=== PATIENT | female | born 1985 | race Caucasian/White ===

== ENCOUNTER 2022-01-27 12:23 | Emergency (ER) | payer OTHER, SELFPAY ==
[2022-01-27] VITALS (9 sets, daily range): BP systolic 91–121; BP diastolic 54–83; PULSE 66–86; RESP 18–24; TEMP 36.4–37.8; O2SAT 95–99
--- NOTE | 2022-01-27 12:32 | DI.CT.S_ITS ---
PROCEDURE: CT HEAD/BRAIN WO CON INDICATIONS: slurred speech earlier,no longer slurring TECHNIQUE: Noncontrast 4.5 mm thick angled axial sections acquired from the foramen magnum to the vertex, with coronal and sagittal reformats. For radiation dose reduction, the following was used: automated exposure control, adjustment of mA and/or kV according to patient size. COMPARISON: None. FINDINGS: Image quality: Metallic streak artifact from external jewlery limits assessment of the posterior fossa CSF spaces: Basal cisterns are patent. No extra-axial fluid collections. Ventricles are normal in size and shape. Brain: No midline shift. No intracranial masses or hemorrhage. Joshi-white matter interface is normal. Skull and face: Calvarium and visualized facial bones are intact, without suspicious lesions. Sinuses: Visualized sinuses and mastoids are clear. IMPRESSION: Unremarkable CT of the brain within the limits of the exam Approved by: Edd Rodriguez M.D. on 01/27/2022 at 11:53
[2022-01-27 12:51] LABS: Add Manual Diff / Slide Review NO; Basophils Absolute Auto 100 /uL (0-100); Basophils Percent Auto 0.6 % (0-2); Eosinophils Absolute Auto 0 /uL (0-450); Eosinophils Percent Auto 0.4 % (2-4); Hematocrit 42.6 % (36-46); Hemoglobin 14.5 g/dL (12.0-16.0); Lymphocytes Absolute Auto 2400 /uL (1100-4500); Lymphocytes Percent Auto 24.3 % (25-40); Mean Corpuscular HGB Conc 33.9 % (30-36); Mean Corpuscular Hemoglobin 30.8 PG (26-34); Mean Corpuscular Volume 90.9 fL (80-100); Monocytes Absolute Auto 600 /uL (0-900); Monocytes Percent Auto 5.8 % (3-14); Neutrophils Absolute Auto 6800 /uL (1500-7000); Neutrophils Percent Auto 68.9 % (50-75); Platelet Count 403 X10^3/uL (150-400); Red Blood Cell Count 4.69 X10^6/uL (4.0-5.2); Red Cell Distribution Width 12.9 % (11.6-14.8); White Blood Cell Count 9.9 X10^3/uL (4.5-11.0)
[2022-01-27 13:02] LABS: Alanine Aminotransferase 22 IU/L (<35); Albumin 4.8 g/dL (3.5-5.0); Albumin Globulin Ratio 1.3 (1.0-2.8); Alkaline Phosphatase 47 U/L (38-126); Aspartate Aminotransferase 26 IU/L (14-36); BUN Creatinine Ratio 14.5 (6-22); Bilirubin Total 1.1 mg/dL (0.2-1.3); Blood Urea Nitrogen 10 mg/dL (7-17); Calcium 9.5 mg/dL (8.4-10.2); Carbon Dioxide 21 mmol/L (22-32); Chloride 103 mmol/L (98-107); Estimated Glomerular Filt Rate > 60 mL/min (>60); Globulin 3.8 g/dL (1.7-4.1); Glucose 90 mg/dL (70-100); HEMOLYSIS 15 (0-50); Potassium 3.9 mmol/L (3.4-5.1); Sodium 138 mmol/L (137-145); Total Protein 8.6 g/dL (6.3-8.2)
[2022-01-27 14:20] LABS: TSH w/ Reflex to FT4 5.82 uIU/mL (0.47-4.68)
--- NOTE | 2022-01-27 17:32 | ED.NEUROSD ---
HPI - Neuro Symptoms/Deficit General Chief Complaint: Neuro Symptoms/Deficit Stated Complaint: slurred speech/weakness/lips tingling Time Seen by Provider: 01/27/22 17:22 Source: patient Mode of arrival: Ambulatory History of Present Illness HPI Narrative: Shu is a 36-year-old woman recently diagnosed with Graves disease on PTU therapy. One week ago she had a dosage adjustment with a decrease in the dosage by 50%. She has otherwise been completely well recently. This afternoon she was at home and suddenly had a sensation of dizziness and sweats and numbness around her face sweats in her extremities and slurred difficult to understand speech according to her male partner who accompanies her. He said that she seemed to have some difficulty walking and was walking as if she were intoxicated but he did not need to actually assist her other than up some stairs. Her symptoms have dramatically improved in the hours she is been waiting here in the ER. No recent fever, no recent trauma, no other health conditions. She denies . Related Data Home Medications Medication Instructions Recorded Confirmed No Known Home Medications 02/24/21 02/24/21 Allergies Allergy/AdvReac Type Severity Reaction Status Date / Time No Known Drug Allergies Allergy Verified 01/27/22 12:27 Review of Systems Review of Systems Narrative: Complete review of systems is negative other than as noted above Patient History Social History Smoking Status: Never smoker Smoking Status: Never smoker alcohol intake frequency: holidays/special occasions only Substance Use Type: does not use Exam Narrative Exam Narrative: GENERAL: Alert, cooperative and in no distress. HEAD: Atraumatic. Normocephalic. EYES: Sclera are clear without icterus. Extraocular movements are full. ENT: No rhinorrhea. Oropharynx is moist. Mouth exam is benign. NECK: Supple. Full range of motion. CARDIOVASCULAR: Normal rate and rhythm without murmur gallop or rub. RESPIRATORY: Clear to auscultation. Breath sounds equal bilaterally. No wheezes, rales, or rhonchi. GASTROINTESTINAL: Abdomen soft, non-tender, nondistended. EXTREMITIES: No edema, full range of motion. No obvious trauma. BACK: Normal inspection, no CVA tenderness. NEURO: Nonfocal examination, normal speech, normal gait. SKIN: No rash or erythema of visible areas PSYCH: Normally oriented. Normal range of affect. Appropriate behavior Cranial nerves are intact, lateral gaze is preserved. There are no visual field deficits. She has normal strength in the upper and lower extremities. Normal cerebellar exam of the upper and lower extremities as well. Initial Vital Signs Initial Vital Signs: Vital Signs Temperature 98.2 F 01/27/22 12:27 Pulse Rate 86 01/27/22 12:27 Respiratory Rate 24 01/27/22 12:27 Blood Pressure 121/83 01/27/22 12:27 Pulse Oximetry 99 01/27/22 12:27 Oxygen Delivery Method 01/27/22 12:27 Course Orders Ordered: ED Orders 01/27/22 12:32 CT head/brain wo con Stat 01/27/22 12:40 Complete Blood Count AUTO DIFF Stat Comprehensive Metabolic Panel Stat Free T4, Direct Thyroxine Stat TSH w/ Reflex to FT4 Stat 01/27/22 18:08 CT angio head and neck Stat Consultations Consultation #1: I discussed the case with Dr. Peng who reviewed the endocrinologic data from his clinic and did not think that PTU was a culpable substance causing the symptoms described. Recommended close outpatient follow-up which is already arranged for tomorrow. Vital Signs Vital signs: Vital Signs - 8 hr 01/27/22 12:27 01/27/22 15:41 01/27/22 17:30 Temperature 98.2 F 100.1 F H 97.5 F L Pulse Rate 86 74 75 Respiratory Rate 24 Blood Pressure 121/83 112/73 121/66 Pulse Oximetry 99 98 99 Oxygen Delivery Method Room Air Room Air Room Air MDM - Neuro Symptoms/Deficit Medical Records Medical records narrative: I can not elicit an abnormality on neurologic examination which is a thorough exam including gait assessment. However, her partner reports a clear-cut gait abnormality earlier today. He also endorses speech disturbance earlier today. This is not currently present. Without a good alternative diagnosis I think vertebral artery dissection should be excluded with posterior circulation ischemia being the thing I am looking for. Will add on CTA head and neck to exclude this and if normal will refer for outpatient follow-up tomorrow as previously arranged. Lab Data Result diagrams: 01/27/22 12:40 01/27/22 12:40 Labs: Lab Results 01/27/22 01/27/22 01/27/22 Range/Units 12:40 12:40 12:40 WBC 9.9 (4.5-11.0) X10^3/uL RBC 4.69 (4.0-5.2) X10^6/uL Hgb 14.5 (12.0-16.0) g/dL Hct 42.6 (36-46) % MCV 90.9 (80-100) fL MCH 30.8 (26-34) PG MCHC 33.9 (30-36) % RDW 12.9 (11.6-14.8) % Plt Count 403 H (150-400) X10^3/uL Neut % (Auto) 68.9 (50-75) % Lymph % (Auto) 24.3 L (25-40) % [place] % (Auto) 5.8 (3-14) % Eos % (Auto) 0.4 L (2-4) % Baso % (Auto) 0.6 (0-2) % Neut # (Auto) 6800 (0394-6748) /uL Lymph # (Auto) 2400 (5539-2298) /uL [place] # (Auto) 600 (0-900) /uL Eos # (Auto) 0 (0-450) /uL Baso # (Auto) 100 (0-100) /uL Sodium 138 (137-145) mmol/L Potassium 3.9 (3.4-5.1) mmol/L Chloride 103 (98-107) mmol/L Carbon Dioxide 21 L (22-32) mmol/L BUN 10 (7-17) mg/dL Creatinine 0.69 (0.52-1.04) mg/dL Estimated GFR > 60 (>60) mL/min BUN/Creatinine Ratio 14.5 (6-22) Glucose 90 (70-100) mg/dL Calcium 9.5 (8.4-10.2) mg/dL Total Bilirubin 1.1 (0.2-1.3) mg/dL AST 26 (14-36) IU/L ALT 22 (<35) IU/L Alkaline Phosphatase 47 (38-126) U/L Total Protein 8.6 H (6.3-8.2) g/dL Albumin 4.8 (3.5-5.0) g/dL Globulin 3.8 (1.7-4.1) g/dL Albumin/Globulin Ratio 1.3 (1.0-2.8) TSH 5.82 H (0.47-4.68) uIU/mL Free T4 0.70 L (0.78-2.19) ng/dL Point of Care Testing Test Results Negative Urine Dip Bedside Urine Glucose Negative Bedside Urine Bilirubin - Negative Bedside Urine Ketone - Negative Urine Specific [place] 1.000 Bedside Urine Occult Blood - Negative Bedside Urine pH 7.0 Bedside Urine Protein - Negative Bedside Urine Urobilinogen - Negative Bedside Urine Nitrite - Negative Bedside Urine Leukocytes - Negative Esterase Imaging Data CT scan - head: Radiologist's Impression: IMPRESSION:? Unremarkable CT of the brain within the limits of the exam ? ? ? Approved by: Edd Rodriguez M.D. on 01/27/2022 at 11:53? 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 Consider MRI for further evaluation if needed. MDM Narrative Medical decision making narrative: Given the severity of the neurologic symptoms reported by her and her partner, I felt that definitive vertebral artery dissection evaluation should be accomplished. CTA head and neck is reassuring. I think outpatient follow-up at this point is safe and appropriate with her pad machine feeder. I did tell them that they should return immediately to the ER for new or progressive symptoms. Otherwise follow-up with Endocrinology tomorrow as planned. Discharge Plan Departure Patient Disposition: Home Clinical Impression: Vertigo, Gait disturbance Activity Restrictions/Additional Instructions: No dangerous cause for the symptoms you reported to me have been identified on detailed imaging evaluation including posterior circulation evaluation CT angiography. Your examination for me at this time is normal. Laboratory data is also reassuring. I recommend follow-up with your pad machine feeder tomorrow as planned. Please return to the ER right away for new or progressive symptoms. Prescriptions: No Action No Known Home Medications
--- NOTE | 2022-01-27 18:08 | DI.CT.S_ITS ---
PROCEDURE: CT ANGIO HEAD AND NECK INDICATIONS: gait disturbance TECHNIQUE: After the administration of intravenous contrast, 1 mm thick sections acquired from the aortic arch through the [place] of [place]. Post-contrast 4.5 mm thick sections then re-acquired from the foramen magnum to the vertex. 3-dimensional lpzrbda-wuyvdibsa-ugxokocodx (MIP) and/or volume rendering reformats were acquired of the central intracranial vasculature and neck separately. For radiation dose reduction, the following was used: automated exposure control, adjustment of mA and/or kV according to patient size. COMPARISON: Same-day head CT FINDINGS: Image quality: Limited by venous contamination. Head angiography: Anterior circulation: ICAs: Normal and symmetric ACAs: Normal and symmetric MCAs: Normal and symmetric AComm: No aneurysm Venous sinuses: patent Posterior circulation: Dominance: Equal Vertebral arteries: No stenosis or occlusion. No aneurysm. Basilar artery: Unremarkable PComms: No aneurysm reading assistant: Unremarkable Neck angiography: Aortic arch and subclavian arteries: Normal flow, no aneurysm. CCAs: No stenosis, occlusion, or aneurysm. ICA origins (by NASCET criteria): No hemodynamically significant narrowing. ICAs: No stenosis, occlusion or aneurysm. ECAs: Origins are patent. Vertebral arteries: Unremarkable Soft tissues: 2.6 cm left thyroid nodule. Soft tissues are otherwise unremarkable. Lung apices: No pneumothorax Bones: No acute or suspicious abnormality. Kyphosis of the cervical spine. IMPRESSION: No high-grade stenosis, dissection, or large vessel occlusion. Consider MRI for further evaluation if needed. Incidental left thyroid nodule can be further evaluated with ultrasound. Any quantitative measurements of stenosis were performed using NASCET criteria. Dictated by: Justino Peraza M.D. on 01/27/2022 at 19:37 Approved by: Justino Peraza M.D. on 01/27/2022 at 19:45
== END 2022-01-27 20:16 | disposition home or self-care (01) ==
PROVIDERS: Emergency Medicine; Emergency Provider Family Medicine Addiction Medicine
DX: R42 Dizziness and giddiness (principal); R26.9 Unspecified abnormalities of gait and mobility
CPT/HCPCS: 36415; 70450; 70496; 70498; 80053; 81003; 81025; 84439; 84443; 85025; 99284

== ENCOUNTER 2022-02-01 10:46 | Emergency (ER) | payer OTHER, SELFPAY ==
[2022-02-01 11:01] VITALS: BP 128/78; PULSE 64; RESP 16; TEMP 36.9; O2SAT 98; BMI 29.7
--- NOTE | 2022-02-01 11:19 | ED_ITS ---
HPI - Back Pain/Injury General Chief Complaint: Back Pain/Injury Stated Complaint: severe back pain, numbness on LT leg/buttocks Time Seen by Provider: 02/01/22 10:51 History of Present Illness HPI Narrative: Shu is a 36-year-old woman recently diagnosed with Graves disease on PTU the rapy presents with low back pain down her left leg. She denies any trauma or injury. She is had no fever or chills and denies use of blood thinners. She is had back pain off and on it various times but never quite like this. Her pain is worse when she moves and improves with rest. She denies any loss of control of bowel or bladder, she has no lower extremity weakness or footdrop. She had been seen by her primary care provider on Wednesday and was given oxycodone and a 5 day course of prednisone and return precautions included presentation to the emergency department for worsening symptoms, she has developed some numbness down this leg hence her visit. She took her oxycodone and prednisone already earlier today, she was able to obtain some gabapentin from a family member and took 100 mg at about 5:00 a.m. and states that did help some Related Data Previous Rx's Medication Instructions Recorded cyclobenzaprine 10 mg tablet 10 mg PO TID PRN muscle spasm #14 02/01/22 tabs gabapentin 300 mg capsule 300 mg PO BEDTIME #14 caps 02/01/22 ketorolac 10 mg tablet 10 mg PO Q6H PRN pain #14 tabs 02/01/22 methylprednisolone 4 mg tablets in See Rx Instructions PO .COMPLEX 02/01/22 a dose pack (Medrol (Bear)) #21 ea Allergies Allergy/AdvReac Type Severity Reaction Status Date / Time No Known Drug Allergies Allergy Verified 01/27/22 12:27 Review of Systems Review of Systems Narrative: GENERAL: Denies chills, fatigue, malaise, fever, sweats. HEENT: Denies sinus pain, ear pain, sore throat, difficulty swallowing, dizziness. RESPIRATORY: Denies dyspnea, cough, wheezing, hemoptysis, sputum. CARDIOVASCULAR: Denies chest pain, palpitations, orthopnea, edema, GASTROINTESTINAL: Denies nausea, vomiting, abdominal pain, diarrhea, constipation, melena. : Denies dysuria, frequency, incontinence, hematuria, urinary retention. MUSCULOSKELETAL: See HPI SKIN: Denies rash, skin lesions, or other NEUROLOGIC: See HPI PSYCHIATRIC: No concerning psychosocial issues. 12 point review of systems is negative except for those stated above Patient History Social History Smoking Status: Never smoker Smoking Status: Never smoker alcohol intake frequency: holidays/special occasions only Substance Use Type: does not use Exam Narrative Exam Narrative: GENERAL: [36] year old patient appears stated age. Well-developed patient, in mild distress. HEAD: Atraumatic. Normocephalic. EYES: Pupils equal round and reactive. Extraocular motions intact. No scleral icterus. No injection or drainage. ENT: Nose without bleeding, purulent drainage. Throat without erythema, tonsillar hypertrophy or exudate. Airway patent. NECK: Trachea midline. Non tender CARDIOVASCULAR: Regular rate and rhythm without murmurs, gallops, or rubs. RESPIRATORY: Clear to auscultation. Breath sounds equal bilaterally. No wheezes, rales, or rhonchi. GASTROINTESTINAL: Abdomen soft, non-tender, nondistended. EXTREMITIES: No edema or joint tenderness. BACK: abrading machine tender but free of any obvious external abnormalities. Patient exam notes decreased range of motion and muscle spasm, but no CVA tenderness, or vertebral point tenderness. There are no symptoms of cauda equina such as saddle anesthesia, and decreased reflexes, decreased sensation or strength. NEURO: AOx3. SKIN: No rash or erythema of visible areas Initial Vital Signs Initial Vital Signs: Vital Signs Temperature 98.4 F 02/01/22 11:01 Pulse Rate 64 02/01/22 11:01 Respiratory Rate 16 02/01/22 11:01 Blood Pressure 128/78 02/01/22 11:01 Pulse Oximetry 98 02/01/22 11:01 Oxygen Delivery Method 02/01/22 11:01 Course Orders Ordered: ED Orders 02/01/22 11:41 MR lumbar spine wo con Stat Discontinued Medications Diazepam (Diazepam 2 Mg Tablet) 2 mg PO NOW ONE Stop: 02/01/22 11:42 Last Admin: 02/01/22 12:32 Dose: 2 mg Documented By: SARI Gabapentin (Gabapentin 300 Mg Capsule) 300 mg PO NOW ONE Stop: 02/01/22 11:42 Last Admin: 02/01/22 12:31 Dose: 300 mg Documented By: SARI Ketorolac Tromethamine (Ketorolac 30 Mg/Ml Vial) 30 mg IM NOW ONE Stop: 02/01/22 11:42 Last Admin: 02/01/22 12:32 Dose: 30 mg Documented By: CTS Vital Signs Vital signs: Vital Signs - 8 hr 02/01/22 11:01 02/01/22 13:39 Temperature 98.4 F Pulse Rate 64 78 Respiratory Rate 16 16 Blood Pressure 128/78 103/54 L Pulse Oximetry 98 99 Oxygen Delivery Method Room Air Room Air MDM - Back Pain/Injury Imaging Data Lumbar MRI: Radiologist's Impression: [address] [address] Magnetic Resonance Report Signed Patient: Maddison Badillo MR#: [id number] : 1985 Acct:[id number] Age/Sex: 36 / F Date of Service: 02/01/22 Loc: ED Accession Number: [id number] ?? Procedure: MR lumbar spine wo con Ordering Provider: Tom Echevarria D.O. PROCEDURE:? MR LUMBAR SPINE WO CON ? INDICATIONS:? Left lower back pain, numbness in groin and left leg, pain ? TECHNIQUE:? Noncontrast sagittal T1 spin echo and T2 fast echo, sagittal STIR, and T2 fast spin echo through the lumbar spine.? In cases with scoliosis, additional coronal T2 fast spin echo may be performed.? ? COMPARISON:? [facility], CT, CT ANGIO HEAD AND NECK, 01/27/2022, 18:21. ? FINDINGS:? Image quality:? Excellent.? ? Alignment and Curvature:? There is normal bony alignment.? ? Bone Marrow:? Marrow is of normal overall signal.? No acute vertebral body compression fractures.? ? Spinal Cord:? Conus medullaris terminates at the L1 level.? Visualized cord demonstrates normal signal and size.? ? Paraspinous Soft Tissues:? No paravertebral masses.? ? T12-L1:? Normal appearance.? ? L1-L2:? Normal appearance.? ? L2-L3:? Normal appearance.? ? L3-L4:? Normal appearance.? ? L4-L5:? Disc space narrowing and circumferential disc bulge results in mild central and no foraminal stenosis ? L5-S1:? Disc space narrowing and broad-based disc bulge results in severe central stenosis.? No foraminal stenosis ? ? IMPRESSION:? ? Degenerative disc disease at L5-S1 results in severe central stenosis ? Approved by: Edd Rodriguez M.D. on 02/01/2022 at 11:52? MDM Narrative Medical decision making narrative: Multiple etiologies of back pain considered including; Epidural abscess, cauda equina, mass occupying lesion, and other considered, but thankfully no red flag findings consistent with neuro surgical emergency are readily apparent. MRI demonstrates canal stenosis, patient given extensive return precautions, chart electronically transmitted to both Dr. Martinez and Dr. Gunter. Patient's questions answered to her apparent satisfaction Discharge Plan Departure Patient Disposition: Home Clinical Impression: Acute left lumbar radiculopathy Instructions: DI for Lumbar Radiculopathy Activity Restrictions/Additional Instructions: *You have been diagnosed with [acute left-sided lumbar radiculopathy.] *What to do: *Please continue to take your regular medications as directed. [ x] New medication prescriptions sent to your pharmacy: [ ] [ ] New medication written as a paper prescription [ ] No new medications given *Please follow up with your primary care provider in 2-3 days, call for an appointment. Let them know you were seen in the Emergency Department and that we ask that you be seen in follow up. We will electronically transmit a record of today's note if your PCP is in our system *If you do not have a primary care provider please contact the [facility] Resource line at [phone]. They will ask some questions about your medical history and help get you set up with a doctor in the community. *Return to Emergency Department if you should have any new, worsening or concerning symptoms, such as [fever greater than 101 F, shaking chills, worsening pain, persistent vomiting or other bothersome symptoms] Prescriptions: New cyclobenzaprine 10 mg tablet 10 mg PO TID PRN (Reason: muscle spasm) Qty: 14 0RF ketorolac 10 mg tablet 10 mg PO Q6H PRN (Reason: pain) Qty: 14 0RF gabapentin 300 mg capsule 300 mg PO BEDTIME Qty: 14 0RF methylprednisolone [Medrol (Bear)] 4 mg tablets,dose pack See Rx Instructions .ROUTE .COMPLEX Qty: 21 0RF Rx Instructions: orally per package directions Referrals: Isaac Martinez DO [Physician] - Bahman Gunter MD [Physician] - Visit Report Forms: Patient Portal/API
--- NOTE | 2022-02-01 11:41 | DI.MRI.S_ITS ---
PROCEDURE: MR LUMBAR SPINE WO CON INDICATIONS: Left lower back pain, numbness in groin and left leg, pain TECHNIQUE: Noncontrast sagittal T1 spin echo and T2 fast echo, sagittal STIR, and T2 fast spin echo through the lumbar spine. In cases with scoliosis, additional coronal T2 fast spin echo may be performed. COMPARISON: [facility], CT, CT ANGIO HEAD AND NECK, 01/27/2022, 18:21. FINDINGS: Image quality: Excellent. Alignment and Curvature: There is normal bony alignment. Bone Marrow: Marrow is of normal overall signal. No acute vertebral body compression fractures. Spinal Cord: Conus medullaris terminates at the L1 level. Visualized cord demonstrates normal signal and size. Paraspinous Soft Tissues: No paravertebral masses. T12-L1: Normal appearance. L1-L2: Normal appearance. L2-L3: Normal appearance. L3-L4: Normal appearance. L4-L5: Disc space narrowing and circumferential disc bulge results in mild central and no foraminal stenosis L5-S1: Disc space narrowing and broad-based disc bulge results in severe central stenosis. No foraminal stenosis IMPRESSION: Degenerative disc disease at L5-S1 results in severe central stenosis Approved by: Edd Rodriguez M.D. on 02/01/2022 at 11:52
[2022-02-01] MEDS: GABAPENTIN 300 MG CAPSULE PO (12:31)
[2022-02-01] MEDS: diazePAM 2 MG TABLET PO (12:32)
[2022-02-01] MEDS: KETOROLAC 30 MG/ML VIAL IM (12:32)
[2022-02-01 13:39] VITALS: BP 103/54; PULSE 78; RESP 16; O2SAT 99
--- NOTE | 2022-02-01 13:41 | PC.NURSE ---
Pt OOB to BR multiple times. states having difficulty urinating. post void bladder scan performed with 0-10ml seen. Pt feeling mildly better post meds. pt educated by Dr Echevarria on results of MRI and sent home with multiple medication RX's and phone numbers for follow up.
== END 2022-02-01 13:55 | disposition home or self-care (01) ==
PROVIDERS: Emergency Provider Emergency Medicine
DX: M54.16 Radiculopathy, lumbar region (principal)
CPT/HCPCS: 51798; 72148; 96372; 99283; J1885

== ENCOUNTER 2022-02-02 10:00 | Observation (INO) | payer OTHER, SELFPAY ==
[2022-02-02] VITALS (17 sets, daily range): BP systolic 93–147; BP diastolic 52–72; PULSE 69–91; RESP 10–20; TEMP 36.3–36.9; O2SAT 96–100; BMI 29.7
--- NOTE | 2022-02-02 11:20 | ED.NEUROSD ---
HPI - Neuro Symptoms/Deficit General Chief Complaint: Neuro Symptoms/Deficit Stated Complaint: leora lyn t-1 Time Seen by Provider: 02/02/22 11:20 Source: patient Mode of arrival: Ambulatory Limitations: no limitations History of Present Illness HPI Narrative: This is a 36-year-old female with history of Graves on PTU, patient was seen yesterday for low back pain and sensation change. She states she presents today she has not urinated since 6:00 p.m. last night. She states she realized her whole vaginal area is numb as well as the rectal area. She states no radiation down her legs, no numbness or tingling down her legs. She has not had incontinence or fecal incontinence. Has not urinated since 6pm yesterday/. Patient denies fevers or chills. No other GI or urinary symptoms. She has never had any back surgeries or interventions. She had an MR yesterday that showed disc bulge resulting in severe canal stenosis at L5-S1. Patient was discharged home on gabapentin which she had taken, Flexeril, Toradol and methylprednisolone. On Anticoagulants: No Related Data Previous Rx's Medication Instructions Recorded cyclobenzaprine 10 mg tablet 10 mg PO TID PRN muscle spasm #14 02/01/22 tabs gabapentin 300 mg capsule 300 mg PO BEDTIME #14 caps 02/01/22 ketorolac 10 mg tablet 10 mg PO Q6H PRN pain #14 tabs 02/01/22 methylprednisolone 4 mg tablets in See Rx Instructions PO .COMPLEX 02/01/22 a dose pack (Medrol (Bear)) #21 ea Allergies Allergy/AdvReac Type Severity Reaction Status Date / Time No Known Drug Allergies Allergy Verified 02/02/22 10:26 Review of Systems Review of Systems ROS Unobtainable: All systems reviewed & are unremarkable except as noted in HPI and below Hematologic/Lymphatic On Anticoagulants: No Patient History Social History household members: spouse Smoking Status: Never smoker alcohol intake: current Smoking Status: Never smoker alcohol intake frequency: holidays/special occasions only Substance Use Type: does not use Exam Narrative Exam Narrative: GENERAL: Alert and oriented x three, female in moderate distress. HEENT: Head normocephalic, atraumatic, EOMI, pupils reactive, face symmetric, moist mucous membranes NECK: Supple, full range of motion CARDIOVASCULAR: Regular rate and rhythm without murmurs, rubs or gallops. RESPIRATORY: Breath sounds equal bilaterally, no wheezes rales or rhonchi. ABDOMEN: Soft, nontender. Normoactive bowel sounds all 4 quadrants. No guarding or rebound, rigidity, no mass : No CVA tenderness BACK: No cervical, thoracic or lumbar vertebral point tenderness. Patient has decreased range of motion. Patient's gait is [antalgic/normal]. Rectal exam patient has tone but does not have any sensation on digital rectal exam. She also has decreased sensation in the perineal area was saddle anesthesia. She has sensation in her bilateral lower legs Muscle strength is 5/5 in lower extremities, DTRs are 2/4 and lower extremities. Dorsalis pedis and tibialis pulses are 2+ and lower extremities. Sensation is intact in the lower extremities. EXTREMITIES: Normal range of motion, no clubbing or edema. Neurovascularly intact NEUROLOGICAL: Cranial nerves II through XII grossly intact. Moving all extremities SKIN: Warm, dry, no petechiae, no rashes or lesions. Initial Vital Signs Initial Vital Signs: Vital Signs Temperature 98.4 F 02/02/22 10:20 Pulse Rate 70 02/02/22 10:20 Respiratory Rate 14 02/02/22 10:20 Blood Pressure 147/62 H 02/02/22 10:20 Pulse Oximetry 99 02/02/22 10:20 Oxygen Delivery Method 02/02/22 10:20 Course Orders Ordered: ED Orders 02/02/22 12:00 Complete Blood Count AUTO DIFF Stat Comprehensive Metabolic Panel Stat Lipase Stat Prothrombin Time INR Stat 02/02/22 12:29 COVID19 -Nasal RAPID/Pre-Proc Stat Acetaminophen (Acetaminophen 325 Mg Tablet) 650 mg PO Q6HR PRN PRN Reason: Pain, Mild (1-3) Al Hydrox/Mg Hydrox/Simethicone (Mag Hydrox/Alum/Simeth 30 Ml Udc) 30 ml PO QID PRN PRN Reason: Dyspepsia Bisacodyl (Bisacodyl 10 Mg Supp) 10 mg OK PRN PRN PRN Reason: Constipation Dexamethasone (Dexamethasone 4 Mg/Ml Vial) 4 mg IV Q6HR [facility] Last Admin: 02/02/22 17:20 Dose: 4 mg Documented By: HCW Docusate Sodium (Docusate 100 Mg Capsule) 100 mg PO BID [facility] Last Admin: 02/02/22 20:19 Dose: 100 mg Documented By: LESLEE Fentanyl (Fentanyl 100 Mcg/2 Ml Inj) 0 mcg IV Q5M PRN PRN Reason: Pain, Moderate (4-6) Last Admin: 02/02/22 15:25 Dose: 50 mcg Documented By: Admin: 02/02/22 15:15 Dose: 50 mcg Documented By: ROLY Hydromorphone HCl (Hydromorphone 0.5 Mg Inj) 0.2 mg IV Q2H PRN PRN Reason: Pain, Moderate (4-6) Last Admin: 02/02/22 20:19 Dose: 0.2 mg Documented By: Admin: 02/02/22 18:35 Dose: 0.2 mg Documented By: SANDRA Hydroxyzine Pamoate (Hydroxyzine Pamoate 25 Mg Capsule) 25 mg PO NOW PRN PRN Reason: Pain, Mild (1-3) Last Admin: 02/02/22 15:17 Dose: 25 mg Documented By: ROLY Hydroxyzine Pamoate (Hydroxyzine Pamoate 25 Mg Capsule) 25 mg PO Q4HR PRN PRN Reason: Nausea And Vomiting Last Admin: 02/02/22 18:35 Dose: 25 mg Documented By: SANDRA Lactated Ringer's (Lactated Ringers) 1,000 mls @ 125 mls/hr IV NOW ONE Stop: 02/02/22 22:12 Last Admin: 02/02/22 14:15 Dose: 125 mls/hr Documented By: Infusion: 02/02/22 14:15 Dose: 125 mls/hr Documented By: Admin: 02/02/22 12:30 Dose: 125 mls/hr Documented By: IF Lactated Ringer's (Lactated Ringers) 1,000 mls @ 120 mls/hr IV CONT RITA Last Admin: 02/02/22 16:53 Dose: Not Given Documented By: HCW Sodium Chloride (Normal Saline 0.9%) 1,000 mls @ 100 mls/hr IV CONT RITA Last Admin: 02/02/22 16:33 Dose: 100 mls/hr Documented By: HCW Cefazolin Sodium/Dextrose (Ancef) 100 mls @ 200 mls/hr IV Q8H RITA Stop: 02/03/22 05:59 Magnesium Hydroxide (Magnesium Hydroxide 30 Ml Udc) 30 ml PO DAILY PRN PRN Reason: Constipation Naloxone HCl (Naloxone 0.4 Mg/Ml Vial) 0.2 mg IV Q2MIN PRN PRN Reason: Opiate Reversal Ondansetron HCl (Ondansetron 4 Mg/2 Ml Inj) 4 mg IV NOW PRN PRN Reason: Nausea And Vomiting Ondansetron HCl (Ondansetron 4 Mg/2 Ml Inj) 4 mg IV Q6HR PRN PRN Reason: Nausea And Vomiting Oxycodone HCl (Oxycodone Ir 5 Mg Tablet) 5 mg PO Q3HR PRN PRN Reason: Pain, Moderate (4-6) Last Admin: 02/02/22 20:19 Dose: 5 mg Documented By: Admin: 02/02/22 16:46 Dose: 5 mg Documented By: SUGAR Sennosides (Sennosides 8.6 Mg Tablet) 17.2 mg PO BEDTIME RITA Last Admin: 02/02/22 20:19 Dose: 17.2 mg Documented By: LESLEE Sodium Biphosphate/Sodium Phosphate (Fleets Enema) 1 each OK PRN PRN PRN Reason: Constipation Discontinued Medications Hydrocodone Bitart/Acetaminophen (Hydrocodone/Acet 5/325 Tablet) 1 tab PO PACUNOW PRN PRN Reason: Mild or moderate pain Bupivacaine HCl (Bupivacaine 0.25% (Pf) Vial) 30 ml INJ NOW ONE Stop: 02/02/22 14:10 Last Admin: 02/02/22 14:09 Dose: 30 ml Documented By: MADI Cefazolin Sodium/Dextrose (Ancef) 100 mls @ 200 mls/hr IV NOW ONE Stop: 02/02/22 14:36 Last Infusion: 02/02/22 13:42 Dose: 0 mls/hr Documented By: Admin: 02/02/22 13:35 Dose: 200 mls/hr Documented By: ENID Methylprednisolone (Methylprednisolone 40 Mg/Ml Vial) 40 mg INJ NOW ONE Stop: 02/02/22 14:09 Last Admin: 02/02/22 14:09 Dose: 40 mg Documented By: MADI Morphine Sulfate (Morphine 4 Mg/Ml Inj) 4 mg IM NOW ONE Stop: 02/02/22 12:11 Last Admin: 02/02/22 12:16 Dose: 4 mg Documented By: RB Ondansetron HCl (Ondansetron 4 Mg/2 Ml Inj) 4 mg IV Q6HR PRN PRN Reason: Nausea And Vomiting Ondansetron HCl (Ondansetron 4 Mg Odt) 4 mg SL NOW ONE Stop: 02/02/22 12:09 Last Admin: 02/02/22 12:17 Dose: 4 mg Documented By: KIARA Oxycodone/Acetaminophen (Oxycodone/Acetaminophen 5/325 Tablet) 1 tab PO PACUNOW PRN PRN Reason: Mild or Moderate Pain Last Admin: 02/02/22 15:53 Dose: 1 tab Documented By: Admin: 02/02/22 15:16 Dose: 1 tab Documented By: AL Consultations Consultation #1: Dr. Cool, orthopedic surgery. called back [phone]. Will see if Dr. Gunter is here today. If he is not needs to transfer for surgical intervention. Time: 11:38 Vital Signs Vital signs: Vital Signs - 8 hr 02/02/22 10:20 Temperature 98.4 F Pulse Rate 70 Respiratory Rate 14 Blood Pressure 147/62 H Pulse Oximetry 99 Oxygen Delivery Method Room Air MDM - Neuro Symptoms/Deficit Lab Data Result diagrams: 02/02/22 12:00 02/02/22 12:00 Labs: Lab Results 02/02/22 02/02/22 02/02/22 Range/Units 12:00 12:00 12:00 WBC 17.4 H (4.5-11.0) X10^3/uL RBC 4.06 (4.0-5.2) X10^6/uL Hgb 12.9 (12.0-16.0) g/dL Hct 36.7 (36-46) % MCV 90.3 (80-100) fL MCH 31.8 (26-34) PG MCHC 35.2 (30-36) % RDW 12.8 (11.6-14.8) % Plt Count 335 (150-400) X10^3/uL Neut % (Auto) 74.2 (50-75) % Lymph % (Auto) 18.0 L (25-40) % [place] % (Auto) 7.4 (3-14) % Eos % (Auto) 0.1 L (2-4) % Baso % (Auto) 0.3 (0-2) % Neut # (Auto) 74467 H (0266-3764) /uL Lymph # (Auto) 3100 (8507-9726) /uL [place] # (Auto) 1300 H (0-900) /uL Eos # (Auto) 0 (0-450) /uL Baso # (Auto) 0 (0-100) /uL PT 12.9 H (10.1-12.7) SECONDS INR 1.1 (0.9-1.3) Sodium 137 (137-145) mmol/L Potassium 3.4 (3.4-5.1) mmol/L Chloride 102 (98-107) mmol/L Carbon Dioxide 23 (22-32) mmol/L BUN 20 H (7-17) mg/dL Creatinine 0.62 (0.52-1.04) mg/dL Estimated GFR > 60 (>60) mL/min BUN/Creatinine Ratio 32.3 H (6-22) Glucose 90 (70-100) mg/dL Calcium 9.0 (8.4-10.2) mg/dL Total Bilirubin 0.8 (0.2-1.3) mg/dL AST 24 (14-36) IU/L ALT 18 (<35) IU/L Alkaline Phosphatase 38 (38-126) U/L Total Protein 7.4 (6.3-8.2) g/dL Albumin 4.1 (3.5-5.0) g/dL Globulin 3.3 (1.7-4.1) g/dL Albumin/Globulin Ratio 1.2 (1.0-2.8) Lipase 38 (23-300) U/L SARS-CoV-2 (PCR) (Negative) 02/02/22 Range/Units 12:29 WBC (4.5-11.0) X10^3/uL RBC (4.0-5.2) X10^6/uL Hgb (12.0-16.0) g/dL Hct (36-46) % MCV (80-100) fL MCH (26-34) PG MCHC (30-36) % RDW (11.6-14.8) % Plt Count (150-400) X10^3/uL Neut % (Auto) (50-75) % Lymph % (Auto) (25-40) % [place] % (Auto) (3-14) % Eos % (Auto) (2-4) % Baso % (Auto) (0-2) % Neut # (Auto) (3328-2026) /uL Lymph # (Auto) (3062-3273) /uL [place] # (Auto) (0-900) /uL Eos # (Auto) (0-450) /uL Baso # (Auto) (0-100) /uL PT (10.1-12.7) SECONDS INR (0.9-1.3) Sodium (137-145) mmol/L Potassium (3.4-5.1) mmol/L Chloride (98-107) mmol/L Carbon Dioxide (22-32) mmol/L BUN (7-17) mg/dL Creatinine (0.52-1.04) mg/dL Estimated GFR (>60) mL/min BUN/Creatinine Ratio (6-22) Glucose (70-100) mg/dL Calcium (8.4-10.2) mg/dL Total Bilirubin (0.2-1.3) mg/dL AST (14-36) IU/L ALT (<35) IU/L Alkaline Phosphatase (38-126) U/L Total Protein (6.3-8.2) g/dL Albumin (3.5-5.0) g/dL Globulin (1.7-4.1) g/dL Albumin/Globulin Ratio (1.0-2.8) Lipase (23-300) U/L SARS-CoV-2 (PCR) Negative (Negative) Point of Care Testing Test Results Negative Urine Dip Bedside Urine Glucose Negative Bedside Urine Bilirubin - Negative Bedside Urine Ketone - Negative Urine Specific [place] 1.015 Bedside Urine Occult Blood - Negative Bedside Urine pH 6.0 Bedside Urine Protein - Negative Bedside Urine Urobilinogen 0.2 Bedside Urine Nitrite - Negative Imaging Data Lspine MRI: Radiologist's Impression: [address] [address] Magnetic Resonance Report Signed Patient: Maddison Badillo MR#: [id number] : 1985 Acct:[id number] Age/Sex: 36 / F Date of Service: 02/01/22 Loc: ED Accession Number: [id number] ?? Procedure: MR lumbar spine wo con Ordering Provider: Tom Echevarria D.O. PROCEDURE:? MR LUMBAR SPINE WO CON ? INDICATIONS:? Left lower back pain, numbness in groin and left leg, pain ? TECHNIQUE:? Noncontrast sagittal T1 spin echo and T2 fast echo, sagittal STIR, and T2 fast spin echo through the lumbar spine.? In cases with scoliosis, additional coronal T2 fast spin echo may be performed.? ? COMPARISON:? [facility], CT, CT ANGIO HEAD AND NECK, 01/27/2022, 18:21. ? FINDINGS:? Image quality:? Excellent.? ? Alignment and Curvature:? There is normal bony alignment.? ? Bone Marrow:? Marrow is of normal overall signal.? No acute vertebral body compression fractures.? ? Spinal Cord:? Conus medullaris terminates at the L1 level.? Visualized cord demonstrates normal signal and size.? ? Paraspinous Soft Tissues:? No paravertebral masses.? ? T12-L1:? Normal appearance.? ? L1-L2:? Normal appearance.? ? L2-L3:? Normal appearance.? ? L3-L4:? Normal appearance.? ? L4-L5:? Disc space narrowing and circumferential disc bulge results in mild central and no foraminal stenosis ? L5-S1:? Disc space narrowing and broad-based disc bulge results in severe central stenosis.? No foraminal stenosis ? ? IMPRESSION:? ? Degenerative disc disease at L5-S1 results in severe central stenosis ? Approved by: Edd Rodriguez M.D. on 02/01/2022 at 11:52? [facility] Narrative Medical decision making narrative: This is a 36-year-old female who presents with low back pain, loss of sensation/saddle anesthesia, no incontinence but is having urinary retention and had 15 mL retained with an L-spine MRI yesterday without contrast which showed disc space narrowing and circumferential bulge with severe central stenosis stenosis at L5-S1 and mild central stenosis at L4-L5 with no foraminal stenosis. Patient is negative point of care and UA. Spoke with local ortho emergently to see if our spinal surgeon is currently available, Dr. Cool was consulted, Dr. Gunter our spinal surgeon is here and currently in the OR. Patient is accepted for admission planning for OR today. Critical Care Time Critical Care Time Critical Care Time: Yes Total Critical Care Time: 20 Attestation: The high probability of a clinically significant, sudden or life threatening deterioration of the [neuro] system(s) required my full and direct attention, intervention and personal management. The aggregate critical care time was [] minutes. This time is in addition to time spent performing reported procedures but includes the following: [x] Data Review and interpretation [x] Patient assessment and monitoring of vital signs [x] Documentation [x] Medication orders and management Discharge Plan Departure Patient Disposition: Admitted As Inpatient Clinical Impression: Cauda equina syndrome, Acute urinary retention Admit Date/Time: 02/02/22 12:34 Admit Provider: Bahman Gunter
[2022-02-02] MEDS: MORPHINE 4 MG/ML INJ IM (12:16)
[2022-02-02] MEDS: ONDANSETRON 4 MG ODT SL (12:17)
[2022-02-02 12:23] LABS: Add Manual Diff / Slide Review NO; Basophils Absolute Auto 0 /uL (0-100); Basophils Percent Auto 0.3 % (0-2); Eosinophils Absolute Auto 0 /uL (0-450); Eosinophils Percent Auto 0.1 % (2-4); Hematocrit 36.7 % (36-46); Hemoglobin 12.9 g/dL (12.0-16.0); Lymphocytes Absolute Auto 3100 /uL (1100-4500); Mean Corpuscular HGB Conc 35.2 % (30-36); Mean Corpuscular Hemoglobin 31.8 PG (26-34); Mean Corpuscular Volume 90.3 fL (80-100); Monocytes Absolute Auto 1300 /uL (0-900); Monocytes Percent Auto 7.4 % (3-14); Neutrophils Absolute Auto 12900 /uL (1500-7000); Neutrophils Percent Auto 74.2 % (50-75); Platelet Count 335 X10^3/uL (150-400); Red Blood Cell Count 4.06 X10^6/uL (4.0-5.2); Red Cell Distribution Width 12.8 % (11.6-14.8); White Blood Cell Count 17.4 X10^3/uL (4.5-11.0)
--- NOTE | 2022-02-02 12:29 | P.HP_ITS ---
History of Present Illness History of Present Illness Date Patient Seen: 02/02/22 Time Patient Seen: 12:30 Date of Onset of Symptoms: 02/01/22 Chief complaint: cant pee t-1 Narrative: Ms. Badillo is here for acute onset of inability to urinate and numbness in her legs. She was seen in the ER yesterday mostly for back pain. She did not have c omplaints of bladder or bowel control issue yesterday when she presented. She came back to ER today for inability to urinate. ER work up showed patient has urinary retention and loss of rectal tone on exam. Patient's MRI yesterday shows large L5-S1 disc herniation with severe spinal stenosis. Patient has active cauda equina syndrome. Patient is being taken to the OR emergently for surgical decompression. Patient History Family & Social History Safety & Behavioral: Feels Safe in Current Yes Environment Been Physically Hurt or No Threatened By a Person Tobacco & Substance use: Smoking Status Never smoker alcohol intake frequency holiday/special occasion Substance Use Type does not use Meds Home Medications and Allergies Home Medications Medication Instructions Recorded Confirmed Type cyclobenzaprine 10 mg tablet 10 mg PO TID PRN muscle spasm #14 02/01/22 Rx tabs gabapentin 300 mg capsule 300 mg PO BEDTIME #14 caps 02/01/22 Rx ketorolac 10 mg tablet 10 mg PO Q6H PRN pain #14 tabs 02/01/22 Rx methylprednisolone 4 mg tablets in See Rx Instructions PO .COMPLEX 02/01/22 Rx a dose pack (Medrol (Bear)) #21 ea Allergies Allergy/AdvReac Type Severity Reaction Status Date / Time No Known Drug Allergies Allergy Verified 02/02/22 10:26 Exam Vital Signs (past 8 hours): - 02/02/22 10:20 Temperature 98.4 F Pulse Rate 70 Respiratory Rate 14 Blood Pressure 147/62 H Pulse Oximetry 99 Oxygen Delivery Method Room Air Oxygen Delivery Method Room Air Back/Spine/Pelvis Other: Pain in lower back with movement. Neuro Other: Decreased sensibility in BLE in L5, S1 dermatome. Motor function 4/5 in BLE in ankle plantar and dorsiflexion. + straight leg raise in BLE. No rectal tone per ER exam, this was not repeated again by me since her exam was performed this morning. Objective Labs Result Diagrams: 02/02/22 12:00 02/02/22 12:00 Labs: Laboratory Results - last 24 hr 02/02/22 12:00 WBC 17.4 H RBC 4.06 Hgb 12.9 Hct 36.7 MCV 90.3 MCH 31.8 MCHC 35.2 RDW 12.8 Plt Count 335 Neut % (Auto) 74.2 Lymph % (Auto) 18.0 L [place] % (Auto) 7.4 Eos % (Auto) 0.1 L Baso % (Auto) 0.3 Neut # (Auto) 35538 H Lymph # (Auto) 3100 [place] # (Auto) 1300 H Eos # (Auto) 0 Baso # (Auto) 0 Assessment & Plan Assessment & Plan narrative: 36 yo F with active cauda equina syndrome due to large L5-S1 disc herniation. Informed consent was obtained and placed in the chart. Risks for surgery include but not limited to bleeding, persisting bladder/bowel control issue/incontinence, persisting numbness and weakness in legs, need for additional procedure, persisting pain, infection. Patient understands and would like to proceed with surgery. I scheduled her for L5-S1 laminectomy/discectomy. Time Spent With Patient Critical Care time: I spent a total of [] minutes of critical care time on this patient's care today; this time is exclusive of procedural time.
[2022-02-02 12:30] LABS: INR 1.1 (0.9-1.3); Prothrombin Time 12.9 SECONDS (10.1-12.7)
[2022-02-02] MEDS: LACTATED RINGERS 1,000 ML 125 ML IV ×2 (12:30→14:15)
--- NOTE | 2022-02-02 12:51 | PC.NURSE ---
Patient came in yesterday complaining of back pain. No trauma noted per patient. At that time she was having numbness and tingling inb her medial thigh and vaginal area. Patient was treated with medications and MRI completed. Patient discharged home. Patient returns today with increased pain, numbness and tingling without ability to void. Patient retaining 1L on bladder scan. Catheter placed and 1500ml output. Complaining of worsening numbness in vaginal and buttock area. Decreased rectal tone upon exam by Dr. Barbosa.
[2022-02-02 12:54] LABS: COVID19 -Nasal RAPID Negative (Negative)
[2022-02-02 13:03] LABS: Alanine Aminotransferase 18 IU/L (<35); Albumin 4.1 g/dL (3.5-5.0); Albumin Globulin Ratio 1.2 (1.0-2.8); Alkaline Phosphatase 38 U/L (38-126); Aspartate Aminotransferase 24 IU/L (14-36); BUN Creatinine Ratio 32.3 (6-22); Bilirubin Total 0.8 mg/dL (0.2-1.3); Blood Urea Nitrogen 20 mg/dL (7-17); Carbon Dioxide 23 mmol/L (22-32); Chloride 102 mmol/L (98-107); Estimated Glomerular Filt Rate > 60 mL/min (>60); Globulin 3.3 g/dL (1.7-4.1); Glucose 90 mg/dL (70-100); HEMOLYSIS 36 (0-50); Lipase 38 U/L (23-300); Potassium 3.4 mmol/L (3.4-5.1); Sodium 137 mmol/L (137-145); Total Protein 7.4 g/dL (6.3-8.2)
--- NOTE | 2022-02-02 13:07 | SUR.HOLD ---
took all belongings including belly button, and three hand rings. Bilat earrings left in place. unable to remove
--- NOTE | 2022-02-02 13:14 | SUR.HOLD ---
Pt to OR after consulting with Dr Gunter, Anesth and nerve special procedures tech with Michael at bedside.
[2022-02-02] MEDS: CEFAZOLIN 2 GM/100 ML PREMIX 100 ML IV ×2 (13:35→21:37)
--- NOTE | 2022-02-02 14:02 | SUR.OPER ---
Prone on spine table, head in foam head support, padded chest and pelvic supports, gel pad at knees, lower legs supported by pillows; nipples, genitalia and toes free of pressure, arms secured on foam padded arm boards at <90 degrees abduction. Tape over blanket at thigh secured to table.
[2022-02-02] MEDS: BUPIVACAINE 0.25% (PF) VIAL 30 ML INJ (14:09)
--- NOTE | 2022-02-02 14:15 | DI.RAD.S_ITS ---
PROCEDURE: XR LUMBAR SPINE 2-3V INDICATIONS: L5-S1 MICRODISCECTOMY TECHNIQUE: Low resolution fluoroscopic spot films were obtained intraoperatively lower lumbar spine COMPARISON: None. FINDINGS: Low resolution intraoperative fluoroscopic spot films show instrumentation posterior to the L 5-S1 disc space IMPRESSION: Fluoroscopic guidance Dictated by: Edd Rodriguez M.D. on 02/02/2022 at 14:11 Approved by: Edd Rodriguez M.D. on 02/02/2022 at 14:12
--- NOTE | 2022-02-02 14:42 | P.OP_ITS ---
Operative Date/Time/Diagnoses Date of procedure: 02/02/22 Time of procedure: 13:30 Pre-op diagnosis: 1. L5-S1 disc herniation 2. Spinal stenosis 3. Cauda equina syndrome Post-op diagnosis: same Procedure & Clinicians Procedure: 1. L5-S1 bilateral laminectomy and microdiscectomy 2. Utilization of microsurgical technique and operating microscope Same procedure as scheduled: Yes Indications: Ms. Badillo presented to ER today for worsening symptoms consistent with cauda equina syndrome due to a large L5-S1 disc herniation. She has urinary retention and loss of rectal tone along with saddle parathesia consistent with cauda equina syndrome. She was consented risks and benefits of surgery and taken to the OR emergently for surgical decompression. Surgeon: Bahman Gunter Director Strategy: Tiny Villanueva Click Yes if Unassisted: No Anesthesia Type: General Operative Notes Closure Type: primary Specimen(s): none sent Applied: catheter Estimated Blood Loss (mL): 10 Blood products transfused: none Procedure in detail: Patient was seen in the preoperative area. Risks and benefits of the surgery was discussed with the patient. Informed consent was obtained from the patient and placed in the chart. Surgical site was marked. Patient was taken to the operative room. General anesthesia was administered. Prophylactic antibiotic was given to the patient less than 30 min before the incision was made. Patient was placed into a prone position on the Armen table. Patient's back was then prepped and draped in the sterile fashion. Time-out was performed at this time. Using AP and lateral C-arm imaging the interval between L5-S1 was identified and marked on patient's back. A 1 inch incision 1 in from midline was made on the Left side. The fascia was incised in line with skin incision. Globus MARS retractors was placed inside the incision and docked onto the L5 lamina. Using microsurgical technique and operating microscope, bilateral L5 laminectomy was performed using a Kerrison rongeur. Liagamentum flavum was resected at the site of the laminectomy until either side of the dura was able to be visualized to confirm full decompression. The disc space at L5-S1 was identified. Microdiscectomy was performed by incising the annulus with #11 blade. Mi crocurettes and pituitary was used to removed herniated disc fragments of disc from the epidural space. There was one large extruded disc fragment into epidural space compressing on the thecal sac which was easily removed from the epidural space without any difficulty. After the microdiskectomy was completed, the area medial lateral superior and inferior to the area of the laminectomy and microdiskectomy was inspected and explored using a micro curette. No other impinging structure was identified. The wound was then irrigated with sterile normal saline. 40 mg Depo-Medrol was placed into the epidural space. The deep fascia was closed with 1-0 Vicryl. The subcutaneous tissue was closed with 2-0 Vicryl. The skin was closed with 4-0 Monocryl. Patient tolerated the procedure well. There were no complications. Patient was transferred recovery room in stable condition. EMG and SSEP was used to monitor the patient's neurologic status. Patient's signals were stable throughout the entire procedure. Complications: none Post-operative Condition: stable Disposition: observation Plan for aftercare: Admit for observation
[2022-02-02] MEDS: fentaNYL 100 MCG/2 ML INJ IV ×2 (15:15→15:25)
[2022-02-02] MEDS: OXYCODONE/ACETAMINOPHEN 5/325 TABLET 1 TAB PO ×2 (15:16→15:53)
[2022-02-02] MEDS: hydrOXYzine pamoate 25 MG CAPSULE PO ×3 (15:17→23:33)
[2022-02-02] MEDS: SODIUM CHLORIDE 0.9% 1,000 ML 100 ML IV (16:33)
[2022-02-02] MEDS: OXYCODONE IR 5 MG TABLET PO ×2 (16:46→20:19)
[2022-02-02] MEDS: DEXAMETHASONE 4 MG/ML VIAL IV ×2 (17:20→23:18)
[2022-02-02] MEDS: HYDROMORPHONE 0.5 MG INJ 0.2 MG IV ×4 (18:35→22:24)
[2022-02-02] MEDS: DOCUSATE 100 MG CAPSULE PO (20:19)
[2022-02-02] MEDS: SENNOSIDES 8.6 MG TABLET 17.2 MG PO (20:19)
[2022-02-02] MEDS: OXYCODONE IR 5 MG TABLET 10 MG PO (23:18)
[2022-02-02] MEDS: ACETAMINOPHEN 325 MG TABLET 650 MG PO (23:34)
[2022-02-03] MEDS: GABAPENTIN 300 MG CAPSULE PO ×2 (01:08→18:27)
[2022-02-03] MEDS: HYDROMORPHONE 0.5 MG INJ IV (01:09)
[2022-02-03] MEDS: SODIUM CHLORIDE 0.9% 1,000 ML 100 ML IV (03:20)
[2022-02-03 03:21] VITALS: BP 100/53; PULSE 64; RESP 18; TEMP 36.7; O2SAT 98
[2022-02-03] MEDS: OXYCODONE IR 5 MG TABLET 10 MG PO ×6 (05:59→21:52)
[2022-02-03] MEDS: DEXAMETHASONE 4 MG/ML VIAL IV ×3 (05:59→17:39)
[2022-02-03] MEDS: CEFAZOLIN 2 GM/100 ML PREMIX 100 ML IV (06:02)
[2022-02-03] MEDS: DOCUSATE 100 MG CAPSULE PO ×2 (08:55→20:34)
[2022-02-03] MEDS: ACETAMINOPHEN 325 MG TABLET 650 MG PO ×2 (08:55→14:54)
[2022-02-03] MEDS: MAGNESIUM HYDROXIDE 30 ML UDC PO (08:56)
[2022-02-03 09:33] VITALS: BP 107/68; PULSE 83; RESP 16; TEMP 37.1; O2SAT 99
--- NOTE | 2022-02-03 10:15 | PT.IIE ---
Current Diagnoses Cauda equina syndrome (02/02/22) Surgery Performed Operation Date: 02/02/22 12:45 Actual Procedures p L5-S1 laminectomy/microdiscectomy(Not Applicable) - Bahman Gunter MD Physical Therapy Inpatient Evaluation/Re-Eval M1 PT/OT-IP Prior Functional Status Start: 02/03/22 11:08 Freq: NEEDED Status: Active Protocol: Document 02/03/22 10:15 DLM (Rec: 02/03/22 11:24 DLM [id number]) Medical Review Prior Functional Status Medical History Reviewed Yes Diet/Fluid Consistency Regular Communication WNL Mobility and Gait Independent without device, she likes to walk and hike Activities of Daily Living and IADL's Independent, works from home for [employer], she is on the computer sitting and standing, she has a standing desk Prior Functional Level (Other details) back pain was making sitting difficult before surgery Social History Household Members spouse Living Arrangements House Number of Floors (Floors) Two Floors Number of Stairs To Enter/Railing? 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 Additional Social History Comment Her parents are flying into town and can help after surgery, her works M2 PT-IP Current Condition Start: 02/03/22 11:08 Freq: NEEDED Status: Active Protocol: Document 02/03/22 10:15 DLM (Rec: 02/03/22 11:24 DLM [id number]) Physical Therapy Current Condition Current Condition Evaluation Date 02/03/22 Treatment Diagnosis L5-S1 microsurgery, laminectomy/discectomy, impaired mobility/gait Onset Date 02/02/22 M3 PT-IP Subjective Start: 02/03/22 11:08 Freq: NEEDED Status: Active Protocol: Document 02/03/22 10:15 DLM (Rec: 02/03/22 11:24 DLM [id number]) Subjective Physical Therapy Visit Type Type Initial Evaluation Visit Start Time 09:30 Visit Stop Time 10:15 Total Visit Minutes 45 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 She reports mild dizziness/light-headed with positional changes. She reports less pain with walking and more with sitting in recliner. No increased pain sitting edge of bed. Patient Goals Discharge home with family support Therapy Pain Assessment Pain When Pain Assessed During Mobility Pain Present Pain Present Pain Reported Location Lower Back Intensity 3 Scale Used Numeric (0 - 10) Description Aching,Radiating,Tender,With Movement Pain Behaviors Guarding Pain Management Techniques Re-positioning,Timing of Activity with Medications M4 PT-IP Mobility and Gait Start: 02/03/22 11:08 Freq: NEEDED Status: Active Protocol: Document 02/03/22 10:15 DLM (Rec: 02/03/22 11:24 DLM [id number]) PT-Bed Mobility Assessment Rolling Type of Rolling Log Rolling Level of Assist Standby Assistance Supine to Sit Supine to Sit Standby Assistance,Bedrails Sit to Supine Sit to Supine Standby Assistance Scooting Scooting to Edge of Bed Independent PT-Transfer Assessment Sit to and From Stand Sit to and from Stand Standby Assistance,Use of Upper Extremities Equipment Transfer Assistive Device Gait Belt,Front Wheeled Walker Transfers Transfer Destination Bed,Chair Transfer Technique Stand Step Pivot Transfer Ability Level of Assist Standby Assistance,Use of Upper Extremities Comments Mobility Comments Slowly progressed positional changes due to light- headedness. Pt up to the recliner this visit and trialed positioning to manage her pain. She appears to have the least pain with sitting bolt upright with support under her feet. Pt left up in the recliner with needs close including call light. She was instructed to have staff assist for mobility. She still has a yanez catheter. Gait Assessment Gait Gait Assistance Required: Standby Assistance Distance (Feet) 50 Able to Maintain Weight Bearing Status Yes During Gait Assistive Devices Assistive Device Gait Belt,Front Wheeled Walker Factors Limiting Gait Function Factors Limiting Gait Function Decreased Activity Tolerance, Decreased Sensation,Pain Comments Gait Comments She demonstrates good use of FWW using it only for balance, minimal UE support needed on FWW at this time Stair Climbing Assessment Comments Stair Climbing Comments not completed this visit PT-Balance Assessment Sitting Balance and Reactions Static Sitting Balance Ability Normal Dynamic Sitting Balance Ability Normal Standing Balance and Reactions Static Standing Balance Ability Good Dynamic Standing Balance Ability Good Device Used FWW M5 PT-IP Objective Assessments Start: 02/03/22 11:08 Freq: NEEDED Status: Active Protocol: Document 02/03/22 10:15 DLM (Rec: 02/03/22 11:24 DLM [id number]) Orientation Orientation/Cognition Level of Alertness Alert Orientation Name,Age,Birthday,Month,Date, Year,Day of Week,Place, Situation Language Function Ability No Deficits Noted Safety Awareness Understands Safety Issues Memory Description No Deficits Noted Comments she reports she is worried about ongoing sensory changes Gross Range of Motion Upper Extremity ROM Assessment Within Functional Limits Lower Extremity ROM Assessment Within Functional Limits Strength Upper Extremity Strength Assessment Within Functional Limits Lower Extremity Strength Assessment Within Functional Limits Comments Strength Comments back pain limits functional core strength post-op Coordination Assessment Gross Coordination Gross Coordination WNL Sensation Assessment Sensation Gross Sensation Left LE Impaired Sensation Description Paresthesia,Numbness,[place] Comments Sensation Comments saddle area, buttocks and into left post thigh area Muscle Tone Muscle Tone WNL Yes M6 PT-IP Treatment Start: 02/03/22 11:08 Freq: NEEDED Status: Active Protocol: Document 02/03/22 10:15 DLM (Rec: 02/03/22 11:24 DLM [id number]) Physical Therapy Treatment Exercises Exercises Ankle Pumps Education Education Provided Precautions,Post-Op Packet, Safety Other Treatments Other Treatment Performed no family present this visit Vital signs: seated 113/73, HR 91 M7 PT-IP Assessment and Plan Start: 02/03/22 11:08 Freq: NEEDED Status: Active Protocol: Document 02/03/22 10:15 DLM (Rec: 02/03/22 11:24 DLM [id number]) PT Summary Assessment and Plan Potential Rehabilitation Potential Excellent Status of Condition at Evaluation Evolving Summary Impairments Pain,ROM,Strength,Balance, Sensation,Bed Mobility, Transfers,Gait,Activity Tolerance Assessment Summary Ranjana is alert and resting in bed at the start of this visit. She tolerated gait in her room with the FWW well. She is up in the recliner. Educated pt in her spine precautions and home safety issues. She has no DME at home and will continue to assess home needs. She is independent and active at baseline. She had mild light-headedness this visit but it did not prevent mobility. She progressing well but not ready for discharge yet. Will see her this afternoon to progress gait and do stair training. Will continue to assess the least restrictive assistive device to assist with home gait. Goals Bed Mobility Goal Independent Transfer Goal Independent,Cane,Front Wheeled Walker Gait Goal Independent,Cane,Front Wheel Walker Gait Distance 150 feet Other Goals up and down 2 steps without rail, CG assist Days to Meet Goals 2 Frequency of Treatment Frequency Of Treatment Twice a Day Treatment Plan Physical Therapy Treatment Plan Bed Mobility Training,Transfer Training,Gait Training, Therapeutic Exercise,Balance Retraining,Post Op Education, Discharge Planning,Hot or Cold Pack,Neuromuscular Re-ed Other Recommendations and Next Treatment determine if she needs FWW for Focus home use, stair training Precautions Lumbar Precautions Log Roll,No Twisting,Limit Bending,Lifting Restriction of 10 lbs,Gait Belt above Incisional Area Recommendations To Nursing Amount of Assist Needed Standby Assistance Discharge Recommendations PT Discharge Recommendations Home with Assistance Other Discharge Recommendations Assist from family Transportation Needs at Discharge Private Vehicle
[2022-02-03] MEDS: hydrOXYzine pamoate 25 MG CAPSULE PO ×2 (11:12→21:53)
[2022-02-03] MEDS: PROPYLTHIOURACIL 50 MG 1 EACH PO (12:02)
--- NOTE | 2022-02-03 12:10 | OT.IP.EVAL ---
Current Diagnoses Cauda equina syndrome (02/02/22) Surgery Performed Operation Date: 02/02/22 12:45 Actual Procedures p L5-S1 laminectomy/microdiscectomy(Not Applicable) - Bahman Gunter MD Occupational Therapy Inpatient Evaluation/Re-Eval M1 PT/OT-IP Prior Functional Status Start: 02/03/22 11:08 Freq: NEEDED Status: Active Protocol: Document 02/03/22 11:10 [facility] (Rec: 02/03/22 14:48 [facility] [id number]) Medical Review Prior Functional Status Medical History Reviewed Yes Diet/Fluid Consistency Regular Communication WNL Mobility and Gait Independent without device, she likes to walk and hike Activities of Daily Living and IADL's Independent, works from home for [employer], she is on the computer sitting and standing, she has a standing desk Prior Functional Level (Other details) back pain was making sitting difficult before surgery Social History Household Members spouse Living Arrangements House Number of Floors (Floors) Two Floors Number of Stairs To Enter/Railing? 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 M2 OT-IP Current Condition Start: 02/03/22 14:22 Freq: Status: Active Protocol: Document 02/03/22 11:10 [facility] (Rec: 02/03/22 14:48 [facility] [id number]) Occupational Therapy Current Condition Current Condition Evaluation Date 02/03/22 Treatment Diagnosis S/p L5-S1 laminectomy and microdiscectomy Diagnosis Onset Date 02/02/22 M3 OT- IP Subjective and Pain Start: 02/03/22 14:22 Freq: Status: Active Protocol: Document 02/03/22 11:10 [facility] (Rec: 02/03/22 14:48 [facility] [id number]) OT- Subjective Occupational Therapy Visit Type Type Initial Evaluation Visit Start Time 11:10 Visit Stop Time 12:00 Total Visit Minutes 50 Occupational Therapy Visit Comments Patient Comments Pt wanting agreed to get up. Pt's present in the room. PA was in the room for part of the session. Patient/Caregiver Goals To go home. OT Pain Assessment Pain When Pain Assessed At Rest Pain Present Pain Present Pain Reported M4 OT- IP ADL's Start: 02/03/22 14:22 Freq: Status: Active Protocol: Document 02/03/22 11:10 [facility] (Rec: 02/03/22 14:48 [facility] [id number]) OT [id number]-[id number] Comments OT Self-Feeding Comments Not at meal time, no issues anticipated. OT ADL-Grooming General Evaluation Grooming Ability Standby Assistance Areas Needing Assistance Retrieving/Set-up of Grooming Items OT ADL-Oral Care General Eval Oral Care Ability Standby Assistance Areas of Assistance Retrieving/Set-Up of Items Comments Oral Care Comments Pt just needing initial vc to spit into a cup to best follow her back precautions. Pt states her counters at home are very low. OT ADL-Dressing General Eval Lower Body Dressing Ability Minimal Assistance,Maximum Assistance Comments OT Dressing Comments Able to initiate education of LB dressing needs for use of sock aid, airplane pilot crop dusting, and long handled shoe horn. OT ADL-Toileting General Evaluation Toileting Ability Minimal Assistance Areas Needing Assistance Perform Perineal Hygiene Comments OT Toileting Comments Pt unable to comfortably reach and would benefit from use of toilet paper aid. Pt has a bidet but has not been set up at home yet. Use of BSC over the toilet helped pt's ability to safely get up from the toilet as her toilet at home is very low. Also suggested for pt to get wipes and get pads/briefs. Currently pt unable to tell or has feeling to be able to urinate or have a bowel movement at this time. OT ADL-Bathing Comments OT Bathing Comments Pt states her walk in shower is too small and open to getting a tub bench for the tub /shower. M5 OT- IP IADL's Start: 02/03/22 14:22 Freq: Status: Active Protocol: Document 02/03/22 11:10 [facility] (Rec: 02/03/22 14:48 [facility] [id number]) OT-Instrumental Activities of Daily Living Home Safety Awareness Awareness of Need for Assistance at Home Good Awareness Home Safety Comments Pt's parents to be coming to stay and assist with all her needs at this time. M6 OT- IP Functional Cognition Start: 02/03/22 14:22 Freq: Status: Active Protocol: Document 02/03/22 11:10 [facility] (Rec: 02/03/22 14:48 [facility] [id number]) Cognitive Factors Limiting Selfcare Function Cognitive Ability Level of Alertness Alert Patient Orientation Name,Age,Birthday,Month,Date, Year,Day of Week,Place, Situation Attention Span Ability Capable of Focused Attention, Capable of Sustained Attention Ability to Follow Commands Able to Follow One Step Commands Cognitive Comments Cognitive Assessment Comments Pt able to follow commands for ADl and mobility needs. OT- Vision and Hearing OT- Hearing Assessment OT- Hearing Assessment WFL M7 OT- IP Mobility and Balance Start: 02/03/22 14:22 Freq: Status: Active Protocol: Document 02/03/22 11:10 [facility] (Rec: 02/03/22 14:48 [facility] [id number]) OT- Bed Mobility Assessment Sit to Supine Sit to Supine Assist Standby Assistance OT-Transfer Assessment Sit to and From Stand Sit to and from Stand Standby Assistance Transfers Transfer Ability Standby Assistance Technique Transfer Destination Bed,Bedside Commode,Chair Transfer Technique Stand Step Pivot Devices Transfer Assistive Devices Gait Belt,Front Wheeled Walker Comments Mobility Comments SBA for all mobility needs and good follow through with her back precautions. OT- Balance Assessment Sitting Balance and Reactions Static Sitting Balance Ability Normal Dynamic Sitting Balance Ability Good Standing Balance and Reactions Static Standing Balance Ability Good Dynamic Standing Balance Ability Fair M8 OT- IP Objective Assessments Start: 02/03/22 14:22 Freq: Status: Active Protocol: Document 02/03/22 11:10 [facility] (Rec: 02/03/22 14:48 [facility] [id number]) OT-Muscle Tone Assessment Muscle Tone WNL Yes M9 OT- IP Assessment and Plan Start: 02/03/22 14:22 Freq: Status: Active Protocol: Document 02/03/22 11:10 [facility] (Rec: 02/03/22 14:48 [facility] [id number]) OT Summary Assessment and Plan Potential Rehabilitation Potential Good Analytic Complexity at Evaluation Moderate Summary OT Impairments Pain,Balance,Sensation, Functional Mobility Progress Towards Goals Slow Progress due to Pain,Slow Progress due to Medical Issues Assessment Summary Pt MOD complexity and having numbness in her abdominal area , buttock, vaginal and rectal areas and pain. Pt has a supportive family and will benefit from equipment needs of BSC, FWW, airplane pilot crop dusting, sock aid , long handled shoe horn, tub bench, and toilet paper aid. Goals Grooming Goal Independent Dressing Goal Independent Toileting Goal Independent Bathing Goal Independent Toilet Transfer Goal Independent Shower Transfer Goal Independent Days to Meet Goals 10 Frequency of Treatment Frequency Of Treatment Once a Day Treatment Plan OT Treatment Plan ADL Training,Functional Mobility,Patient/Family Education,Discharge Planning Discharge Recommendations OT Discharge Recommendations Home with Assistance Transportation Needs at Discharge Private Vehicle
--- NOTE | 2022-02-03 12:26 | P.PN_ITS ---
Subjective Subjective Date Patient Seen: 02/03/22 Time Patient Seen: 11:40 Interval history: The patient is complaining of persisting, unchanged numbness in her vagina and anus. She does have some pain radiating down her posterior thighs, left worse than right. She is a urinary catheter in place. She has a very slight urge when sitting on the toilet for bowel movement. She notes her last bowel movement was Wednesday. She underwent an emergent microdiskectomy yesterday for acute cauda equina syndrome. Exam Vital Signs (past 8 hours): - 02/03/22 09:33 Temperature 98.8 F Pulse Rate 83 Respiratory Rate 16 Blood Pressure 107/68 Pulse Oximetry 99 Oxygen Flow Rate 0 Oxygen Delivery Method Room Air Oxygen Flow Rate 0 Narrative Exam Narrative: Pleasant 36-year-old female, resting comfortably in her chair, no acute distress. Her is at bedside as well as occupational therapy. Her lumbar dressing is clean, dry, intact. No surrounding erythema or induration. Bilateral lower extremity: Strength is 5/5 with dorsiflexion, plantar flexion. Sensation is intact over the medial and lateral malleoli. Bilateral calves are soft and nontender to palpation. Anal tone is 2/5, patient notes she has some sensation with this, improved from yesterday. Objective Labs Result Diagrams: 02/02/22 12:00 02/02/22 12:00 Labs: Laboratory Results - last 24 hr 02/02/22 02/02/22 02/02/22 12:00 12:00 12:29 PT 12.9 H INR 1.1 Sodium 137 Potassium 3.4 Chloride 102 Carbon Dioxide 23 BUN 20 H Creatinine 0.62 Estimated GFR > 60 BUN/Creatinine Ratio 32.3 H Glucose 90 Calcium 9.0 Total Bilirubin 0.8 AST 24 ALT 18 Alkaline Phosphatase 38 Total Protein 7.4 Albumin 4.1 Globulin 3.3 Albumin/Globulin Ratio 1.2 Lipase 38 SARS-CoV-2 (PCR) Negative [facility] Social History household members: spouse Smoking Status: Never smoker alcohol intake: current Assessment & Plan Post-op Postoperative Procedures: Procedures Operation Date: 02/02/22 12:45 Actual Procedure Side Surgeon p L5-S1 laminectomy/microdiscectomy Not Applicable Bahman Gunter MD Postoperative day: 1 Postoperative status narrative: Slow progress status post L5-S1 laminectomy/micr odiskectomy for acute cauda equina syndrome Postoperative plan narrative: -mobilize with PT/OT. Weightbearing as tolerated with front wheel walker/cane. No bending, lifting, twisting x6 weeks -continue with multimodal pain management -anal tone is improving, 2/5 today with some sensation -encouraged constipation meds and attempting to have a bowel movement. -discontinue urinary catheter today. If she is having continued urinary retention, we will need to replace Gonzales catheter per protocol. -continue with steroids. Upon discharge, send with a Medrol Dosepak. -we will hold on a new lumbar MRI scan without contrast because her anal tone is improving. Continue to monitor -likely disposition home in 1-2 days Quality VTE Deep Vein Thrombosis/Pulmonary Embolism Present on Admission: No
[2022-02-03 12:39] VITALS: BP 116/69; PULSE 76; RESP 16; TEMP 37.6; O2SAT 98
--- NOTE | 2022-02-03 13:20 | CM.DANOTE ---
DCP/Assessment: Reviewed chart. Patient is a 36yr old female admitted for L5-S1 disc herniation. PCP not listed. [place] [facility]. Patient underwent laminectomy and microdiscectomy on 02-02-[address] Gunter. Met with patient and spouse/Michael at bedside at time of visit. Patient reports that at baseline she is completely I with all ADL's. Patient came to the ED because she could not urinate and felt numb in her lower extremities. Patient underwent surgery on 02-02 patient continues to complain of lower extremity numbness but believes that this is related to the anesthesia. Patient reports that her parents will be staying with her upon d/c. Patient resides with her spouse in [place]. At this time it is not anticipated that patient will have any d/c planning needs. Therapy following for ambulation. Patient did not use any DME prior to admit. Patient used walker today for therapy. P: Home when medically stable. CM team to follow closely for any d/c planning needs. KJS Discharge Planning/Care Management CM Discharge Assessment Start: 02/03/22 13:17 Freq: Status: Active Protocol: Document 02/03/22 13:17 [facility] (Rec: 02/03/22 13:20 [facility] [id number]) Discharge Planning Assessment Assigned Veneer Supervisor SANDRA Zarate Contact Information Michael Rodriguez (spouse) # [phone] Advance Directives? No History Provided By Patient,Medical Record Prior Living Arrangements House Household Members spouse Type of transporation used prior to Drives own vehicle admit Independent with ADL's Yes Is patient alert and oriented? Yes Caregiver for Another No Barriers to Discharge No Discharge Plan Home Transportation Arrangement Family to provide transport. Referrals Initiated Other Additional Comment CM team to continue to follow for d/c planning needs. Whiteboard Updated in Patient Room with Yes name and ext. # of Veneer Supervisor Review Status In Process Next Review Type Continued Stay Review Discharge Planning/Care Management CM Discharge Assessment Start: 02/03/22 13:17 Freq: Status: Active Protocol: Document 02/03/22 13:17 KJS (Rec: 02/03/22 13:20 KJS [id number]) Discharge Planning Assessment Assigned Veneer Supervisor SANDRA Zarate Contact Information Michael Rodriguez (spouse) # [phone] Advance Directives? No History Provided By Patient,Medical Record Prior Living Arrangements House Household Members spouse Type of transporation used prior to Drives own vehicle admit Independent with ADL's Yes Is patient alert and oriented? Yes Caregiver for Another No Barriers to Discharge No Discharge Plan Home Transportation Arrangement Family to provide transport. Referrals Initiated Other Additional Comment CM team to continue to follow for d/c planning needs. Whiteboard Updated in Patient Room with Yes name and ext. # of Veneer Supervisor Review Status In Process Next Review Type Continued Stay Review
--- NOTE | 2022-02-03 15:43 | PT.IPTN ---
Current Diagnoses Cauda equina syndrome (02/02/22) Surgery Performed Operation Date: 02/02/22 12:45 Actual Procedures p L5-S1 laminectomy/microdiscectomy(Not Applicable) - Bahman Gunter MD Physical Therapy Treatment Note M2 PT-IP Current Condition Start: 02/03/22 11:08 Freq: NEEDED Status: Active Protocol: Document 02/03/22 10:15 DLM (Rec: 02/03/22 11:24 DLM [id number]) Physical Therapy Current Condition Current Condition Evaluation Date 02/03/22 Treatment Diagnosis L5-S1 microsurgery, laminectomy/discectomy, impaired mobility/gait Onset Date 02/02/22 M3 PT-IP Subjective Start: 02/03/22 11:08 Freq: NEEDED Status: Active Protocol: Document 02/03/22 15:43 DLM (Rec: 02/03/22 15:56 DLM [id number]) Subjective Physical Therapy Visit Type Type Treatment Note Visit Start Time 15:16 Visit Stop Time 15:43 Total Visit Minutes 27 Number of SOFTWARE ENGINEER KERNEL Visits 0 Physical Therapy Visit Comments Patient Comments She is having pressure in lower abdomen this afternoon. Catheter has been out about 1. 5 hours. She reports improved sensation in rectum. Patient Goals Discharge home with family support Therapy Pain Assessment Pain When Pain Assessed After Treatment Pain Present Pain Present Pain Reported Location Lower Back Intensity 4 Scale Used Numeric (0 - 10) Description Aching,Radiating,Tender,With Movement Pain Behaviors Guarding Pain Management Techniques Re-positioning,Timing of Activity with Medications M4 PT-IP Mobility and Gait Start: 02/03/22 11:08 Freq: NEEDED Status: Active Protocol: Document 02/03/22 15:43 DLM (Rec: 02/03/22 15:56 DLM [id number]) PT-Bed Mobility Assessment Rolling Type of Rolling Log Rolling Level of Assist Standby Assistance Supine to Sit Supine to Sit Standby Assistance,Bedrails Scooting Scooting to Edge of Bed Independent PT-Transfer Assessment Sit to and From Stand Sit to and from Stand Standby Assistance,Use of Upper Extremities Equipment Transfer Assistive Device Gait Belt Transfers Transfer Destination Chair,Toilet Transfer Technique Stand Step Pivot Transfer Ability Level of Assist Standby Assistance,Use of Upper Extremities Comments Mobility Comments Pt up to toilet but unable to void. She sat up in recliner after gait this visit. Gait Assessment Gait Gait Assistance Required: Standby Assistance Distance (Feet) 300 Able to Maintain Weight Bearing Status Yes During Gait Assistive Devices Assistive Device Gait Belt Factors Limiting Gait Function Factors Limiting Gait Function Decreased Activity Tolerance, Decreased Sensation,Pain Comments Gait Comments Pt reports feeling steadier this afternoon and requesting to ambulate without a device. She demonstrates an improved gait pattern this treatment, no LOB, moderate guarding. Stair Climbing Assessment Evaluation Level of Assist On Stairs Standby Assistance Devices Stair Climbing Assistive Devices Left Railing,Right Railing Technique/Endurance Stair Climbing Direction Ascend and Descend Stair Climbing Technique Step Over Step,Step to Step Number of Steps Climbed 3 Stair Climbing Set # Repetitions (reps) 4 Comments Stair Climbing Comments she trialed gait options on steps to manage her pain, she was able to progress to one rail and hand on wall opposite side with safe technique, she reports feeling more unsteady going down than up and stays with a step-to pattern going down. PT-Balance Assessment Sitting Balance and Reactions Static Sitting Balance Ability Normal Dynamic Sitting Balance Ability Normal Standing Balance and Reactions Static Standing Balance Ability Good Dynamic Standing Balance Ability Good Device Used none M5 PT-IP Objective Assessments Start: 02/03/22 11:08 Freq: NEEDED Status: Active Protocol: Document 02/03/22 10:15 DLM (Rec: 02/03/22 11:24 DL [id number]) Orientation Orientation/Cognition Level of Alertness Alert Orientation Name,Age,Birthday,Month,Date, Year,Day of Week,Place, Situation Language Function Ability No Deficits Noted Safety Awareness Understands Safety Issues Memory Description No Deficits Noted Comments she reports she is worried about ongoing sensory changes Gross Range of Motion Upper Extremity ROM Assessment Within Functional Limits Lower Extremity ROM Assessment Within Functional Limits Strength Upper Extremity Strength Assessment Within Functional Limits Lower Extremity Strength Assessment Within Functional Limits Comments Strength Comments back pain limits functional core strength post-op Coordination Assessment Gross Coordination Gross Coordination WNL Sensation Assessment Sensation Gross Sensation Left LE Impaired Sensation Description Paresthesia,Numbness,Pins & [place] Comments Sensation Comments saddle area, buttocks and into left post thigh area Muscle Tone Muscle Tone WNL Yes M6 PT-IP Treatment Start: 02/03/22 11:08 Freq: NEEDED Status: Active Protocol: Document 02/03/22 15:43 DLM (Rec: 02/03/22 15:56 DL [id number]) Physical Therapy Treatment Education Education Provided Precautions,Safety Other Treatments Other Treatment Performed no family present during therapy M7 PT-IP Assessment and Plan Start: 02/03/22 11:08 Freq: NEEDED Status: Active Protocol: Document 02/03/22 15:43 DLM (Rec: 02/03/22 15:56 DLM [id number]) PT Summary Assessment and Plan Summary Impairments Pain,ROM,Strength,Balance, Sensation,Bed Mobility, Transfers,Gait,Activity Tolerance Progress Towards Goals Progressing Toward Goals Assessment Summary Maddison is resting in bed at the start of this visit. She tolerated gait in the [facility]. She was able to go up and down stairs with good tolerance. She reports having good family support for discharge home. She is complaining of lower abdominal pressure during this visit and has not voided since removal of her yanez catheter. Pt stayed up in the recliner after ambulating. She appears safe to discharge home when medically cleared. She does not appear to need an assistive device for gait at this time so updated her goals . Goals Bed Mobility Goal Independent Transfer Goal Independent Gait Goal Independent Gait Distance 150 feet Other Goals up and down 2 steps without rail, CG assist Days to Meet Goals 2 Frequency of Treatment Frequency Of Treatment Twice a Day Treatment Plan Physical Therapy Treatment Plan Bed Mobility Training,Transfer Training,Gait Training, Therapeutic Exercise,Balance Retraining,Post Op Education, Discharge Planning,Hot or Cold Pack,Neuromuscular Re-ed Precautions Lumbar Precautions Log Roll,No Twisting,Limit Bending,Lifting Restriction of 10 lbs,Gait Belt above Incisional Area Other Precautions monitor bowel and bladder function Recommendations To Nursing Amount of Assist Needed Standby Assistance Discharge Recommendations PT Discharge Recommendations Home with Assistance Other Discharge Recommendations family assist Equipment Needed for Home Before No FWW needed for home Discharge Transportation Needs at Discharge Private Vehicle
[2022-02-03] MEDS: PROPYLTHIOURACIL 50 MG 0.5 EACH PO (17:39)
[2022-02-03 20:00] VITALS: BP 97/51; PULSE 60; RESP 18; TEMP 36.5; O2SAT 95
[2022-02-03] MEDS: SENNOSIDES 8.6 MG TABLET 17.2 MG PO (20:34)
[2022-02-04] MEDS: DEXAMETHASONE 4 MG/ML VIAL IV ×3 (00:17→11:14)
[2022-02-04] MEDS: ACETAMINOPHEN 325 MG TABLET 650 MG PO ×2 (00:59→08:23)
[2022-02-04 01:37] VITALS: BP 112/65; PULSE 74; RESP 17; TEMP 37; O2SAT 99
[2022-02-04] MEDS: OXYCODONE IR 5 MG TABLET 10 MG PO ×4 (02:29→16:15)
[2022-02-04] MEDS: hydrOXYzine pamoate 25 MG CAPSULE PO ×3 (02:29→13:44)
--- NOTE | 2022-02-04 07:56 | DI.MRI.S_ITS ---
PROCEDURE: MR LUMBAR SPINE WO CON INDICATIONS: rule out spinal stenosis, s/p surgery for cauda equina syndr TECHNIQUE: Noncontrast sagittal T1 spin echo and T2 fast echo, sagittal STIR, and T2 fast spin echo through the lumbar spine. In cases with scoliosis, additional coronal T2 fast spin echo may be performed. COMPARISON: [facility], MR, MR LUMBAR SPINE WO CON, 02/01/2022, 11:44. FINDINGS: Image quality: Excellent. Alignment and Curvature: There is normal bony alignment. Bone Marrow: Marrow is of normal overall signal. No acute vertebral body compression fractures. Spinal Cord: Conus medullaris terminates at the L1-L2 level. Visualized cord demonstrates normal signal and size. Paraspinous Soft Tissues: No paravertebral masses. T10-T11: No canal stenosis or foraminal stenosis. T11-T12: No canal stenosis or foraminal stenosis. T12-L1: No canal stenosis or foraminal stenosis. L1-L2: No canal stenosis or foraminal stenosis. L2-L3: No canal stenosis or foraminal stenosis. L3-L4: Facet hypertrophy. No canal stenosis or foraminal stenosis. L4-L5: Annulus tear plus disc bulge. Facet hypertrophy. Mild canal stenosis. No foraminal stenosis. L5-S1: Expected immediate postoperative appearance, status post left hemilaminectomy and removal of a large disc extrusion. There is residual disc bulge, an expected postsurgical finding. The disc bulges broad-based and does mildly impinge on the S1 nerve roots in the lateral recesses. IMPRESSION: 1. Significant interval improvement with expected immediate postoperative appearance, status post removal of extruded disc material at L5-S1. There is residual disc bulge, which is broad-based, and somewhat impinges on the S1 nerve roots in the lateral recesses. Dictated by: Jose Caal M.D. on 02/04/2022 at 10:40 Approved by: Jose Caal M.D. on 02/04/2022 at 10:47
--- NOTE | 2022-02-04 07:58 | P.PN_ITS ---
Exam Vital Signs (past 8 hours): - 02/04/22 01:37 Temperature 98.6 F Pulse Rate 74 Respiratory Rate 17 Blood Pressure 112/65 Pulse Oximetry 99 Oxygen Flow Rate 0 Oxygen Delivery Method Room Air Oxygen Flow Rate 0 Objective Labs Result Diagrams: 02/02/22 12:00 02/02/22 12:00 [facility] Social History household members: spouse Smoking Status: Never smoker alcohol intake: current Assessment & Plan Assessment & Plan narrative: POD#2 s/p Lumbar laminectomy and discectomy for cauda equina syndrome. Patient has improved perianal sensation and ability to control her sphincter muscle since surgery. Patient still has altered sensation to her perineal/vaginal region. Motor exam is unchanged, able to ambulate. Patient had uriniary retention last PM with catheter reinserted. Will obtain urgent MRI to re-evaluate post decompression surgery now. WIll keep patient NPO until MRI is done in case additional surgical treatment is necessary. Time Spent With Patient Critical Care time: I spent a total of [] minutes of critical care time on this patient's care today; this time is exclusive of procedural time. Quality VTE Deep Vein Thrombosis/Pulmonary Embolism Present on Admission: No
[2022-02-04 08:00] VITALS: BP 105/64; PULSE 83; RESP 16; TEMP 36.3; O2SAT 97
[2022-02-04] MEDS: PROPYLTHIOURACIL 50 MG 0.5 EACH PO ×2 (08:18→16:15)
[2022-02-04] MEDS: DOCUSATE 100 MG CAPSULE PO (08:18)
--- NOTE | 2022-02-04 09:15 | OT.IP.TRT ---
Current Diagnoses Cauda equina syndrome (02/02/22) Surgery Performed Operation Date: 02/02/22 12:45 Actual Procedures p L5-S1 laminectomy/microdiscectomy(Not Applicable) - Bahman Gunter MD Occupational Therapy Treatment Note M2 OT-IP Current Condition Start: 02/03/22 14:22 Freq: Status: Active Protocol: Document 02/03/22 11:10 [facility] (Rec: 02/03/22 14:48 [facility] [id number]) Occupational Therapy Current Condition Current Condition Evaluation Date 02/03/22 Treatment Diagnosis S/p L5-S1 laminectomy and microdis Diagnosis Onset Date 02/02/22 M3 OT- IP Subjective and Pain Start: 02/03/22 14:22 Freq: Status: Active Protocol: Document 02/04/22 09:15 [facility] (Rec: 02/04/22 12:51 [facility] [id number]) OT- Subjective Occupational Therapy Visit Type Type Treatment Note Visit Start Time 09:07 Visit Stop Time 09:15 Total Visit Minutes 8 Occupational Therapy Visit Comments Patient Comments Pt not wanting to shower at this time and hoping may be able to go home. Patient/Caregiver Goals TO go home. OT Pain Assessment Pain When Pain Assessed During Mobility Pain Present Pain Present Pain Reported M4 OT- IP ADL's Start: 02/03/22 14:22 Freq: Status: Active Protocol: Document 02/04/22 09:15 [facility] (Rec: 02/04/22 12:51 [facility] [id number]) OT [id number] General Evaluation Self-Feeding Ability Independent OT ADL-Toileting Comments OT Toileting Comments Pt's able to bulk picker LB dressing equipment of gate cutter, bsc, FWW , and tub bench for the pt yesterday. OT ADL-Bathing Comments OT Bathing Comments Spoke to pt best to cover her dressing with plastic and tape and have her assist to help wash her back while use of the tub bench. Pt looking to shower at home if going home today. M5 OT- IP IADL's Start: 02/03/22 14:22 Freq: Status: Active Protocol: Document 02/03/22 11:10 [facility] (Rec: 02/03/22 14:48 [facility] [id number]) OT-Instrumental Activities of Daily Living Home Safety Awareness Awareness of Need for Assistance at Home Good Awareness Home Safety Comments Pt's parents to be coming to stay and assist with all her needs at this time. M6 OT- IP Functional Cognition Start: 02/03/22 14:22 Freq: Status: Active Protocol: Document 02/03/22 11:10 [facility] (Rec: 02/03/22 14:48 [facility] [id number]) Cognitive Factors Limiting Selfcare Function Cognitive Ability Level of Alertness Alert Patient Orientation Name,Age,Birthday,Month,Date, Year,Day of Week,Place, Situation Attention Span Ability Capable of Focused Attention, Capable of Sustained Attention Ability to Follow Commands Able to Follow One Step Commands Cognitive Comments Cognitive Assessment Comments Pt able to follow commands for ADl and mobility needs. OT- Vision and Hearing OT- Hearing Assessment OT- Hearing Assessment WFL OT- Balance Assessment Sitting Balance and Reactions Static Sitting Balance Ability Normal Dynamic Sitting Balance Ability Good Standing Balance and Reactions Static Standing Balance Ability Good Dynamic Standing Balance Ability Fair M8 OT- IP Objective Assessments Start: 02/03/22 14:22 Freq: Status: Active Protocol: Document 02/03/22 11:10 [facility] (Rec: 02/03/22 14:48 [facility] [id number]) OT-Muscle Tone Assessment Muscle Tone WNL Yes M9 OT- IP Assessment and Plan Start: 02/03/22 14:22 Freq: Status: Active Protocol: Document 02/04/22 09:15 [facility] (Rec: 02/04/22 12:51 [facility] [id number]) OT Summary Assessment and Plan Potential Rehabilitation Potential Good Analytic Complexity at Evaluation Moderate Summary OT Impairments Pain,Balance,Sensation, Functional Mobility Progress Towards Goals Progressing Toward Goals,Slow Progress due to Medical Issues Assessment Summary Pt still unable to urinate at this time. Pt and her have good understanding for all ADl and mobility needs. Pt looking to go home when medically stable. Goals Grooming Goal Independent Dressing Goal Independent Toileting Goal Independent Bathing Goal Independent Toilet Transfer Goal Independent Shower Transfer Goal Independent Days to Meet Goals 9 Frequency of Treatment Frequency Of Treatment Once a Day Treatment Plan OT Treatment Plan ADL Training,Functional Mobility,Patient/Family Education,Discharge Planning Discharge Recommendations OT Discharge Recommendations Home with Assistance Transportation Needs at Discharge Private Vehicle
--- NOTE | 2022-02-04 09:28 | PT.IPTN ---
Current Diagnoses Cauda equina syndrome (02/02/22) Surgery Performed Operation Date: 02/02/22 12:45 Actual Procedures p L5-S1 laminectomy/microdiscectomy(Not Applicable) - Bahman Gunter MD Physical Therapy Treatment Note M2 PT-IP Current Condition Start: 02/03/22 11:08 Freq: NEEDED Status: Active Protocol: Document 02/03/22 10:15 DLM (Rec: 02/03/22 11:24 DLM [id number]) Physical Therapy Current Condition Current Condition Evaluation Date 02/03/22 Treatment Diagnosis L5-S1 microsurgery, laminectomy/discectomy, impaired mobility/gait Onset Date 02/02/22 M3 PT-IP Subjective Start: 02/03/22 11:08 Freq: NEEDED Status: Active Protocol: Document 02/04/22 09:15 LJ (Rec: 02/04/22 09:28 LJ [id number]) Subjective Physical Therapy Visit Type Type Treatment Note Visit Start Time 09:14 Visit Stop Time 09:43 Total Visit Minutes 29 Number of SOCIAL SCIENCE PROFESSOR Visits 1 Physical Therapy Visit Comments Patient Comments Pt states she did not get much sleep lat night and is wanting pain med but still wants to get up and walk. Nursing reinserted yanez last night. Patient Goals Discharge home with family support Therapy Pain Assessment Pain When Pain Assessed During Mobility Pain Present Pain Present Pain Reported Location Lower Back Intensity 4 Description Aching,Radiating,Tender,With Movement Pain Management Techniques Re-positioning,Timing of Activity with Medications M4 PT-IP Mobility and Gait Start: 02/03/22 11:08 Freq: NEEDED Status: Active Protocol: Document 02/04/22 09:15 [facility] (Rec: 02/04/22 09:28 LJ [id number]) PT-Bed Mobility Assessment Rolling Type of Rolling Log Rolling Level of Assist Standby Assistance Supine to Sit Supine to Sit Standby Assistance,Bedrails Scooting Scooting to Edge of Bed Independent PT-Transfer Assessment Sit to and From Stand Sit to and from Stand Standby Assistance,Use of Upper Extremities Equipment Transfer Assistive Device Gait Belt,Front Wheeled Walker Transfers Transfer Destination Bed Transfer Ability Level of Assist Standby Assistance,Use of Upper Extremities Comments Mobility Comments Pt able to perform bed mobility and transfers SBA. Able to return to bed without using rails. Gait Assessment Gait Gait Assistance Required: Standby Assistance Distance (Feet) 400 Able to Maintain Weight Bearing Status Yes During Gait Assistive Devices Assistive Device Gait Belt,Front Wheeled Walker Factors Limiting Gait Function Factors Limiting Gait Function Decreased Activity Tolerance, Decreased Sensation,Pain Comments Gait Comments pt demonstrates good use of FWW taking small steps and keeping herself within the frame. She only anted to use the FWW due to feeling so tired and having pain. Minimal UE support. M5 PT-IP Objective Assessments Start: 02/03/22 11:08 Freq: NEEDED Status: Active Protocol: Document 02/03/22 10:15 DLM (Rec: 02/03/22 11:24 DLM [id number]) Orientation Orientation/Cognition Level of Alertness Alert Orientation Name,Age,Birthday,Month,Date, Year,Day of Week,Place, Situation Language Function Ability No Deficits Noted Safety Awareness Understands Safety Issues Memory Description No Deficits Noted Comments she reports she is worried about ongoing sensory changes Gross Range of Motion Upper Extremity ROM Assessment Within Functional Limits Lower Extremity ROM Assessment Within Functional Limits Strength Upper Extremity Strength Assessment Within Functional Limits Lower Extremity Strength Assessment Within Functional Limits Comments Strength Comments back pain limits functional core strength post-op Coordination Assessment Gross Coordination Gross Coordination WNL Sensation Assessment Sensation Gross Sensation Left LE Impaired Sensation Description Paresthesia,Numbness,Pins & [place] Comments Sensation Comments saddle area, buttocks and into left post thigh area Muscle Tone Muscle Tone WNL Yes M6 PT-IP Treatment Start: 02/03/22 11:08 Freq: NEEDED Status: Active Protocol: Document 02/04/22 09:15 [facility] (Rec: 02/04/22 09:28 [id number]) Physical Therapy Treatment Education Education Provided Precautions,Safety Other Treatments Other Treatment Performed no family present during therapy M7 PT-IP Assessment and Plan Start: 02/03/22 11:08 Freq: NEEDED Status: Active Protocol: Document 02/04/22 09:15 LJ (Rec: 02/04/22 09:28 LJ [id number]) PT Summary Assessment and Plan Potential Rehabilitation Potential Excellent Status of Condition at Evaluation Evolving Summary Impairments Pain,ROM,Strength,Balance, Sensation,Bed Mobility, Transfers,Gait,Activity Tolerance Progress Towards Goals Progressing Toward Goals Assessment Summary Pt in bed prior to therapy session. Did well with slow gait with FWW in hallway. No LOB. She feels she would be stable enough to walk without walker but wanted to use as a procaution due to fatigue and pain. She will try to ambulate without FWW this afternoon after hopefully getting some sleep. Goals Bed Mobility Goal Independent Transfer Goal Independent Gait Goal Independent Gait Distance 150 feet Other Goals up and down 2 steps without rail, CG assist Days to Meet Goals 2 Frequency of Treatment Frequency Of Treatment Twice a Day Treatment Plan Physical Therapy Treatment Plan Bed Mobility Training,Transfer Training,Gait Training, Therapeutic Exercise,Balance Retraining,Post Op Education, Discharge Planning,Hot or Cold Pack,Neuromuscular Re-ed Precautions Lumbar Precautions Log Roll,No Twisting,Limit Bending,Lifting Restriction of 10 lbs,Gait Belt above Incisional Area Other Precautions monitor bowel and bladder function Recommendations To Nursing Amount of Assist Needed Standby Assistance Discharge Recommendations PT Discharge Recommendations Home with Assistance Other Discharge Recommendations family assist Equipment Needed for Home Before No FWW needed for home Discharge Transportation Needs at Discharge Private Vehicle [id number]
[2022-02-04] MEDS: PROPYLTHIOURACIL 50 MG 1 EACH PO (11:14)
[2022-02-04 12:11] VITALS: BP 115/69; PULSE 60; RESP 15; TEMP 37.3; O2SAT 97
[2022-02-04] MEDS: GABAPENTIN 300 MG CAPSULE PO (13:44)
--- NOTE | 2022-02-04 15:01 | PM.PN.1 ---
Exam Vital Signs (past 8 hours): - 02/04/22 08:00 02/04/22 12:11 Temperature 97.3 F L 99.1 F Pulse Rate 83 60 Respiratory Rate 16 15 Blood Pressure 105/64 115/69 Pulse Oximetry 97 97 Oxygen Flow Rate 0 0 Oxygen Delivery Method Room Air Oxygen Flow Rate 0 Objective Labs Result Diagrams: 02/02/22 12:00 02/02/22 12:00 [facility] Social History household members: spouse Smoking Status: Never smoker alcohol intake: current Assessment & Plan Assessment & Plan narrative: MRI was reviewed and it showed well decompressed spine without radiographic evidence of cauda equina compression. There is no indication for additonal surgery treatment at this time. I resumed patient's regular diet. Patient can continue PT/OT and plan for possible discharge. Will discharge with oral steroids. Time Spent With Patient Critical Care time: I spent a total of [] minutes of critical care time on this patient's care today; this time is exclusive of procedural time. Quality VTE Deep Vein Thrombosis/Pulmonary Embolism Present on Admission: No
--- NOTE | 2022-02-04 15:25 | PM.PN.1 ---
Exam Vital Signs (past 8 hours): - 02/04/22 08:00 02/04/22 12:11 Temperature 97.3 F L 99.1 F Pulse Rate 83 60 Respiratory Rate 16 15 Blood Pressure 105/64 115/69 Pulse Oximetry 97 97 Oxygen Flow Rate 0 0 Oxygen Delivery Method Room Air Oxygen Flow Rate 0 Objective Labs Result Diagrams: 02/02/22 12:00 02/02/22 12:00 [facility] Social History household members: spouse Smoking Status: Never smoker alcohol intake: current Assessment & Plan Assessment & Plan narrative: I discussed with patient and her my assessment of her current status and the new MRI findings. She is well decompressed and with no indication for additional surgery at this time. Patient is still experiencing urinary retention and has yanez catheter in place. I discussed with patient options for keeping catheter in for a few days versus self cath. Patient's mother has experience with self cath which would be helpful if she does start to self cath at home. I will plan for discharging patient with catheter in place since she is still experiencing retention. Patient will be given additional instructions next week for her follow up and care. Patient's and patient understand and agrees to the plan. I will discharge patient to home today. Time Spent With Patient Critical Care time: I spent a total of [] minutes of critical care time on this patient's care today; this time is exclusive of procedural time. Quality VTE Deep Vein Thrombosis/Pulmonary Embolism Present on Admission: No
--- NOTE | 2022-02-04 15:58 | P.DS_ITS ---
History of Present Illness History of Present Illness Chief complaint: Acute cauda equina, s/p microdiskectomy Narrative: Please see prior HPI and exam from today Discharge Providers Provider Date of admission: 02/02/22 12:34 Discharge Date: 02/04/22 Consults: 02/02/22 16:08 Consult to Occupational Therapy Evaluate & Treat Comment: Physician Instructions: Evaluate and treat Consult to Physical Therapy Evaluate & Treat Comment: Physician Instructions: Evaluate and Treat Discharge provider: Tiny Villanueva PA-C Summary Hospital Course Discharge Diagnosis: 1. L5-S1 disc herniation 2. Spinal stenosis 3. Cauda equina syndrome Hospital Course: Operative Date/Time/Diagnoses Date of procedure: 02/02/22 Time of procedure: 13:30 Procedure & Clinicians Procedure: 1. L5-S1 bilateral laminectomy and microdiscectomy 2. Utilization of microsurgical technique and operating microscope Same procedure as scheduled: Yes Indications: Ms. Badillo presented to ER today for worsening symptoms consistent with cauda equina syndrome due to a large L5-S1 disc herniation. She has urinary retention and loss of rectal tone along with saddle parathesia consistent with cauda equina syndrome. She was consented risks and benefits of surgery and taken to the OR emergently for surgical decompression. Surgeon: Bahman Gunter Bioinformatics Analyst: Tiny Villanueva Click Yes if Unassisted: No Anesthesia Type: General Operative Notes Closure Type: primary Specimen(s): none sent Applied: catheter Estimated Blood Loss (mL): 10 Blood products transfused: none Status at Discharge Cognitive/behavioral status at discharge: at baseline, oriented Functional status at discharge: uses cane/walker Overall status at discharge: patient is progressing back to baseline Exam Vital Signs (past 8 hours): - 02/04/22 08:00 02/04/22 12:11 Temperature 97.3 F L 99.1 F Pulse Rate 83 60 Respiratory Rate 16 15 Blood Pressure 105/64 115/69 Pulse Oximetry 97 97 Oxygen Flow Rate 0 0 Oxygen Delivery Method Room Air Oxygen Flow Rate 0 Objective Labs Result Diagrams: 02/02/22 12:00 02/02/22 12:00 [facility] Social History household members: spouse Smoking Status: Never smoker alcohol intake: current Discharge Assessment & Plan Assessment and Plan Assessment: Stable status post L5-S1 microdiskectomy for acute cauda equina Plan of Treatment: -mobilize with PT/OT. Limit bending, lifting, twisting x6 weeks. Weightbearing as tolerated with front wheel walker or cane -continue with multimodal pain management -continue with constipation medications -Gonzales catheter in place due to urinary retention from acute cauda equina -DC home today once cleared by PT/OT Discharge Plan Discharge Plan Patient Disposition: Home Discharge orders & Medications Prescriptions: New hydroxyzine pamoate [Vistaril] 25 mg capsule 25 mg PO TID PRN (Reason: spasms) Qty: 30 0RF methylprednisolone 4 mg tablets,dose pack 4 mg PO DAILY Qty: 21 0RF Rx Instructions: Take pack per instruction. acetaminophen 500 mg capsule 500 mg PO Q4H MDD Max 3000 mg per day PRN (Reason: Pain, Mild (1-3)) Qty: 90 0RF docusate sodium 100 mg Capsule 100 mg PO BID PRN (Reason: constipation) Qty: 30 0RF oxycodone 5 mg Tablet See Rx Instructions .ROUTE .COMPLEX PRN (Reason: Pain, Moderate (4-6)) Qty: 42 0RF Rx Instructions: Take 1-2 tablets by mouth every 4-6 hours as needed for moderate to severe pain polyethylene glycol 3350 [Miralax] 17 gram/dose powder 17 g PO .1-3 times daily PRN (Reason: constipation) Qty: 119 0RF Continued cyclobenzaprine 10 mg tablet 10 mg PO TID PRN (Reason: muscle spasm) Qty: 14 0RF ketorolac 10 mg tablet 10 mg PO Q6H PRN (Reason: pain) Qty: 14 0RF gabapentin 300 mg capsule 300 mg PO BEDTIME Qty: 14 0RF methylprednisolone [Medrol (Bear)] 4 mg tablets,dose pack See Rx Instructions .ROUTE .COMPLEX Qty: 21 0RF Rx Instructions: orally per package directions propylthiouracil 50 mg tablet See Rx Instructions .ROUTE .COMPLEX Rx Instructions: TID: 25 mg PO in AM, 50 mg PO at noon, and 25 mg PO in evening Follow up/Referrals: Bahman Gunter MD [Physician] - (10-14 days for postoperative visit, please call office to schedule) Miscellaneous,DoctorMD [Non-Staff] - Diet/Activity/Treatments Diet: Diet as Tolerated Other treatments: Medications: -OTC Tylenol 500 mg 1 tablet every 4 hours as needed for pain/fever. Max 6 tablets per day. -Medrol Dosepak, take as instructed for inflammation -Oxycodone 5 mg take 1-2 tablets every 4 hours as needed for moderate-severe pain (narcotic pain medication). -As needed medications: -Ducolax and /or MiraLax as needed for constipation from narcotic pain medications. -Pepcid AC as needed for stomach upset. -Vistaril (hydroxyine) 25mg 1 tab every 4 hours as needed for spasms/pain/nausea. Dressing/Wound care: -Keep dressing in place until postoperative follow-up office visit. -Okay to shower. Keep wound out of direct water stream. Can use PressNSeal plastic wrap to protect from shower stream. No soaking or submerging until all the scabs fall off (approximately 6 weeks). -Please call the office if dressing becomes wet, soiled, or saturated. Activities: -Limit bending, lifting, twisting x6 weeks. No deep bending (more than 90 degrees) or twisting at the waist. No lifting > 20 pounds. -Walk frequently. -Weight-bearing as tolerated. Use front wheeled walker, and progress to cane when safe. -Continue with home exercises as directed by your physical therapist. -Ice your incision as needed for pain/inflammation/swelling. Protect your skin with a folded pillowcase. -Incentive Spirometer (breathing device from hospital): 5-10xs every hour while awake for the first 1-2 weeks. Follow-up: -Follow-up with your surgeon or PA in the office in 10-14 days after surgery. -Follow-up with your surgeon 6 weeks postoperatively. Call the office if you have chest pain, shortness of breath, significant swelling that will not resolve with elevating, fever over 101?, significantly worsening pain, or are concerned you might need to go to the Emergency Room. [facility]: [phone] Skin/Wound/Dressing Care Report to your healthcare provider any signs of infection, such as:: chills, f ever, night sweats, unusual drainage and unusual redness Visit Report/Discharge Packet Instructions: DI for Laminectomy, DI for Prescription Opioid Use Stand Alone Forms: Surgery Discharge Discharge Data Attending Provider: Lyric,Dawei Quality VTE Deep Vein Thrombosis/Pulmonary Embolism Present on Admission: No
--- NOTE | 2022-02-04 17:19 | PT.IPTN ---
Current Diagnoses Cauda equina syndrome (02/02/22) Surgery Performed Operation Date: 02/02/22 12:45 Actual Procedures p L5-S1 laminectomy/microdiscectomy(Not Applicable) - Bahman Gunter MD Physical Therapy Treatment Note M2 PT-IP Current Condition Start: 02/03/22 11:08 Freq: NEEDED Status: Active Protocol: Document 02/03/22 10:15 DLM (Rec: 02/03/22 11:24 DLM [id number]) Physical Therapy Current Condition Current Condition Evaluation Date 02/03/22 Treatment Diagnosis L5-S1 microsurgery, laminectomy/discectomy, impaired mobility/gait Onset Date 02/02/22 M3 PT-IP Subjective Start: 02/03/22 11:08 Freq: NEEDED Status: Active Protocol: Document 02/04/22 16:50 DCW (Rec: 02/04/22 17:38 DCW [id number]) Subjective Physical Therapy Visit Type Type Treatment Note Visit Start Time 16:50 Visit Stop Time 17:19 Total Visit Minutes 29 Number of CODING QUALITY ANALYST Visits 0 Physical Therapy Visit Comments Patient Comments Pt admits she is anxious to get home, but also feels like she will be overwhelmed if she has to manage her catheter. Patient Goals Discharge home with family support Therapy Pain Assessment Pain When Pain Assessed During Mobility Pain Present Pain Present Pain Reported Location Lower Back Intensity 3 Description Aching,Radiating,Tender,With Movement Pain Management Techniques Re-positioning,Timing of Activity with Medications M4 PT-IP Mobility and Gait Start: 02/03/22 11:08 Freq: NEEDED Status: Active Protocol: Document 02/04/22 16:50 DCW (Rec: 02/04/22 17:38 DCW [id number]) PT-Bed Mobility Assessment Rolling Type of Rolling Log Rolling Level of Assist Standby Assistance Supine to Sit Supine to Sit Standby Assistance,Bedrails Scooting Scooting to Edge of Bed Independent Gait Assessment Gait Gait Assistance Required: Standby Assistance Distance (Feet) 400 Able to Maintain Weight Bearing Status Yes During Gait Assistive Devices Assistive Device None,Gait Belt,Front Wheeled Walker Factors Limiting Gait Function Factors Limiting Gait Function Decreased Activity Tolerance, Decreased Sensation,Pain Comments Gait Comments Pt ambulating with small step length, keeping herslef inside FWW well. Reviewed sizing for home FWW. Pt able to ambulate 400' in hallway SBA/I, in addition to ascending/ descending 3 steps x2 L ascending rail [id number] pattern with independent cath management. Pt fatigued but did well overall. Stair Climbing Assessment Evaluation Level of Assist On Stairs Independent,Standby Assistance Devices Stair Climbing Assistive Devices Left Railing Technique/Endurance Stair Climbing Direction Ascend and Descend Stair Climbing Technique Step Over Step Number of Steps Climbed 3 Stair Climbing Set # Repetitions (reps) 2 M5 PT-IP Objective Assessments Start: 02/03/22 11:08 Freq: NEEDED Status: Active Protocol: Document 02/03/22 10:15 DLM (Rec: 02/03/22 11:24 DLM [id number]) Orientation Orientation/Cognition Level of Alertness Alert Orientation Name,Age,Birthday,Month,Date, Year,Day of Week,Place, Situation Language Function Ability No Deficits Noted Safety Awareness Understands Safety Issues Memory Description No Deficits Noted Comments she reports she is worried about ongoing sensory changes Gross Range of Motion Upper Extremity ROM Assessment Within Functional Limits Lower Extremity ROM Assessment Within Functional Limits Strength Upper Extremity Strength Assessment Within Functional Limits Lower Extremity Strength Assessment Within Functional Limits Comments Strength Comments back pain limits functional core strength post-op Coordination Assessment Gross Coordination Gross Coordination WNL Sensation Assessment Sensation Gross Sensation Left LE Impaired Sensation Description Paresthesia,Numbness,[place] Comments Sensation Comments saddle area, buttocks and into left post thigh area Muscle Tone Muscle Tone WNL Yes M6 PT-IP Treatment Start: 02/03/22 11:08 Freq: NEEDED Status: Active Protocol: Document 02/04/22 16:50 DCW (Rec: 02/04/22 17:38 DCW [id number]) Physical Therapy Treatment Education Education Provided Precautions,Safety M7 PT-IP Assessment and Plan Start: 02/03/22 11:08 Freq: NEEDED Status: Active Protocol: Document 02/04/22 16:50 DCW (Rec: 02/04/22 17:38 DCW [id number]) PT Summary Assessment and Plan Summary Impairments Pain,ROM,Strength,Balance, Sensation,Bed Mobility, Transfers,Gait,Activity Tolerance Progress Towards Goals Progressing Toward Goals Assessment Summary Pt in bed prior to therapy session. Noted desire to get up and walk in hallway, as well as practice with the steps more prior to discharge. Some confusion if pt leaving tonight or tomorrow. From PT perspective, pt demonstrates good safety and precaution awareness, likely appropriate for discharge at this time if medically cleared. Pt did well with gait, ambulating 400 ' using FWW with short distance of 15' without an AD, no LOB. Appropriate management of Gonzales cath. Pt additionally demonstrated good ability to ascend/descend stairs. Reviewed log roll and bed mobility, pt left in bed with call pastrana within reach. Goals Bed Mobility Goal Independent Transfer Goal Independent Gait Goal Independent Gait Distance 150 feet Other Goals up and down 2 steps without rail, CG assist Days to Meet Goals 2 Frequency of Treatment Frequency Of Treatment Once a Day Treatment Plan Physical Therapy Treatment Plan Bed Mobility Training,Transfer Training,Gait Training, Therapeutic Exercise,Balance Retraining,Post Op Education, Discharge Planning,Hot or Cold Pack,Neuromuscular Re-ed Precautions Lumbar Precautions Log Roll,No Twisting,Limit Bending,Lifting Restriction of 10 lbs,Gait Belt above Incisional Area Other Precautions monitor bowel and bladder function Recommendations To Nursing Amount of Assist Needed Standby Assistance Discharge Recommendations PT Discharge Recommendations Home with Assistance Other Discharge Recommendations family assist Equipment Needed for Home Before No FWW needed for home Discharge Transportation Needs at Discharge Private Vehicle
== END 2022-02-04 19:24 | disposition home or self-care (01) ==
LOC: ED 12:08 → AC 13:39
PROVIDERS: Admitting Provider Orthopaedic Surgery Orthopaedic Surgery of the Spine; Emergency Provider Emergency Medicine; Referring Provider Emergency Medicine; Visit Provider Orthopaedic Surgery Orthopaedic Surgery of the Spine
PROC: (CPT 63047; principal; 2022-02-02 12:45)
DX: G83.4 Cauda equina syndrome (principal); M48.07 Spinal stenosis, lumbosacral region; M51.27 Other intervertebral disc displacement, lumbosacral region; K59.9 Functional intestinal disorder, unspecified; Z20.822 Contact with and (suspected) exposure to COVID-19
CPT/HCPCS: 63047; 72100; 72148; 76000; 80053; 81003; 81025; 83690; 85025; 85610; 87635; 96361; 96365; 96372; 96375; 96376; 97116; 97162; 97166; 97530; 97535; 99284; 99285; C9803; G0378; J0690; J1100; J1170; J2250; J2270; J2920; J3010

== ENCOUNTER 2022-02-10 07:27 | Emergency (ER) | payer OTHER, SELFPAY ==
[2022-02-02 16:13] VITALS: BMI 29.7
[2022-02-10 07:31] VITALS: PULSE 96; O2SAT 95
[2022-02-10 07:32] VITALS: BP 128/82; PULSE 94; O2SAT 94
[2022-02-10 07:33] VITALS: BP 136/76; PULSE 110; RESP 16; TEMP 36.9; O2SAT 99; BMI 29.7
[2022-02-10 07:37] VITALS: BP 129/82; PULSE 89; RESP 16; O2SAT 100
--- NOTE | 2022-02-10 07:48 | ED_ITS ---
HPI - General Adult General Chief complaint: Abdominal Pain Stated complaint: severe constipation, no bowel movement post surg Time Seen by Provider: 02/10/22 07:31 Source: patient Mode of arrival: Ambulatory Limitations: no limitations History of Present Illness HPI narrative: Patient is a 36-year-old female who approximately 10 days ago underwent a lumbar surgery for cauda equina. She has a urinary catheter in place. She is scheduled to see her orthopedic surgeon later today. She is still having some back pain but is much better than prior to the surgery. She has feeling back in her perineum and also around her rectum. She is passing flatus. No fevers. Is on her menstrual cycle. No vomiting. Is here because she has not had a bowel movement since prior to the surgery. She has tried suppositories and also MiraLax also stool softener without any resolution of her symptoms. Had some abdominal discomfort and distention last evening but that seems to be somewhat better this morning. Related Data Home Medications Medication Instructions Recorded Confirmed propylthiouracil 50 mg tablet See Rx Instructions .Route .COMPLEX 02/03/22 02/03/22 Previous Rx's Medication Instructions Recorded cyclobenzaprine 10 mg tablet 10 mg PO TID PRN muscle spasm #14 02/01/22 tabs gabapentin 300 mg capsule 300 mg PO BEDTIME #14 caps 02/01/22 ketorolac 10 mg tablet 10 mg PO Q6H PRN pain #14 tabs 02/01/22 methylprednisolone 4 mg tablets in See Rx Instructions PO .COMPLEX 02/01/22 a dose pack (Medrol (Bear)) #21 ea acetaminophen 500 mg capsule 500 mg PO Q4H PRN Pain, Mild (1-3) 02/04/22 #90 caps docusate sodium 100 mg capsule 100 mg PO BID PRN constipation #30 02/04/22 caps hydroxyzine pamoate 25 mg capsule 25 mg PO TID PRN spasms #30 caps 02/04/22 (Vistaril) methylprednisolone 4 mg tablets in 4 mg PO DAILY #21 ea 02/04/22 a dose pack oxycodone 5 mg tablet See Rx Instructions .Route 02/04/22 .COMPLEX PRN Pain, Moderate (4-6) #42 tabs polyethylene glycol 3350 17 17 g PO .1-3 times daily PRN 02/04/22 gram/dose oral powder (Miralax) constipation #119 grams Allergies Allergy/AdvReac Type Severity Reaction Status Date / Time No Known Drug Allergies Allergy Verified 02/02/22 10:26 Review of Systems Constitutional Constitutional: Reports system reviewed and no additional complaints, except as documented Cardiovascular Cardiovascular: Reports system reviewed and no additional complaints, except as documented Respiratory Respiratory: Reports system reviewed and no additional complaints, except as documented Gastrointestinal Gastrointestinal: Reports system reviewed and no additional complaints, except as documented Genitourinary Genitourinary: Reports system reviewed and no additional complaints, except as documented Integumentary/Breasts Skin/Breast: Reports system reviewed and no additional complaints, except as documented Neurologic Neurologic: Reports system reviewed and no additional complaints, except as documented Hematologic/Lymphatic On Anticoagulants: No Patient History Medical History Acute left lumbar radiculopathy Acute urinary retention Cauda equina syndrome Gait disturbance Social History household members: spouse Smoking Status: Never smoker alcohol intake: current Smoking Status: Never smoker alcohol intake frequency: holidays/special occasions only Substance Use Type: does not use Exam Initial Vital Signs Initial Vital Signs: Vital Signs Temperature 98.4 F 02/10/22 07:33 Pulse Rate 110 H 02/10/22 07:33 Respiratory Rate 16 02/10/22 07:33 Blood Pressure 136/76 02/10/22 07:33 Pulse Oximetry 99 02/10/22 07:33 Oxygen Delivery Method 02/10/22 07:33 HENME Head: normal to inspection and normocephalic Resp Effort & Inspection: normal respiratory effort Auscultation: clear to auscultation bilaterally Cardio Rate: regular rate Rhythm: regular rhythm GI Inspection: normal to inspection and non-distended Palpation: soft and tender Skin General: no rashes or lesions noted Neuro General: patient alert, patient awake and moves all extremities Extrem General: normal to inspection and capillary refill normal Course Orders Ordered: Discontinued Medications Mineral Oil (Mineral Oil 1 Each Enema) 1 each VA NOW ONE Stop: 02/10/22 07:51 Last Admin: 02/10/22 08:43 Dose: 1 each Documented By: CTS Vital Signs Vital signs: Vital Signs - 8 hr 02/10/22 07:33 02/10/22 07:37 Temperature 98.4 F Pulse Rate 110 H 89 Respiratory Rate 16 16 Blood Pressure 136/76 129/82 Pulse Oximetry 99 100 Oxygen Delivery Method Room Air Room Air Medical Decision Making MDM Narrative Medical decision making narrative: Patient has a soft abdomen. Is still passing flatus. No fevers. No vomiting. She does have sensation around her anus/rectum which is an improvement from prior to the surgery. She is a Gonzales catheter in place. Given her presentation I feel less that this is an obstruction and more likely ileus versus constipation she has not had a bowel movement the past 10 days. Was given an e nema here in the emergency department. Past a very small amount of stool. Patient states she would like to go home and continue the process. We did discuss things that she can try at home to include oral laxatives and also enemas. She is a follow-up this afternoon with the orthopedic surgeon who did her back surgery. She was given return precautions and follow-up instructions. She expressed understanding and agreement. Discharge Plan Departure Patient Disposition: Home Clinical Impression: Constipation Instructions: DI for Constipation Activity Restrictions/Additional Instructions: Continue to take all of your medications as directed and keep all of your scheduled medical appointments. I do recommend that you take laxatives at home like we discussed. Return to the emergency department for any new or worsening symptoms. Prescriptions: No Action cyclobenzaprine 10 mg tablet 10 mg PO TID PRN (Reason: muscle spasm) Qty: 14 0RF ketorolac 10 mg tablet 10 mg PO Q6H PRN (Reason: pain) Qty: 14 0RF gabapentin 300 mg capsule 300 mg PO BEDTIME Qty: 14 0RF methylprednisolone [Medrol (Bear)] 4 mg tablets,dose pack See Rx Instructions .ROUTE .COMPLEX Qty: 21 0RF Rx Instructions: orally per package directions propylthiouracil 50 mg tablet See Rx Instructions .ROUTE .COMPLEX Rx Instructions: TID: 25 mg PO in AM, 50 mg PO at noon, and 25 mg PO in evening hydroxyzine pamoate [Vistaril] 25 mg capsule 25 mg PO TID PRN (Reason: spasms) Qty: 30 0RF methylprednisolone 4 mg tablets,dose pack 4 mg PO DAILY Qty: 21 0RF Rx Instructions: Take pack per instruction. acetaminophen 500 mg capsule 500 mg PO Q4H MDD Max 3000 mg per day PRN (Reason: Pain, Mild (1-3)) Qty: 90 0RF docusate sodium 100 mg Capsule 100 mg PO BID PRN (Reason: constipation) Qty: 30 0RF oxycodone 5 mg Tablet See Rx Instructions .ROUTE .COMPLEX PRN (Reason: Pain, Moderate (4-6)) Qty: 42 0RF Rx Instructions: Take 1-2 tablets by mouth every 4-6 hours as needed for moderate to severe pain polyethylene glycol 3350 [Miralax] 17 gram/dose powder 17 g PO .1-3 times daily PRN (Reason: constipation) Qty: 119 0RF
[2022-02-10 08:00] VITALS: PULSE 91; O2SAT 96
[2022-02-10] MEDS: MINERAL OIL 1 EACH ENEMA PR (08:43)
--- NOTE | 2022-02-10 09:27 | PC.NURSE ---
Pt given mineral oil enema with mild relief. state she was able to pass some stool. Asking to go home to finish the process in private. Dr Fish made aware. Pt asking to have yanez removed. Advised pt to attend her post op visit today and see what Ortho's recommendation is regarding removal. With pt unable to have BM, concern for pt not being able to fully urinate and possibly having urinary retention again. If ordered to remove pt made aware that it should be able to be done at Ortho office, however she is more than welcome to come back to ER for removal. Pt agreeable and ambulated out of ED with parents.
== END 2022-02-10 09:31 | disposition home or self-care (01) ==
PROVIDERS: Emergency Provider Emergency Medicine
DX: R10.9 Unspecified abdominal pain (principal); K59.00 Constipation, unspecified
CPT/HCPCS: 99283; 99284

== ENCOUNTER → 2022-02-17 16:16 | Outpatient (CLI) | payer OTHER, SELFPAY ==
[2022-02-02 16:13] VITALS: BMI 29.7
== END ==
PROVIDERS: PCP Physician Assistant; Visit Provider Specialist
DX: K59.00 Constipation, unspecified (principal)
CPT/HCPCS: 87086

== ENCOUNTER → 2022-09-23 11:58 | Outpatient (CLI) | payer OTHER, SELFPAY ==
[2022-02-02 16:13] VITALS: BMI 29.7
== END ==
PROVIDERS: Family Provider Physician Assistant; PCP Physician Assistant; Referring Provider Obstetrics & Gynecology; Visit Provider Obstetrics & Gynecology
DX: Z34.01 Encounter for supervision of normal first pregnancy, first trimester (principal); E05.90 Thyrotoxicosis, unspecified without thyrotoxic crisis or storm
CPT/HCPCS: 87086

== ENCOUNTER 2022-10-01 08:45 | Outpatient (RCR) | payer OTHER, BC, SELFPAY ==
[2022-02-02 16:13] VITALS: BMI 29.7
--- NOTE | 2022-06-23 17:11 | PT.OIE ---
Current Diagnoses Cauda equina syndrome (06/23/22) Flaccid neuropathic bladder, not elsewhere classified (06/23/22) Retention of urine, unspecified (06/23/22) Past Medical History (Last Reviewed 03/23/22 @ 12:22 by Luis Deng MD) Acute left lumbar radiculopathy Acute urinary retention Cauda equina syndrome Cauda equina syndrome with neurogenic bladder Flaccid bladder Gait disturbance Hx of thyroid disease Urinary retention Past Surgical History (Last Reviewed 03/23/22 @ 12:22 by Luis Deng MD) Hx of laminectomy Visit Care Team Role Provider Type Jeanette Wilhelm PA-C Family Provider Advanced Design Assistant Primary Care Provider Specialty: Medical Address: [address] [place] [address], [id number] Email: Luis Deng MD Attending Provider Physician Referring Provider Specialty: Urology Address: [address] [place] [address], [id number] Email: Physical Therapy Initial Evaluation PT-OP-A Visit Information Start: 06/23/22 09:21 Freq: Status: Active Protocol: Document 06/23/22 10:30 [facility] (Rec: 06/23/22 12:24 [facility] [id number]) Out-Patient Physical Therapy Visit Information Visit Information Visit Type Initial Evaluation Visit Start Time 10:30 Visit Stop Time 11:15 Total Visit Minutes 45 Visit Number 1 Evaluation Information Evaluation Date 06/23/22 PT-OP-B Current Condition Start: 06/23/22 09:21 Freq: Status: Active Protocol: Document 06/23/22 10:30 [facility] (Rec: 06/23/22 12:24 [facility] [id number]) Current Condition History of Current Condition Onset Date January 2022 Current Complaints cauda equina syndrome with urinary retention, neurogenic bladder History of Current Condition 36 year old women who underwent a emergency L5-S1 laminectomy and micro discectomy 02/02/22 due to saddle parathesia and inability to void. She is 3 months s/p surgery and currently she describes paresthesia over the left buttock and left vaginal wall, genitalia, and rectum. She does feel that paresthesia for the left buttock is improving since surgery. She is self- catheterizing to empty her bladder and uses the catheter 6-7 xms per day. She notes 2 weeks ago she was able to start voiding and she finds that if she has more than 500 cc's in her bladder she is able to independently void. She is not able to fully empty her bladder and reports she has a residual 200 cc's left after self voiding. She manages bowel function with softeners and magnesium. She denies c/o urinary leakage or bowel leakage. She reports low back pain as 3 /10 worse on the left side Treatment Goals Patient/Caregiver Goals pt would like pelvic floor assessment and core strengthening to help support both her back and her bladder Prior Functional Status Baseline Function- ADL's Independent Baseline Function- Mobility Independent Current Functional Impairments (Reported) Functional Limitations- Other neurogenic bladder, pt requires self catheterization to fully empty her bladder PT-OP-C Subjective Start: 06/23/22 09:21 Freq: Status: Active Protocol: Document 06/23/22 10:30 [facility] (Rec: 06/23/22 13:33 [facility] [id number]) Patient Questionnaires Pelvic Pain and Urgency/Frequency Patient Symptom Scale Pelvic Pain Score 13 OP-PT Pain Assessment Location Lower Back Pain Location Details left lower back Intensity 3 Scale Used Numeric (0 - 10) PT-OP-F Manual Assessment Start: 06/23/22 09:21 Freq: Status: Active Protocol: Document 06/23/22 10:30 [facility] (Rec: 06/23/22 13:33 [facility] [id number]) Manual Assessments Soft Tissue Assessment Soft Tissue Mobility Assessment with internal pelvic floor assessment there is atrophy of the left wall of the levator ani as compared to the right. No muscle guarding noted PT-OP-I Pelvic Floor Start: 06/23/22 09:21 Freq: Status: Active Protocol: Document 06/23/22 10:30 [facility] (Rec: 06/23/22 13:33 [facility] [id number]) Pelvic Floor Assessment Urine Pelvic Floor Surgery No Urinary Symptoms Incomplete Emptying Other Urinary Symptoms pt has urinary retention due to neurogenic bladder, she uses a catheter to void 6-7 times per day but has been able to void some on her own especially if she uses her abdominals to help give pressure over the bladder Voiding Frequency 7 times per day Bowel Bowel Symptoms Constipation Pelvic Clock Pelvic Clock 12-3 Atrophy Pelvic Clock Other pt has no sensation over the left side of the levator ani or over the external genitalia Inter-Rectal Assessment There is rectal tone present. Pt denies feeling sensation over the left side of the rectum. Pt is able to contract the rectum and palpable contraction is felt both left and right sides of the rectum SEMG (uV) Baseline 3.4 10 Second Contraction 7.3 Recruitment Pattern Fair Relaxation Fair Holding Fair Stability of Hold Fair Contraction Ability Voluntary Contraction Weak Voluntary Relaxation Weak Manual Muscle Testing Left 0 Manual Muscle Testing Right 1 Manual Muscle Testing Anterior 1 Manual Muscle Testing Posterior 2 Muscle Endurance (Seconds) 4 Comments Pelvic Floor Comments there is no palpable contraction on the left lateral wall of the levator ani or on the left side of the anterior levator ani. Pt needed verbal cueing to facilitate right lateral wall pelvic floor PT-OP-M Strength Start: 06/23/22 09:21 Freq: Status: Active Protocol: Document 06/23/22 17:09 [facility] (Rec: 06/23/22 17:10 [facility] [id number]) Trunk Strength Trunk Manual Muscle Testing Testing Position Supine Core Stabilization decreased activation of the transverse abdominal musculature PT-OP-T Assessment and Plan Start: 06/23/22 09:21 Freq: Status: Active Protocol: Document 06/23/22 10:30 [facility] (Rec: 06/23/22 13:43 [facility] [id number]) Physical Therapy Assessment Rehab Potential Rehabilitation Potential Good Evaluation Complexity Number of Personal Factors/Comorbidities 1-2 Number of Body Systems Impaired 1-2 Clinical Presentation at Evaluation Evolving Impairments Impairments Pain,Sensation,Strength,Tone Other Impairments neurogenic bladder Goals 3 Impairment urinary retention with self catheterization 6-7 times per day Senior Living Goal (LTG) pt's retirement goal is to improve her ability to independently empty her bladder and decrease use of the catheter. LTG Duration 8 weeks + 2 Impairment Decreased endurance of the pelvic floor Short Term Goal (STG) pt is able to sustain a pelvic floor contraction in supine x 10 seconds STG Duration 5 weeks Ultrasound Spec Goal (LTG) pt is able to sustain a pelvic floor contraction in standing x 10 seconds LTG Duration 12 weeks 1 Impairment cauda equina syndrome with pelvic floor weakness Ultrasound Spec Goal (LTG) pt is able to strengthen her pelvic floor to improve support to her bladder. LTG Duration 8 weeks Assessment Summary Assessment Maddison is a 36 year old female with cauda equina syndrome and neurogenic bladder. She underwent a urgent bilateral L5-S1 laminectomy and micro discectomy 02/02/22 due to saddle parasthesis, bladder retention along with low back pain. Maddison reports it was approx 18 hours of bladder symptoms prior to her surgery. Her chief complaint at this time is bladder retention and she self-catheterizes 6-7 times per day. Pt reports 2 weeks ago she was able to void without using the catheter but isn't able to fully void. She typically requires above 500cc's of urine in her bladder to be able to independently void. She is using her lower abdominals to assist with voiding. Pt describes paresthesia of her left vagina, rectum, and genitalia. She is noting left buttock paresthesia is improving from what it was prior to surgery. With examination today there is no sensation to touch over the left labia or perineum or left side of the rectum. With internal pelvic floor examination Maddison denies sensation over the left lateral and anterior wall of the pelvic floor. She is able to feel sensation over the rectum and right side of the vaginal wall as well as the anterior right side pelvic floor attachments at the pubic bone. With vaginal pelvic floor MMT she tests a 2 /5 for the posterior wall, 1/5 for the right lateral wall, 1 /5 for right anterior wall, 0/ 5 for left anterior and lateral wall. With rectal assessment Maddison is able to give a strong contraction all the way around the rectum. I started her today with EMG biofeedback for pelvic floor strengthening. She lacks endurance holds of the pelvic floor. She is able to rest to 2.0 uv on EMG biofeedback. Treatment for Maddison will include both lower abdominal as well as pelvic floor strengthening, NMES and EMG biofeedback. Physical Therapy Plan Frequency and Duration Frequency of Treatment 2x/Week Duration of treatment (weeks) 8 Plan of Care Start Date 06/23/22 Plan of Care End Date 08/18/22 Therapeutic Interventions Therapeutic Interventions Home Exercise Program, Neuromuscular Re-education, Patient/Caregiver Education, Self-Care/Home Management, Therapeutic Exercises Modalities Biofeedback,Electric Stimulation Next Visit Focus/Plan Next Note Type Treatment Note Next Visit Plan Continue with pelvic floor strengthening with EMG biofeedback, begin NMES for the pelvic floor next visit and transverse abdominal strengthening.
--- NOTE | 2022-06-23 17:14 | PT.OPPOC ---
Physical, Occupational & Speech Therapy At [facility] Current Diagnoses Cauda equina syndrome (06/23/22) Flaccid neuropathic bladder, not elsewhere classified (06/23/22) Retention of urine, unspecified (06/23/22) Visit Care Team Role Provider Type Jeanette Wilhelm PA-C Family Provider Advanced Dean Of Student Services Primary Care Provider Specialty: Medical Address: [address] [place] [address], [id number] Email: Luis Deng MD Attending Provider Physician Referring Provider Specialty: Urology Address: [address] [place] [address], [address] Email: Plan Of Care PT-OP-T Assessment and Plan Start: 06/23/22 09:21 Freq: Status: Active Protocol: Document 06/23/22 10:30 [facility] (Rec: 06/23/22 13:43 [facility] [id number]) Physical Therapy Assessment Rehab Potential Rehabilitation Potential Good Evaluation Complexity Number of Personal Factors/Comorbidities 1-2 Number of Body Systems Impaired 1-2 Clinical Presentation at Evaluation Evolving Impairments Impairments Pain,Sensation,Strength,Tone Other Impairments neurogenic bladder Goals 3 Impairment urinary retention with self catheterization 6-7 times per day Penitentiary Goal (LTG) pt's [facility]ci goal is to improve her ability to independently empty her bladder and decrease use of the catheter. LTG Duration 8 weeks + 2 Impairment Decreased endurance of the pelvic floor Short Term Goal (STG) pt is able to sustain a pelvic floor contraction in supine x 10 seconds STG Duration 5 weeks Penitentiary Goal (LTG) pt is able to sustain a pelvic floor contraction in standing x 10 seconds LTG Duration 12 weeks 1 Impairment cauda equina syndrome with pelvic floor weakness Medical Coding Technician Goal (LTG) pt is able to strengthen her pelvic floor to improve support to her bladder. LTG Duration 8 weeks Assessment Summary Assessment Maddison is a 36 year old female with cauda equina syndrome and neurogenic bladder. She underwent a urgent bilateral L5-S1 laminectomy and micro discectomy 02/02/22 due to saddle parasthesis, bladder retention along with low back pain. Maddison reports it was approx 18 hours of bladder symptoms prior to her surgery. Her chief complaint at this time is bladder retention and she self-catheterizes 6-7 times per day. Pt reports 2 weeks ago she was able to void without using the catheter but isn't able to fully void. She typically requires above 500cc's of urine in her bladder to be able to independently void. She is using her lower abdominals to assist with voiding. Pt describes paresthesia of her left vagina, rectum, and genitalia. She is noting left buttock paresthesia is improving from what it was prior to surgery. With examination today there is no sensation to touch over the left labia or perineum or left side of the rectum. With internal pelvic floor examination Maddison denies sensation over the left lateral and anterior wall of the pelvic floor. She is able to feel sensation over the rectum and right side of the vaginal wall as well as the anterior right side pelvic floor attachments at the pubic bone. With vaginal pelvic floor MMT she tests a 2 /5 for the posterior wall, 1/5 for the right lateral wall, 1 /5 for right anterior wall, 0/ 5 for left anterior and lateral wall. With rectal assessment Maddison is able to give a strong contraction all the way around the rectum. I started her today with EMG biofeedback for pelvic floor strengthening. She lacks endurance holds of the pelvic floor. She is able to rest to 2.0 uv on EMG biofeedback. Treatment for Maddison will include both lower abdominal as well as pelvic floor strengthening, NMES and EMGbiofeedback. Physical Therapy Plan Frequency and Duration Frequency of Treatment 2x/Week Duration of treatment (weeks) 8 Plan of Care Start Date 06/23/22 Plan of Care End Date 08/18/22 Therapeutic Interventions Therapeutic Interventions Home Exercise Program, Neuromuscular Re-education, Patient/Caregiver Education, Self-Care/Home Management, Therapeutic Exercises Modalities Biofeedback,Electric Stimulation Next Visit Focus/Plan Next Note Type Treatment Note Next Visit Plan Continue with pelvic floor strengthening with EMG biofeedback, begin NMES for the pelvic floor next visit and transverse abdominal strengthening. Plan of Care Dates Plan of Care Start Date 06/23/22 Plan of Care End Date 08/18/22 Electronically Signed by: Adriane Dickerson, PT 06/23/22 2401 If you are in agreement with this Plan of Care, please return a signed and dated copy. I have reviewed this Plan of Care and certify that the skilled therapy services above are required to meet the patient?s needs. Physician Signature Date Printed Name and Credentials Clinical Instructor Signature Printed Name and Credentials
--- NOTE | 2022-06-25 17:27 | PT.OTN ---
Current Diagnoses Cauda equina syndrome (06/25/22) Flaccid neuropathic bladder, not elsewhere classified (06/25/22) Retention of urine, unspecified (06/25/22) Physical Therapy Treatment Note PT-OP-A Visit Information Start: 06/23/22 09:21 Freq: Status: Active Protocol: Document 06/25/22 13:00 [facility] (Rec: 06/25/22 13:40 [facility] [id number]) Out-Patient Physical Therapy Visit Information Visit Information Visit Type Treatment Note Visit Start Time 13:00 Visit Stop Time 13:45 Total Visit Minutes 45 Visit Number 2 PT-OP-B Current Condition Start: 06/23/22 09:21 Freq: Status: Active Protocol: Document 06/23/22 10:30 [facility] (Rec: 06/23/22 12:24 [facility] [id number]) Current Condition History of Current Condition Onset Date January 2022 Current Complaints cauda equina syndrome with urinary retention, neurogenic bladder History of Current Condition 36 year old women who underwent a emergency L5-S1 laminectomy and microdiskectomy 02/02/22 due to saddle parathesia and inability to void. She is 3 months s/p surgery and currently she describes paresthesia over the left buttock and left vaginal wall, genitalia, and rectum. She does feel that paresthesia for the left buttock is improving since surgery. She is self- catheterizing to empty her bladder and uses the catheter 6-7 xms per day. She notes 2 weeks ago she was able to start voiding and she finds that if she has more than 500 cc's in her bladder she is able to independently void. She is not able to fully empty her bladder and reports she has a residual 200 cc's left after self voiding. She manages bowel function with softeners and magnesium. She denies c/o urinary leakage or bowel leakage. She reports low back pain as 3 /10 worse on the left side Treatment Goals Patient/Caregiver Goals pt would like pelvic floor assessment and core strengthening to help support both her back and her bladder Prior Functional Status Baseline Function- ADL's Independent Baseline Function- Mobility Independent Current Functional Impairments (Reported) Functional Limitations- Other neurogenic bladder, pt requires self catheterization to fully empty her bladder PT-OP-C Subjective Start: 06/23/22 09:21 Freq: Status: Active Protocol: Document 06/25/22 13:00 [facility] (Rec: 06/25/22 13:40 [facility] [id number]) OP-PT Subjective Patient Comments Patient Comments pt reports she was able to fully empty her bladder , there was approx 50 cc left. IF her bladder bladder is 500 cc or higher she can get more out. Maddison does report she did have a year of urinary ugency prior to her lumbar surgery. Now 1-2 time sper week she gets sensations that she needs to void and have a bowel movement even though she knows she does not need to PT-OP-F Manual Assessment Start: 06/23/22 09:21 Freq: Status: Active Protocol: Document 06/23/22 10:30 [facility] (Rec: 06/23/22 13:33 [facility] [id number]) Manual Assessments Soft Tissue Assessment Soft Tissue Mobility Assessment with internal pelvic floor assessment there is atrophy of the left wall of the levator ani as compared to the right. No muscle guarding noted PT-OP-I Pelvic Floor Start: 06/23/22 09:21 Freq: Status: Active Protocol: Document 06/25/22 13:00 [facility] (Rec: 06/25/22 13:40 [facility] [id number]) Pelvic Floor Assessment SEMG (uV) 10 Second Contraction 7.1 PT-OP-M Strength Start: 06/23/22 09:21 Freq: Status: Active Protocol: Document 06/23/22 17:09 [facility] (Rec: 06/23/22 17:10 [facility] [id number]) Trunk Strength Trunk Manual Muscle Testing Testing Position Supine Core Stabilization decreased activation of the transverse abdominal musculature PT-OP-Q Treatments Start: 06/23/22 17:16 Freq: Status: Active Protocol: Document 06/25/22 13:00 [facility] (Rec: 06/25/22 13:40 [facility] [id number]) Therapeutic Exercises Supine Exercises roll outs with theraband Reps/Minutes 2 x 10 reps supine ball squeeze with pelvic floor contraction Reps/Minutes x 10 pelvic floor long holds Reps/Minutes 7.1 average and 10.2 uv max Comments used ball as assist Neuro Re-Education Treatment Other Activities NMES for the pelvic floor Details 25 Reps/Duration 10 min Comments pt call feel 6-9 of the pelvic of the pelvic clock after 10 min pt could feel tingling in the left buttock region, she was more fatigued doing her exercises following NMES Self-Care/Home Management Treatment Education Patient Education Home Exercise Program Other Education time was spent discussing voiding as well as pelvic floor full relaxation to assist with bladder emptying. PT-OP-T Assessment and Plan Start: 06/23/22 09:21 Freq: Status: Active Protocol: Document 06/25/22 13:00 [facility] (Rec: 06/25/22 17:26 [facility] [id number]) Physical Therapy Assessment Assessment Summary Assessment trial of NMES today, Maddison could feel sensation on the right side only. 10 min of NMES did fatigue her and she was more fatigued with emg biofeedback today. We used adductor assist for her with her pelvic floor long holds. I added in hip roll outs with theraband today and she tolerated well Physical Therapy Plan Frequency and Duration Frequency of Treatment 2x/Week Duration of treatment (weeks) 8 Plan of Care Start Date 06/23/22 Plan of Care End Date 08/18/22 Therapeutic Interventions Therapeutic Interventions Home Exercise Program, Neuromuscular Re-education, Patient/Caregiver Education, Self-Care/Home Management, Therapeutic Exercises Modalities Biofeedback,Electric Stimulation Next Visit Focus/Plan Next Note Type Treatment Note Next Visit Plan continue with NMES and emg biofeedback for pelvic floor facilitation, check sacral alignment next visit
--- NOTE | 2022-07-07 17:36 | PT.OTN ---
Current Diagnoses Cauda equina syndrome (07/07/22) Flaccid neuropathic bladder, not elsewhere classified (07/07/22) Retention of urine, unspecified (07/07/22) Physical Therapy Treatment Note PT-OP-A Visit Information Start: 06/23/22 09:21 Freq: Status: Active Protocol: Document 07/07/22 13:45 [facility] (Rec: 07/07/22 17:23 [facility] [id number]) Out-Patient Physical Therapy Visit Information Visit Information Visit Start Time 13:45 Visit Stop Time 14:30 Total Visit Minutes 45 Visit Number 2 Evaluation Information Evaluation Date 06/23/22 PT-OP-B Current Condition Start: 06/23/22 09:21 Freq: Status: Active Protocol: Document 06/23/22 10:30 [facility] (Rec: 06/23/22 12:24 [facility] [id number]) Current Condition History of Current Condition Onset Date January 2022 Current Complaints cauda equina syndrome with urinary retention, neurogenic bladder History of Current Condition 36 year old women who underwent a emergency L5-S1 laminectomy and microdiskectomy 02/02/22 due to saddle parathesia and inability to void. She is 3 months s/p surgery and currently she describes paresthesia over the left buttock and left vaginal wall, genitalia, and rectum. She does feel that paresthesia for the left buttock is improving since surgery. She is self- catheterizing to empty her bladder and uses the catheter 6-7 xms per day. She notes 2 weeks ago she was able to start voiding and she finds that if she has more than 500 cc's in her bladder she is able to independently void. She is not able to fully empty her bladder and reports she has a residual 200 cc's left after self voiding. She manages bowel function with softeners and magnesium. She denies c/o urinary leakage or bowel leakage. She reports low back pain as 3 /10 worse on the left side Treatment Goals Patient/Caregiver Goals pt would like pelvic floor assessment and core strengthening to help support both her back and her bladder Prior Functional Status Baseline Function- ADL's Independent Baseline Function- Mobility Independent Current Functional Impairments (Reported) Functional Limitations- Other neurogenic bladder, pt requires self catheterization to fully empty her bladder PT-OP-C Subjective Start: 06/23/22 09:21 Freq: Status: Active Protocol: Document 07/07/22 13:51 [facility] (Rec: 04/25/23 15:19 [facility] [id number]) OP-PT Subjective Patient Comments Patient Comments pt notes she has been starting to void more, if she leans forward she can for the most part empty her bladder, when she is tired she has a more difficult time, she has been able to empty her bladder except for approx 25 cc's. She is encouraged by this. She has traveled for work and is more fatigued today if she lays on her back with knees up it can fire up the sacral area Patient Reported Progress Improving PT-OP-F Manual Assessment Start: 06/23/22 09:21 Freq: Status: Active Protocol: Document 06/23/22 10:30 [facility] (Rec: 06/23/22 13:33 [facility] [id number]) Manual Assessments Soft Tissue Assessment Soft Tissue Mobility Assessment with internal pelvic floor assessment there is atrophy of the left wall of the levator ani as compared to the right. No muscle guarding noted PT-OP-I Pelvic Floor Start: 06/23/22 09:21 Freq: Status: Active Protocol: Document 06/25/22 13:00 [facility] (Rec: 06/25/22 13:40 [facility] [id number]) Pelvic Floor Assessment SEMG (uV) 10 Second Contraction 7.1 PT-OP-M Strength Start: 06/23/22 09:21 Freq: Status: Active Protocol: Document 06/23/22 17:09 [facility] (Rec: 06/23/22 17:10 [facility] [id number]) Trunk Strength Trunk Manual Muscle Testing Testing Position Supine Core Stabilization decreased activation of the transverse abdominal musculature PT-OP-Q Treatments Start: 06/23/22 17:16 Freq: Status: Active Protocol: Document 07/07/22 13:51 [facility] (Rec: 07/07/22 15:19 [facility] [id number]) Therapeutic Exercises Supine Exercises pelvic floor long holds Reps/Minutes 3.5 and max of 6.4 Comments sidelying Manual Therapy Treatment Soft Tissue Mobilization MFR on either side of the sacrum Mobilization Type Myofascial Release Intensity/Depth Moderate Body Position Prone Comments MFR to release attachments of the piriformis and gluteals to the sacrum and sacral decompression was performed. Pt tolerated well Taping kinesiotape Body Location over the lumbar scar Treatment Focus to provide a lift to the tissue allowing circulation Type of Tape Kinesio Tape Neuro Re-Education Treatment Other Activities NMES for the pelvic floor Details level 9 Reps/Duration 10 min Comments pt is laying on her left side today with pillow between knees. She is aware of the left gluteal tingling with the NMES even on her left side. Self-Care/Home Management Treatment Education Patient Education Home Exercise Program,Pain Management Other Education pt educated on positional changes to decrease gluteal tension with pelvic floor contractions PT-OP-T Assessment and Plan Start: 06/23/22 09:21 Freq: Status: Active Protocol: Document 07/07/22 13:51 [facility] (Rec: 07/07/22 15:19 [facility] [id number]) Physical Therapy Assessment Assessment Summary Assessment NMES was performed again and pt could feel right side only however it did cause tingling sensation in to her gluteal region that is numb. She was tired today and her pelvic floor recruitment was not as much on EMGbiofeedback. We tried sidelying and this was more difficult for her so Maddison will also attempt exercises in khalif pose and prone. I did work with some manual therapy over the sacrum to release piriformis attachments and sacral decompression. Kinesiotape was also applied over her scar in a star pattern to help with tightness and improve circulation. Physical Therapy Plan Frequency and Duration Frequency of Treatment 2x/Week Duration of treatment (weeks) 8 Plan of Care Start Date 06/23/22 Plan of Care End Date 08/18/22 Therapeutic Interventions Therapeutic Interventions Home Exercise Program, Neuromuscular Re-education, Patient/Caregiver Education, Self-Care/Home Management, Therapeutic Exercises Modalities Biofeedback,Electric Stimulation Next Visit Focus/Plan Next Note Type Treatment Note Next Visit Plan trial of khalif pose or prone for emg biofeedback, right sidelying for NMES next visit, asses how pt did with tape and work over her sacrum
--- NOTE | 2022-07-14 16:00 | PT.OTN ---
Current Diagnoses Cauda equina syndrome (07/14/22) Flaccid neuropathic bladder, not elsewhere classified (07/14/22) Retention of urine, unspecified (07/14/22) Physical Therapy Treatment Note PT-OP-A Visit Information Start: 06/23/22 09:21 Freq: Status: Active Protocol: Document 07/14/22 13:31 [facility] (Rec: 07/14/22 14:18 [facility] [id number]) Out-Patient Physical Therapy Visit Information Visit Information Visit Type Treatment Note Visit Start Time 13:35 Visit Stop Time 14:15 Total Visit Minutes 40 Visit Number 3 PT-OP-B Current Condition Start: 06/23/22 09:21 Freq: Status: Active Protocol: Document 06/23/22 10:30 [facility] (Rec: 06/23/22 12:24 [facility] [id number]) Current Condition History of Current Condition Onset Date January 2022 Current Complaints cauda equina syndrome with urinary retention, neurogenic bladder History of Current Condition 36 year old women who underwent a emergency L5-S1 laminectomy and microdiskectomy 02/02/22 due to saddle parathesia and inability to void. She is 3 months s/p surgery and currently she describes paresthesia over the left buttock and left vaginal wall, genitalia, and rectum. She does feel that paresthesia for the left buttock is improving since surgery. She is self- catheterizing to empty her bladder and uses the catheter 6-7 xms per day. She notes 2 weeks ago she was able to start voiding and she finds that if she has more than 500 cc's in her bladder she is able to independently void. She is not able to fully empty her bladder and reports she has a residual 200 cc's left after self voiding. She manages bowel function with softeners and magnesium. She denies c/o urinary leakage or bowel leakage. She reports low back pain as 3 /10 worse on the left side Treatment Goals Patient/Caregiver Goals pt would like pelvic floor assessment and core strengthening to help support both her back and her bladder Prior Functional Status Baseline Function- ADL's Independent Baseline Function- Mobility Independent Current Functional Impairments (Reported) Functional Limitations- Other neurogenic bladder, pt requires self catheterization to fully empty her bladder PT-OP-C Subjective Start: 06/23/22 09:21 Freq: Status: Active Protocol: Document 07/14/22 13:31 [facility] (Rec: 07/14/22 14:18 [facility] [id number]) OP-PT Subjective Patient Comments Patient Comments pt notes she had the tape on for a good amount of time. She had a appointment with dr Deng and is only have to cath 2 times a day now. She doesn't feel as fatigued as last week. She isn't sleeping well still Patient Reported Progress Improving PT-OP-F Manual Assessment Start: 06/23/22 09:21 Freq: Status: Active Protocol: Document 06/23/22 10:30 [facility] (Rec: 06/23/22 13:33 [facility] [id number]) Manual Assessments Soft Tissue Assessment Soft Tissue Mobility Assessment with internal pelvic floor assessment there is atrophy of the left wall of the levator ani as compared to the right. No muscle guarding noted PT-OP-I Pelvic Floor Start: 06/23/22 09:21 Freq: Status: Active Protocol: Document 06/25/22 13:00 [facility] (Rec: 06/25/22 13:40 [facility] [id number]) Pelvic Floor Assessment SEMG (uV) 10 Second Contraction 7.1 PT-OP-M Strength Start: 06/23/22 09:21 Freq: Status: Active Protocol: Document 06/23/22 17:09 [facility] (Rec: 06/23/22 17:10 [facility] [id number]) Trunk Strength Trunk Manual Muscle Testing Testing Position Supine Core Stabilization decreased activation of the transverse abdominal musculature PT-OP-Q Treatments Start: 06/23/22 17:16 Freq: Status: Active Protocol: Document 07/14/22 13:31 [facility] (Rec: 07/14/22 14:18 [facility] [id number]) Therapeutic Exercises Supine Exercises roll outs with theraband Reps/Minutes x 20 supine ball squeeze with pelvic floor contraction Reps/Minutes x 10 reps Comments 5.6 and 10.9 pelvic floor long holds Reps/Minutes 5.0 and max of 8 Comments supine Manual Therapy Treatment Soft Tissue Mobilization MFR on either side of the sacrum Mobilization Type Myofascial Release Intensity/Depth Moderate Body Position Prone Comments MFR to release attachments of the piriformis and gluteals to the sacrum and sacral decompression was performed. Pt tolerated well Taping kinesiotape Body Location over the lumbar scar Treatment Focus to provide a lift to the tissue allowing circulation Type of Tape Kinesio Tape Neuro Re-Education Treatment Other Activities NMES for the pelvic floor Details level 30 Reps/Duration 10 min Comments pt is laying on her back for treatment today. 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 As of 07/14/22 pt is now cathing 2 times per day with improvements in bladder emptying with using her abdominal muscles as well as leaning forward. LTG Duration 8 weeks + 2 Impairment Decreased endurance of the pelvic floor Short Term Goal (STG) pt is able to sustain a pelvic floor contraction in supine x 10 seconds STG Duration 5 weeks Project Engineering Director Goal (LTG) pt is able to sustain a pelvic floor contraction in standing x 10 seconds LTG Duration 12 weeks 1 Impairment caudia equida syndrome with pelvic floor weakness Project Engineering Director Goal (LTG) pt is able to strengthen her pelvic floor to improve support to her bladder. LTG Duration 8 weeks Assessment Summary Assessment Maddison presented with improved pelvic floor recruitment today, she is able to better isolate her pelvic floor now without the ball for adductor squeeze. She still fatigues very quickly. She really liked the tape so this was applied again today over her incision and I worked on the fascial tissue along the sacral borders B. She is still more guarded over the left side of the sacrum. Physical Therapy Plan Frequency and Duration Frequency of Treatment 2x/Week Duration of treatment (weeks) 8 Plan of Care Start Date 06/23/22 Plan of Care End Date 08/18/22 Therapeutic Interventions Therapeutic Interventions Home Exercise Program, Neuromuscular Re-education, Patient/Caregiver Education, Self-Care/Home Management, Therapeutic Exercises Modalities Biofeedback,Electric Stimulation Next Visit Focus/Plan Next Note Type Treatment Note Next Visit Plan continue progressing pelvic floor strength as well as sacral mobility, assess scar tissue in the low back
--- NOTE | 2022-07-21 13:36 | PT.OTN ---
Current Diagnoses Cauda equina syndrome (07/21/22) Flaccid neuropathic bladder, not elsewhere classified (07/21/22) Retention of urine, unspecified (07/21/22) Physical Therapy Treatment Note PT-OP-A Visit Information Start: 06/23/22 09:21 Freq: Status: Active Protocol: Document 07/21/22 13:35 [facility] (Rec: 07/21/22 14:19 [facility] [id number]) Out-Patient Physical Therapy Visit Information Visit Information Visit Type Treatment Note Visit Start Time 13:30 Visit Stop Time 14:16 Total Visit Minutes 46 Visit Number 4 PT-OP-B Current Condition Start: 06/23/22 09:21 Freq: Status: Active Protocol: Document 06/23/22 10:30 [facility] (Rec: 06/23/22 12:24 [facility] [id number]) Current Condition History of Current Condition Onset Date January 2022 Current Complaints cauda equina syndrome with urinary retention, neurogenic bladder History of Current Condition 36 year old women who underwent a emergency L5-S1 laminectomy and microdiskectomy 02/02/22 due to saddle parathesia and inability to void. She is 3 months s/p surgery and currently she describes paresthesia over the left buttock and left vaginal wall, genitalia, and rectum. She does feel that paresthesia for the left buttock is improving since surgery. She is self- catheterizing to empty her bladder and uses the catheter 6-7 xms per day. She notes 2 weeks ago she was able to start voiding and she finds that if she has more than 500 cc's in her bladder she is able to independently void. She is not able to fully empty her bladder and reports she has a residual 200 cc's left after self voiding. She manages bowel function with softeners and magnesium. She denies c/o urinary leakage or bowel leakage. She reports low back pain as 3 /10 worse on the left side Treatment Goals Patient/Caregiver Goals pt would like pelvic floor assessment and core strengthening to help support both her back and her bladder Prior Functional Status Baseline Function- ADL's Independent Baseline Function- Mobility Independent Current Functional Impairments (Reported) Functional Limitations- Other neurogenic bladder, pt requires self catheterization to fully empty her bladder PT-OP-C Subjective Start: 06/23/22 09:21 Freq: Status: Active Protocol: Document 07/21/22 13:35 [facility] (Rec: 07/21/22 14:19 [facility] [id number]) OP-PT Subjective Patient Comments Patient Comments pt notes she feels the tape help her back feels stronger, exercises are going well, she feels sore with intercourse she felt tender, she is doing khalif pose cathing [address] Deng's orders now She slept 9 hours last night and that felt really good Patient Reported Progress Improving PT-OP-F Manual Assessment Start: 06/23/22 09:21 Freq: Status: Active Protocol: Document 06/23/22 10:30 [facility] (Rec: 06/23/22 13:33 [facility] [id number]) Manual Assessments Soft Tissue Assessment Soft Tissue Mobility Assessment with internal pelvic floor assessment there is atrophy of the left wall of the levator ani as compared to the right. No muscle guarding noted PT-OP-I Pelvic Floor Start: 06/23/22 09:21 Freq: Status: Active Protocol: Document 06/25/22 13:00 [facility] (Rec: 06/25/22 13:40 [facility] [id number]) Pelvic Floor Assessment SEMG (uV) 10 Second Contraction 7.1 PT-OP-M Strength Start: 06/23/22 09:21 Freq: Status: Active Protocol: Document 06/23/22 17:09 [facility] (Rec: 06/23/22 17:10 [facility] [id number]) Trunk Strength Trunk Manual Muscle Testing Testing Position Supine Core Stabilization decreased activation of the transverse abdominal musculature PT-OP-Q Treatments Start: 06/23/22 17:16 Freq: Status: Active Protocol: Document 07/21/22 13:35 [facility] (Rec: 07/21/22 14:19 [facility] [id number]) Therapeutic Exercises Supine Exercises supine ball squeeze with pelvic floor contraction Comments 7.1 33.7 uv max pelvic floor long holds Reps/Minutes average 6.3 max 12.2 Comments supine Neuro Re-Education Treatment Other Activities NMES for the pelvic floor Details level 11 Comments laying on right side side. PT-OP-T Assessment and Plan Start: 06/23/22 09:21 Freq: Status: Active Protocol: Document 07/21/22 13:35 [facility] (Rec: 07/22/22 13:36 [facility] [id number]) Physical Therapy Assessment Assessment Summary Assessment Maddison is showing improvements with pelvic floor endurance and strength. We kept the NMES at a lower intensity today at level 11. I also added in pelvic floor stretches to do post pelvic floor exercises Physical Therapy Plan Frequency and Duration Frequency of Treatment 2x/Week Duration of treatment (weeks) 8 Plan of Care Start Date 06/23/22 Plan of Care End Date 08/18/22 Therapeutic Interventions Therapeutic Interventions Home Exercise Program, Neuromuscular Re-education, Patient/Caregiver Education, Self-Care/Home Management, Therapeutic Exercises Modalities Biofeedback,Electric Stimulation Next Visit Focus/Plan Next Note Type Treatment Note Next Visit Plan continue progressing pelvic floor strength as well as sacral mobility, assess scar tissue in the low back
--- NOTE | 2022-07-28 17:23 | PT.OTN ---
Current Diagnoses Cauda equina syndrome (07/28/22) Flaccid neuropathic bladder, not elsewhere classified (07/28/22) Retention of urine, unspecified (07/28/22) Physical Therapy Treatment Note PT-OP-A Visit Information Start: 06/23/22 09:21 Freq: Status: Active Protocol: Document 07/28/22 13:34 [facility] (Rec: 07/28/22 14:32 [facility] [id number]) Out-Patient Physical Therapy Visit Information Visit Information Visit Type Treatment Note Visit Start Time 13:30 Visit Stop Time 14:15 Total Visit Minutes 45 Visit Number 5 PT-OP-B Current Condition Start: 06/23/22 09:21 Freq: Status: Active Protocol: Document 06/23/22 10:30 [facility] (Rec: 06/23/22 12:24 [facility] [id number]) Current Condition History of Current Condition Onset Date January 2022 Current Complaints cauda equina syndrome with urinary retention, neurogenic bladder History of Current Condition 36 year old women who underwent a emergency L5-S1 laminectomy and microdiskectomy 02/02/22 due to saddle parathesia and inability to void. She is 3 months s/p surgery and currently she describes paresthesia over the left buttock and left vaginal wall, genitalia, and rectum. She does feel that paresthesia for the left buttock is improving since surgery. She is self- catheterizing to empty her bladder and uses the catheter 6-7 xms per day. She notes 2 weeks ago she was able to start voiding and she finds that if she has more than 500 cc's in her bladder she is able to independently void. She is not able to fully empty her bladder and reports she has a residual 200 cc's left after self voiding. She manages bowel function with softeners and magnesium. She denies c/o urinary leakage or bowel leakage. She reports low back pain as 3 /10 worse on the left side Treatment Goals Patient/Caregiver Goals pt would like pelvic floor assessment and core strengthening to help support both her back and her bladder Prior Functional Status Baseline Function- ADL's Independent Baseline Function- Mobility Independent Current Functional Impairments (Reported) Functional Limitations- Other neurogenic bladder, pt requires self catheterization to fully empty her bladder PT-OP-C Subjective Start: 06/23/22 09:21 Freq: Status: Active Protocol: Document 07/28/22 13:34 [facility] (Rec: 07/28/22 14:32 [facility] [id number]) OP-PT Subjective Patient Comments Patient Comments pt notes she is voiding on her own now not using the cath at all She has gone 4 times this am, she still has the nerve senstation of needing to have a bowel movement but nothing comes out. She didn't have any irritation after last visit She feels the kinesiotape is working as well as working on the sacrum with manual therapy techniques Patient Reported Progress Improving PT-OP-F Manual Assessment Start: 06/23/22 09:21 Freq: Status: Active Protocol: Document 06/23/22 10:30 [facility] (Rec: 06/23/22 13:33 [facility] [id number]) Manual Assessments Soft Tissue Assessment Soft Tissue Mobility Assessment with internal pelvic floor assessment there is atrophy of the left wall of the levator ani as compared to the right. No muscle guarding noted PT-OP-I Pelvic Floor Start: 06/23/22 09:21 Freq: Status: Active Protocol: Document 06/25/22 13:00 [facility] (Rec: 06/25/22 13:40 [facility] [id number]) Pelvic Floor Assessment SEMG (uV) 10 Second Contraction 7.1 PT-OP-M Strength Start: 06/23/22 09:21 Freq: Status: Active Protocol: Document 06/23/22 17:09 [facility] (Rec: 06/23/22 17:10 [facility] [id number]) Trunk Strength Trunk Manual Muscle Testing Testing Position Supine Core Stabilization decreased activation of the transverse abdominal musculature PT-OP-Q Treatments Start: 06/23/22 17:16 Freq: Status: Active Protocol: Document 07/28/22 13:34 [facility] (Rec: 07/28/22 14:32 [facility] [id number]) Therapeutic Exercises Other Exercises quadruped TA Reps/Minutes x 10 reps Neuro Re-Education Treatment Other Activities NMES for the pelvic floor Details level 11 Comments back laying Self-Care/Home Management Treatment Education Patient Education Home Exercise Program Other Education voiding discussion and TA isolation HEP PT-OP-T Assessment and Plan Start: 06/23/22 09:21 Freq: Status: Active Protocol: Document 07/28/22 13:34 [facility] (Rec: 07/28/22 14:32 [facility] [id number]) Physical Therapy Assessment Goals 3 Impairment urinary retention with self catheterization 6-7 times per day Retirement Goal (LTG) 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 As of 07/14/22 pt is now cathing 2 times per day with improvements in bladder emptying with using her abdominal muscles as well as leaning forward. LTG Duration 8 weeks + 2 Impairment Decreased endurance of the pelvic floor Short Term Goal (STG) pt is able to sustain a pelvic floor contraction in supine x 10 seconds STG Duration 5 weeks Retirement Goal (LTG) pt is able to sustain a pelvic floor contraction in standing x 10 seconds LTG Duration 12 weeks 1 Impairment caudia equida syndrome with pelvic floor weakness Fire Safety Manager Goal (LTG) pt is able to strengthen her pelvic floor to improve support to her bladder. LTG Duration 8 weeks Assessment Summary Assessment Maddison is making steady improvements with her function . Keeping the NMES at a lower level has been helpful so that she isn't experiencing the irritation from her pelvic floor. She has been working on her stretches and feeling like they are helping. Physical Therapy Plan Frequency and Duration Frequency of Treatment 2x/Week Duration of treatment (weeks) 8 Plan of Care Start Date 06/23/22 Plan of Care End Date 08/18/22 Next Visit Focus/Plan Next Note Type Treatment Note Next Visit Plan continue progressing pelvic floor strength as well as sacral mobility, assess scar tissue in the low back
--- NOTE | 2022-08-04 15:02 | PT.OTN ---
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) Retention of urine, unspecified (08/04/22) Physical Therapy Treatment Note PT-OP-A Visit Information Start: 06/23/22 09:21 Freq: Status: Active Protocol: Document 08/04/22 14:18 [facility] (Rec: 08/04/22 14:51 [facility] [id number]) Out-Patient Physical Therapy Visit Information Visit Information Visit Type Treatment Note Visit Start Time 14:15 Visit Stop Time 15:00 Total Visit Minutes 45 Visit Number 6 PT-OP-B Current Condition Start: 06/23/22 09:21 Freq: Status: Active Protocol: Document 06/23/22 10:30 [facility] (Rec: 06/23/22 12:24 [facility] [id number]) Current Condition History of Current Condition Onset Date January 2022 Current Complaints cauda equina syndrome with urinary retention, neurogenic bladder History of Current Condition 36 year old women who underwent a emergency L5-S1 laminectomy and microdiskectomy 02/02/22 due to saddle parathesia and inability to void. She is 3 months s/p surgery and currently she describes paresthesia over the left buttock and left vaginal wall, genitalia, and rectum. She does feel that paresthesia for the left buttock is improving since surgery. She is self- catheterizing to empty her bladder and uses the catheter 6-7 xms per day. She notes 2 weeks ago she was able to start voiding and she finds that if she has more than 500 cc's in her bladder she is able to independently void. She is not able to fully empty her bladder and reports she has a residual 200 cc's left after self voiding. She manages bowel function with softeners and magnesium. She denies c/o urinary leakage or bowel leakage. She reports low back pain as 3 /10 worse on the left side Treatment Goals Patient/Caregiver Goals pt would like pelvic floor assessment and core strengthening to help support both her back and her bladder Prior Functional Status Baseline Function- ADL's Independent Baseline Function- Mobility Independent Current Functional Impairments (Reported) Functional Limitations- Other neurogenic bladder, pt requires self catheterization to fully empty her bladder PT-OP-C Subjective Start: 06/23/22 09:21 Freq: Status: Active Protocol: Document 08/04/22 14:18 [facility] (Rec: 08/04/22 14:51 [facility] [id number]) OP-PT Subjective Patient Comments Patient Comments pt notes intercourse was not as sore last time, pt notes she took off the kinesiotape. Pt notes she is finding it getting easier and easier to void. Even first thing in the am it is easier. TA is also feeling stronger Patient Reported Progress Improving PT-OP-F Manual Assessment Start: 06/23/22 09:21 Freq: Status: Active Protocol: Document 06/23/22 10:30 [facility] (Rec: 06/23/22 13:33 [facility] [id number]) Manual Assessments Soft Tissue Assessment Soft Tissue Mobility Assessment with internal pelvic floor assessment there is atrophy of the left wall of the levator ani as compared to the right. No muscle guarding noted PT-OP-I Pelvic Floor Start: 06/23/22 09:21 Freq: Status: Active Protocol: Document 06/25/22 13:00 [facility] (Rec: 06/25/22 13:40 [facility] [id number]) Pelvic Floor Assessment SEMG (uV) 10 Second Contraction 7.1 PT-OP-M Strength Start: 06/23/22 09:21 Freq: Status: Active Protocol: Document 06/23/22 17:09 [facility] (Rec: 06/23/22 17:10 [facility] [id number]) Trunk Strength Trunk Manual Muscle Testing Testing Position Supine Core Stabilization decreased activation of the transverse abdominal musculature PT-OP-Q Treatments Start: 06/23/22 17:16 Freq: Status: Active Protocol: Document 08/04/22 15:02 [facility] (Rec: 08/04/22 15:02 [facility] [id number]) Neuro Re-Education Treatment Other Activities NMES for the pelvic floor Details level 13 Reps/Duration x 10 min Comments back laying PT-OP-T Assessment and Plan Start: 06/23/22 09:21 Freq: Status: Active Protocol: Document 08/04/22 14:18 [facility] (Rec: 08/04/22 14:51 [facility] [id number]) Physical Therapy Assessment Goals 3 Impairment urinary retention with self catheterization 6-7 times per day [place] Goal (LTG) 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 As of 07/14/22 pt is now cathing 2 times per day with improvements in bladder emptying with using her abdominal muscles as well as leaning forward. Goal met LTG Duration 8 weeks + 2 Impairment Decreased endurance of the pelvic floor Short Term Goal (STG) pt is able to sustain a pelvic floor contraction in supine x 10 seconds able to hold but fatigues still after 1o reps STG Duration 5 weeks Group Home Goal (LTG) pt is able to sustain a pelvic floor contraction in standing x 10 seconds pt to start practicing finding her pelvic floor standin LTG Duration 12 weeks Assessment Summary Assessment Maddison continues to show improvements with ability to void and she is tolerating more for her pelvic floor with exercises. Clam shells aggravate the region of the pundendal nerve but she is able to do sidelyinghip abduction as well as sidelying hip circles. Will do a manual recheck of the pelvic floor next visit Physical Therapy Plan Frequency and Duration Frequency of Treatment 2x/Week Duration of treatment (weeks) 8 Plan of Care Start Date 06/23/22 Plan of Care End Date 08/18/22 Therapeutic Interventions Therapeutic Interventions Home Exercise Program, Neuromuscular Re-education, Patient/Caregiver Education, Self-Care/Home Management, Therapeutic Exercises Modalities Biofeedback,Electric Stimulation Next Visit Focus/Plan Next Note Type Treatment Note Next Visit Plan recheck tone of the pelvic floor next visit
--- NOTE | 2022-08-12 09:40 | PT.OTN ---
Current Diagnoses Cauda equina syndrome (08/11/22) Flaccid neuropathic bladder, not elsewhere classified (08/11/22) Retention of urine, unspecified (08/11/22) Physical Therapy Treatment Note PT-OP-A Visit Information Start: 06/23/22 09:21 Freq: Status: Active Protocol: Document 08/11/22 14:17 [facility] (Rec: 08/11/22 14:50 [facility] [id number]) Out-Patient Physical Therapy Visit Information Visit Information Visit Type Progress Note Visit Start Time 14:15 Visit Stop Time 15:00 Total Visit Minutes 45 Visit Number 7 PT-OP-B Current Condition Start: 06/23/22 09:21 Freq: Status: Active Protocol: Document 06/23/22 10:30 [facility] (Rec: 06/23/22 12:24 [facility] [id number]) Current Condition History of Current Condition Onset Date January 2022 Current Complaints cauda equina syndrome with urinary retention, neurogenic bladder History of Current Condition 36 year old women who underwent a emergency L5-S1 laminectomy and microdiskectomy 02/02/22 due to saddle parathesia and inability to void. She is 3 months s/p surgery and currently she describes paresthesia over the left buttock and left vaginal wall, genitalia, and rectum. She does feel that paresthesia for the left buttock is improving since surgery. She is self- catheterizing to empty her bladder and uses the catheter 6-7 xms per day. She notes 2 weeks ago she was able to start voiding and she finds that if she has more than 500 cc's in her bladder she is able to independently void. She is not able to fully empty her bladder and reports she has a residual 200 cc's left after self voiding. She manages bowel function with softeners and magnesium. She denies c/o urinary leakage or bowel leakage. She reports low back pain as 3 /10 worse on the left side Treatment Goals Patient/Caregiver Goals pt would like pelvic floor assessment and core strengthening to help support both her back and her bladder Prior Functional Status Baseline Function- ADL's Independent Baseline Function- Mobility Independent Current Functional Impairments (Reported) Functional Limitations- Other neurogenic bladder, pt requires self catheterization to fully empty her bladder PT-OP-C Subjective Start: 06/23/22 09:21 Freq: Status: Active Protocol: Document 08/11/22 14:17 [facility] (Rec: 08/11/22 14:50 [facility] [id number]) OP-PT Subjective Patient Comments Patient Comments pt traveled to [place] and is doing good using other bathrooms and feels she is voiding all the way. She notes this is getting easier to do. Patient Reported Progress Improving PT-OP-F Manual Assessment Start: 06/23/22 09:21 Freq: Status: Active Protocol: Document 06/23/22 10:30 [facility] (Rec: 06/23/22 13:33 [facility] [id number]) Manual Assessments Soft Tissue Assessment Soft Tissue Mobility Assessment with internal pelvic floor assessment there is atrophy of the left wall of the levator ani as compared to the right. No muscle guarding noted PT-OP-I Pelvic Floor Start: 06/23/22 09:21 Freq: Status: Active Protocol: Document 08/11/22 14:17 [facility] (Rec: 08/11/22 14:54 [facility] [id number]) Pelvic Floor Assessment Pelvic Clock Pelvic Clock Other palpable contraction now for all aspects of the levator ani , pt is unaware that her left side is liz but much improved contraction ability Contraction Ability Manual Muscle Testing Left 2 Manual Muscle Testing Right 3 Manual Muscle Testing Anterior 2 Manual Muscle Testing Posterior 3 Muscle Endurance (Seconds) 8 PT-OP-M Strength Start: 06/23/22 09:21 Freq: Status: Active Protocol: Document 06/23/22 17:09 [facility] (Rec: 06/23/22 17:10 [facility] [id number]) Trunk Strength Trunk Manual Muscle Testing Testing Position Supine Core Stabilization decreased activation of the transverse abdominal musculature PT-OP-Q Treatments Start: 06/23/22 17:16 Freq: Status: Active Protocol: Document 08/11/22 14:17 [facility] (Rec: 08/11/22 14:50 [facility] [id number]) Therapeutic Exercises Supine Exercises templates for eccentric control Equipment Used elevator exercise quick pelvic floor contraction Reps/Minutes x 10 reps pelvic floor long holds Reps/Minutes 5.2 and max of 9.5 Manual Therapy Treatment Manual Techniques manual recheck of the pelvic floor muscles Comments improved muscle tone bilaterally and Maddison is now able to contract the left lateral wall of her levator ani Neuro Re-Education Treatment Other Activities NMES for the pelvic floor Details level 13 Reps/Duration x 10 min Comments back laying PT-OP-T Assessment and Plan Start: 06/23/22 09:21 Freq: Status: Active Protocol: Document 08/11/22 14:17 [facility] (Rec: 08/11/22 14:50 [facility] [id number]) Physical Therapy Assessment Goals 3 Impairment urinary retention with self catheterization 6-7 times per day Corporate Attorney Goal (LTG) 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 As of 08/11/22 pt is now voiding independently Goal met LTG Duration 8 weeks + 2 Impairment Decreased endurance of the pelvic floor Short Term Goal (STG) pt is able to sustain a pelvic floor contraction in supine x 10 seconds able to hold but fatigues still after 10 reps STG Duration 5 weeks Correction Goal (LTG) pt is able to sustain a pelvic floor contraction in standing x 10 seconds pt to start practicing finding her pelvic floor standing LTG Duration 12 weeks 1 Impairment caudia equida syndrome with pelvic floor weakness Corporate Attorney Goal (LTG) pt is able to strengthen her pelvic floor to improve support to her bladder. excellent progress and there is now a contraction on the left lateral wall of the levator ani with MMT 2/5 for the pateral wall and 3/5 posterior wall LTG Duration 8 weeks Assessment Summary Assessment Maddison is making really good progress with pelvic floor strengthening. With pelvic exam today she is now able to contract the left lateral wall of the levator ani. She has improved strength in the posterior wall as well. The anterior wall remains the weakest B however I am able to feel a contraction now on the left side. Maddison still has no sensation on the left and she is unaware she is liz the left wall of the levator ani. We continue to use EMG biofeedback as well as NMES for the pelvic floor to help with recruitment . In today's treatment we discussed practicing squatting to void as she prepares for a back pack trip later this summer. Maddison would benefit from continued PT. Physical Therapy Plan Frequency and Duration Frequency of Treatment 2x/Week Duration of treatment (weeks) 8 Plan of Care Start Date 08/11/22 Plan of Care End Date 10/06/22 Therapeutic Interventions Therapeutic Interventions Home Exercise Program, Neuromuscular Re-education, Patient/Caregiver Education, Self-Care/Home Management, Therapeutic Exercises Modalities Biofeedback,Electric Stimulation Next Visit Focus/Plan Next Note Type Treatment Note Next Visit Plan trial of EMG biofeedback in a standing position next visit.
--- NOTE | 2022-08-12 09:41 | PT.OPPOC ---
Physical, Occupational & Speech Therapy At [facility] Current Diagnoses Cauda equina syndrome (08/11/22) Flaccid neuropathic bladder, not elsewhere classified (08/11/22) Retention of urine, unspecified (08/11/22) Visit Care Team Role Provider Type Jeanette Wilhelm PA-C Family Provider Advanced Resource Technician Primary Care Provider Specialty: Medical Address: [address] [place] [address], [id number] Email: Luis Deng MD Attending Provider Physician Referring Provider Specialty: Urology Address: [address] [place] [address], [id number] Email: Plan Of Care PT-OP-T Assessment and Plan Start: 06/23/22 09:21 Freq: Status: Active Protocol: Document 08/11/22 14:17 [facility] (Rec: 08/11/22 14:50 [facility] [id number]) Physical Therapy Assessment Goals 3 Impairment urinary retention with self catheterization 6-7 times per day [facility] Goal (LTG) 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 As of 08/11/22 pt is now voiding independently Goal met LTG Duration 8 weeks + 2 Impairment Decreased endurance of the pelvic floor Short Term Goal (STG) pt is able to sustain a pelvic floor contraction in supine x 10 seconds able to hold but fatigues still after 10 reps STG Duration 5 weeks Lesson Instructor Goal (LTG) pt is able to sustain a pelvic floor contraction in standing x 10 seconds pt to start practicing finding her pelvic floor standing LTG Duration 12 weeks 1 Impairment caudia equida syndrome with pelvic floor weakness [facility] Goal (LTG) pt is able to strengthen her pelvic floor to improve support to her bladder. excellent progress and there is now a contraction on the left lateral wall of the levator ani with MMT 2/5 for the pateral wall and 3/5 posterior wall LTG Duration 8 weeks Assessment Summary Assessment Maddison is making really good progress with pelvic floor strengthening. With pelvic exam today she is now able to contract the left lateral wall of the levator ani. She has improved strength in the posterior wall as well. The anterior wall remains the weakest B however I am able to feel a contraction now on the left side. Maddison still has no sensation on the left and she is unaware she is liz the left wall of the levator ani. We continue to use EMG biofeedback as well as NMES for the pelvic floor to help with recruitment . In today's treatment we discussed practicing squatting to void as she prepares for a back pack trip later this summer. Maddison would benefit from continued PT. Physical Therapy Plan Frequency and Duration Frequency of Treatment 2x/Week Duration of treatment (weeks) 8 Plan of Care Start Date 08/11/22 Plan of Care End Date 10/06/22 Therapeutic Interventions Therapeutic Interventions Home Exercise Program, Neuromuscular Re-education, Patient/Caregiver Education, Self-Care/Home Management, Therapeutic Exercises Modalities Biofeedback,Electric Stimulation Next Visit Focus/Plan Next Note Type Treatment Note Next Visit Plan trial of EMG biofeedback in a standing position next visit. Plan of Care Dates Plan of Care Start Date 08/11/22 Plan of Care End Date 10/06/22 Electronically Signed by: Adriane Dickerson, PT 08/12/22 0941 If you are in agreement with this Plan of Care, please return a signed and dated copy. I have reviewed this Plan of Care and certify that the skilled therapy services above are required to meet the patient?s needs. Physician Signature Date Printed Name and Credentials Clinical Instructor Signature Printed Name and Credentials
--- NOTE | 2022-08-18 17:42 | PT.OTN ---
Current Diagnoses Cauda equina syndrome (08/18/22) Flaccid neuropathic bladder, not elsewhere classified (08/18/22) Retention of urine, unspecified (08/18/22) Physical Therapy Treatment Note PT-OP-A Visit Information Start: 06/23/22 09:21 Freq: Status: Active Protocol: Document 08/18/22 14:15 [facility] (Rec: 08/18/22 15:02 [facility] [id number]) Out-Patient Physical Therapy Visit Information Visit Information Visit Type Treatment Note PT-OP-B Current Condition Start: 06/23/22 09:21 Freq: Status: Active Protocol: Document 06/23/22 10:30 [facility] (Rec: 06/23/22 12:24 [facility] [id number]) Current Condition History of Current Condition Onset Date January 2022 Current Complaints cauda equina syndrome with urinary retention, neurogenic bladder History of Current Condition 36 year old women who underwent a emergency L5-S1 laminectomy and microdiskectomy 02/02/22 due to saddle parathesia and inability to void. She is 3 months s/p surgery and currently she describes paresthesia over the left buttock and left vaginal wall, genitalia, and rectum. She does feel that paresthesia for the left buttock is improving since surgery. She is self- catheterizing to empty her bladder and uses the catheter 6-7 xms per day. She notes 2 weeks ago she was able to start voiding and she finds that if she has more than 500 cc's in her bladder she is able to independently void. She is not able to fully empty her bladder and reports she has a residual 200 cc's left after self voiding. She manages bowel function with softeners and magnesium. She denies c/o urinary leakage or bowel leakage. She reports low back pain as 3 /10 worse on the left side Treatment Goals Patient/Caregiver Goals pt would like pelvic floor assessment and core strengthening to help support both her back and her bladder Prior Functional Status Baseline Function- ADL's Independent Baseline Function- Mobility Independent Current Functional Impairments (Reported) Functional Limitations- Other neurogenic bladder, pt requires self catheterization to fully empty her bladder PT-OP-C Subjective Start: 06/23/22 09:21 Freq: Status: Active Protocol: Document 08/18/22 14:15 [facility] (Rec: 08/18/22 15:02 [facility] [id number]) OP-PT Subjective Patient Comments Patient Comments pt notes voiding is going great and she doesn't have to use her core as much to void. Numbness is still the same but no pain. HEr next appt is October 01 PT-OP-F Manual Assessment Start: 06/23/22 09:21 Freq: Status: Active Protocol: Document 06/23/22 10:30 [facility] (Rec: 06/23/22 13:33 [facility] [id number]) Manual Assessments Soft Tissue Assessment Soft Tissue Mobility Assessment with internal pelvic floor assessment there is atrophy of the left wall of the levator ani as compared to the right. No muscle guarding noted PT-OP-I Pelvic Floor Start: 06/23/22 09:21 Freq: Status: Active Protocol: Document 08/11/22 14:17 [facility] (Rec: 08/11/22 14:54 [facility] [id number]) Pelvic Floor Assessment Pelvic Clock Pelvic Clock Other palpable contraction now for all aspects of the levator ani , pt is unaware that her left side is liz but much improved contraction ability Contraction Ability Manual Muscle Testing Left 2 Manual Muscle Testing Right 3 Manual Muscle Testing Anterior 2 Manual Muscle Testing Posterior 3 Muscle Endurance (Seconds) 8 PT-OP-M Strength Start: 06/23/22 09:21 Freq: Status: Active Protocol: Document 06/23/22 17:09 [facility] (Rec: 06/23/22 17:10 [facility] [id number]) Trunk Strength Trunk Manual Muscle Testing Testing Position Supine Core Stabilization decreased activation of the transverse abdominal musculature PT-OP-Q Treatments Start: 06/23/22 17:16 Freq: Status: Active Protocol: Document 08/18/22 14:15 [facility] (Rec: 08/18/22 15:02 [facility] [id number]) Therapeutic Exercises Supine Exercises templates for eccentric control Equipment Used elevator exercise quick pelvic floor contraction Reps/Minutes x10 Comments 14.5 max pelvic floor long holds Reps/Minutes 10.5 and 16.6 uv max Neuro Re-Education Treatment Other Activities NMES for the pelvic floor Details level 13 Reps/Duration x 8 min Comments back laying, pt not able to feel NMES at all today Self-Care/Home Management Treatment Education Patient Education Home Exercise Program Other Education pt educated on working on squatting to void since she will be backpacking in October PT-OP-T Assessment and Plan Start: 06/23/22 09:21 Freq: Status: Active Protocol: Document 08/18/22 14:15 [facility] (Rec: 08/18/22 17:36 [facility] [id number]) Physical Therapy Assessment Assessment Summary Assessment Maddison does not have another appt for a month, at that time we will recheck pelvic floor muscle engagment again as well as sensation. She did better today with pelvic floor recruitment. She was fatigued following and did not feel sensation with NMES Physical Therapy Plan Frequency and Duration Frequency of Treatment 2x/Week Duration of treatment (weeks) 8 Plan of Care Start Date 08/11/22 Plan of Care End Date 10/06/22 Therapeutic Interventions Therapeutic Interventions Home Exercise Program, Neuromuscular Re-education, Patient/Caregiver Education, Self-Care/Home Management, Therapeutic Exercises Modalities Biofeedback,Electric Stimulation Next Visit Focus/Plan Next Note Type Treatment Note Next Visit Plan recheck pelvic floor tone again next visit and trial of standing pelvic floor contractions
--- NOTE | 2022-10-01 17:00 | PT.OPPOC ---
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) Retention of urine, unspecified (10/01/22) Visit Care Team Role Provider Type Jeanette Wilhelm PA-C Family Provider Advanced Shield Runner Primary Care Provider Specialty: Medical Address: [address] [place] [address], [id number] Email: Luis Deng MD Attending Provider Physician Referring Provider Specialty: Urology Address: [address] [place] [address], [id number] Email: Plan Of Care PT-OP-T Assessment and Plan Start: 06/23/22 09:21 Freq: Status: Active Protocol: Document 10/01/22 08:51 [facility] (Rec: 10/06/22 08:13 [facility] [id number]) Physical Therapy Assessment Goals 4 Impairment lisa is 9 weeks and will benefit from core stabilization exercises throughout her due to her history with cauda equina and urinary retention. She lacks a home program for Short Term Goal (STG) Maddison is educated on a HEP for her for core stabilization for her pelvis. STG Duration 5 weeks [facility] Goal (LTG) Maddison is able to continue with core exercises throughtout her for stabilization of her bladder and SI joint. LTG Duration 12 weeks 3 Impairment urinary retention with self catheterization 6-7 times per day [facility]dc Goal (LTG) pt's termite helper goal is to improve her ability to independently empty her bladder and decrease use of the catheter. As of 08/11/22 pt is now voiding independently GOAL MET Goal met LTG Duration 8 weeks + 2 Impairment Decreased endurance of the pelvic floor Short Term Goal (STG) pt is able to sustain a pelvic floor contraction in supine x 10 seconds goal met STG Duration 5 weeks Adult Ministries Director Goal (LTG) pt is able to sustain a pelvic floor contraction in standing x 10 seconds pt to start practicing finding her pelvic floor standing LTG Duration 12 weeks 1 Impairment cauda equina syndrome with pelvic floor weakness Adult Ministries Director Goal (LTG) pt is able to strengthen her pelvic floor to improve support to her bladder. excellent progress and there is now a contraction on the left lateral wall of the levator ani with MMT 2/5 for the posterior wall and 3/5 posterior wall LTG Duration 8 weeks Assessment Summary Assessment Maddison continues to do really well. She is no longer using the catheter. She reports today she is 9 weeks . So far she is doing well despite nausea. She has a OBGYN and has had her first visit with her doctor. We discontinued biofeedback due to . Today time was spent on core exercises and positioning for . She has her next PT appointment 10/15/22 Physical Therapy Plan Frequency and Duration Frequency of Treatment 2x/Week Duration of treatment (weeks) 12 Plan of Care Start Date 10/01/22 Plan of Care End Date 12/24/22 Therapeutic Interventions Therapeutic Interventions Home Exercise Program, Neuromuscular Re-education, Patient/Caregiver Education, Self-Care/Home Management,Soft Tissue Mobilization, Therapeutic Exercises Next Visit Focus/Plan Next Note Type Treatment Note Next Visit Plan review all core exercises next visit and assess hip flexor length Plan of Care Dates Plan of Care Start Date 10/01/22 Plan of Care End Date 12/24/22 Electronically Signed by: Adriane Dickerson, PT 10/06/22 0824 If you are in agreement with this Plan of Care, please return a signed and dated copy. I have reviewed this Plan of Care and certify that the skilled therapy services above are required to meet the patient?s needs. Physician Signature Date Printed Name and Credentials Clinical Instructor Signature Printed Name and Credentials
--- NOTE | 2022-10-01 17:00 | PT.OTN ---
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) Retention of urine, unspecified (10/01/22) Physical Therapy Treatment Note PT-OP-A Visit Information Start: 06/23/22 09:21 Freq: Status: Active Protocol: Document 10/01/22 08:51 [facility] (Rec: 10/06/22 08:13 [facility] [id number]) Out-Patient Physical Therapy Visit Information Visit Information Visit Type Treatment Note Visit Start Time 09:45 Visit Stop Time 10:30 Total Visit Minutes 45 Visit Number 8 PT-OP-B Current Condition Start: 06/23/22 09:21 Freq: Status: Active Protocol: Document 06/23/22 10:30 [facility] (Rec: 06/23/22 12:24 [facility] [id number]) Current Condition History of Current Condition Onset Date January 2022 Current Complaints cauda equina syndrome with urinary retention, neurogenic bladder History of Current Condition 36 year old women who underwent a emergency L5-S1 laminectomy and microdiskectomy 02/02/22 due to saddle parathesia and inability to void. She is 3 months s/p surgery and currently she describes paresthesia over the left buttock and left vaginal wall, genitalia, and rectum. She does feel that paresthesia for the left buttock is improving since surgery. She is self- catheterizing to empty her bladder and uses the catheter 6-7 xms per day. She notes 2 weeks ago she was able to start voiding and she finds that if she has more than 500 cc's in her bladder she is able to independently void. She is not able to fully empty her bladder and reports she has a residual 200 cc's left after self voiding. She manages bowel function with softeners and magnesium. She denies c/o urinary leakage or bowel leakage. She reports low back pain as 3 /10 worse on the left side Treatment Goals Patient/Caregiver Goals pt would like pelvic floor assessment and core strengthening to help support both her back and her bladder Prior Functional Status Baseline Function- ADL's Independent Baseline Function- Mobility Independent Current Functional Impairments (Reported) Functional Limitations- Other neurogenic bladder, pt requires self catheterization to fully empty her bladder PT-OP-C Subjective Start: 06/23/22 09:21 Freq: Status: Active Protocol: Document 10/01/22 08:51 [facility] (Rec: 10/01/22 09:35 [facility] [id number]) OP-PT Subjective Patient Comments Patient Comments pt is 9 weeks , she is trying to work out 2 times per week, she has been doing band work and stretches, she is fully voiding on her own. She saw urology and is emptying fully for the most part. PT-OP-F Manual Assessment Start: 06/23/22 09:21 Freq: Status: Active Protocol: Document 06/23/22 10:30 [facility] (Rec: 06/23/22 13:33 [facility] [id number]) Manual Assessments Soft Tissue Assessment Soft Tissue Mobility Assessment with internal pelvic floor assessment there is atrophy of the left wall of the levator ani as compared to the right. No muscle guarding noted PT-OP-I Pelvic Floor Start: 06/23/22 09:21 Freq: Status: Active Protocol: Document 08/11/22 14:17 [facility] (Rec: 08/11/22 14:54 [facility] [id number]) Pelvic Floor Assessment Pelvic Clock Pelvic Clock Other palpable contraction now for all aspects of the levator ani , pt is unaware that her left side is liz but much improved contraction ability Contraction Ability Manual Muscle Testing Left 2 Manual Muscle Testing Right 3 Manual Muscle Testing Anterior 2 Manual Muscle Testing Posterior 3 Muscle Endurance (Seconds) 8 PT-OP-M Strength Start: 06/23/22 09:21 Freq: Status: Active Protocol: Document 06/23/22 17:09 [facility] (Rec: 06/23/22 17:10 [facility] [id number]) Trunk Strength Trunk Manual Muscle Testing Testing Position Supine Core Stabilization decreased activation of the transverse abdominal musculature PT-OP-Q Treatments Start: 06/23/22 17:16 Freq: Status: Active Protocol: Document 10/01/22 08:51 [facility] (Rec: 10/01/22 09:35 [facility] [id number]) Therapeutic Exercises Other Exercises Hip flexor Other Exercise Name 1.mod liyah w/ manual 2.on yoga ball (green) Side bilateral Bird dog Side bilateral khalif pose Other Exercise Name 1.neutral 2.w/side bend Side bilateral Comments rec back support and positions for baby as belly grows thread the needle Side bilateral Comments R tighter than L wag the tail Side bilateral quadruped TA Reps/Minutes x 10 reps Self-Care/Home Management Treatment Education Patient Education Home Exercise Program PT-OP-T Assessment and Plan Start: 06/23/22 09:21 Freq: Status: Active Protocol: Document 10/01/22 08:51 [facility] (Rec: 10/06/22 08:13 [facility] [id number]) Physical Therapy Assessment Goals 4 Impairment pt is 9 weeks and will benefit from core stabilization exercises throughout her due to her history with cauda equina and urinary retention. She lacks a home program for Short Term Goal (STG) Maddison is educated on a HEP for her for core stabilization for her pelvis. STG Duration 5 weeks Nursing Home Goal (LTG) Maddison is able to continue with core exercises throughtout her for stabilization of her bladder and SI joint. LTG Duration 12 weeks 3 Impairment urinary retention with self catheterization 6-7 times per day Nursing Home Goal (LTG) pt's predatory animal exterminator goal is to improve her ability to independently empty her bladder and decrease use of the catheter. As of 08/11/22 pt is now voiding independently GOAL MET Goal met LTG Duration 8 weeks + 2 Impairment Decreased endurance of the pelvic floor Short Term Goal (STG) pt is able to sustain a pelvic floor contraction in supine x 10 seconds goal met STG Duration 5 weeks Nursing Home Goal (LTG) pt is able to sustain a pelvic floor contraction in standing x 10 seconds pt to start practicing finding her pelvic floor standing LTG Duration 12 weeks 1 Impairment caudia equida syndrome with pelvic floor weakness Nursing Home Goal (LTG) pt is able to strengthen her pelvic floor to improve support to her bladder. excellent progress and there is now a contraction on the left lateral wall of the levator ani with MMT 2/5 for the pateral wall and 3/5 posterior wall LTG Duration 8 weeks Assessment Summary Assessment Maddison continues to do really well. She is no longer using the catheter. She reports today she is 9 weeks . So far she is doing well despite nausea. She has a OBGYN and has had her first visit with her doctor. We discontinued biofeedback due to . Today time was spent on core exercises and positioning for . She has her next PT appointment 10/15/22 Physical Therapy Plan Frequency and Duration Frequency of Treatment 2x/Week Duration of treatment (weeks) 12 Plan of Care Start Date 10/01/22 Plan of Care End Date 12/24/22 Therapeutic Interventions Therapeutic Interventions Home Exercise Program, Neuromuscular Re-education, Patient/Caregiver Education, Self-Care/Home Management,Soft Tissue Mobilization, Therapeutic Exercises Next Visit Focus/Plan Next Note Type Treatment Note Next Visit Plan review all core exercises next visit and assess hip flexor length
--- NOTE | 2022-11-24 10:56 | PT.OPDS ---
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) Retention of urine, unspecified (10/01/22) Visit Care Team Role Provider Type Jeanette Wilhelm PA-C Family Provider Advanced Bending Roll Hand Primary Care Provider Specialty: Medical Address: [address] [place] [address], [id number] Email: Luis Deng MD Attending Provider Physician Referring Provider Specialty: Urology Address: [address] [place] [address], [id number] Email: Visit Number Visit Number 8 Discharge Summary PT-OP-B Current Condition Start: 06/23/22 09:21 Freq: Status: Active Protocol: Document 06/23/22 10:30 [facility] (Rec: 06/23/22 12:24 [facility] [id number]) Current Condition History of Current Condition Onset Date January 2022 Current Complaints cauda equina syndrome with urinary retention, neurogenic bladder History of Current Condition 36 year old women who underwent a emergency L5-S1 laminectomy and microdiskectomy 02/02/22 due to saddle parathesia and inability to void. She is 3 months s/p surgery and currently she describes paresthesia over the left buttock and left vaginal wall, genitalia, and rectum. She does feel that paresthesia for the left buttock is improving since surgery. She is self- catheterizing to empty her bladder and uses the catheter 6-7 xms per day. She notes 2 weeks ago she was able to start voiding and she finds that if she has more than 500 cc's in her bladder she is able to independently void. She is not able to fully empty her bladder and reports she has a residual 200 cc's left after self voiding. She manages bowel function with softeners and magnesium. She denies c/o urinary leakage or bowel leakage. She reports low back pain as 3 /10 worse on the left side Treatment Goals Patient/Caregiver Goals pt would like pelvic floor assessment and core strengthening to help support both her back and her bladder Prior Functional Status Baseline Function- ADL's Independent Baseline Function- Mobility Independent Current Functional Impairments (Reported) Functional Limitations- Other neurogenic bladder, pt requires self catheterization to fully empty her bladder PT-OP-C Subjective Start: 06/23/22 09:21 Freq: Status: Active Protocol: Document 10/01/22 08:51 [facility] (Rec: 10/01/22 09:35 [facility] [id number]) OP-PT Subjective Patient Comments Patient Comments pt is 9 weeks , she is trying to work out 2 times per week, she has been doing band work and stretches, she is fully voiding on her own. She saw urology and is emptying fully for the most part. PT-OP-F Manual Assessment Start: 06/23/22 09:21 Freq: Status: Active Protocol: Document 06/23/22 10:30 [facility] (Rec: 06/23/22 13:33 [facility] [id number]) Manual Assessments Soft Tissue Assessment Soft Tissue Mobility Assessment with internal pelvic floor assessment there is atrophy of the left wall of the levator ani as compared to the right. No muscle guarding noted PT-OP-I Pelvic Floor Start: 06/23/22 09:21 Freq: Status: Active Protocol: Document 08/11/22 14:17 [facility] (Rec: 08/11/22 14:54 [facility] [id number]) Pelvic Floor Assessment Pelvic Clock Pelvic Clock Other palpable contraction now for all aspects of the levator ani , pt is unaware that her left side is liz but much improved contraction ability Contraction Ability Manual Muscle Testing Left 2 Manual Muscle Testing Right 3 Manual Muscle Testing Anterior 2 Manual Muscle Testing Posterior 3 Muscle Endurance (Seconds) 8 PT-OP-M Strength Start: 06/23/22 09:21 Freq: Status: Active Protocol: Document 06/23/22 17:09 [facility] (Rec: 06/23/22 17:10 [facility] [id number]) Trunk Strength Trunk Manual Muscle Testing Testing Position Supine Core Stabilization decreased activation of the transverse abdominal musculature PT-OP-T Assessment and Plan Start: 06/23/22 09:21 Freq: Status: Active Protocol: Document 11/24/22 10:54 [facility] (Rec: 11/24/22 10:55 [facility] [id number]) Physical Therapy Assessment Assessment Summary Assessment I spoke with Maddison on the phone today and she has had a miscarriage with a D and C in October 2022. At this time she is feeling like she needs a break from all appointments. She would like to try again for and will follow up with her OBGYN should she need any further physical therapy. She will be discharged at this time Physical Therapy Plan Discharge Physical Therapy Discharge Reasons Patient Request
== END 2022-12-04 08:56 ==
LOC: PHYS 08:45
PROVIDERS: Family Provider Physician Assistant; PCP Physician Assistant; Referring Provider Specialist; Visit Provider Specialist
DX: G83.4 Cauda equina syndrome (principal); N31.2 Flaccid neuropathic bladder, not elsewhere classified; R33.9 Retention of urine, unspecified
CPT/HCPCS: 97110; 97112; 97140; 97161; 97535

== ENCOUNTER → 2022-10-02 16:01 | Outpatient (CLI) | payer OTHER, SELFPAY ==
[2022-02-02 16:13] VITALS: BMI 29.7
[2022-10-02 16:56] LABS: Add Manual Diff / Slide Review NO; Basophils Absolute Auto 100 /uL (0-100); Basophils Percent Auto 0.4 % (0-2); Eosinophils Absolute Auto 100 /uL (0-450); Eosinophils Percent Auto 0.5 % (2-4); Hematocrit 37.2 % (36-46); Hemoglobin 13.2 g/dL (12.0-16.0); Lymphocytes Absolute Auto 2600 /uL (1100-4500); Lymphocytes Percent Auto 18.3 % (25-40); Mean Corpuscular HGB Conc 35.3 % (30-36); Mean Corpuscular Hemoglobin 31.3 PG (26-34); Mean Corpuscular Volume 88.6 fL (80-100); Monocytes Absolute Auto 800 /uL (0-900); Monocytes Percent Auto 5.5 % (3-14); Neutrophils Absolute Auto 10800 /uL (1500-7000); Neutrophils Percent Auto 75.3 % (50-75); Platelet Count 368 X10^3/uL (150-400); Red Cell Distribution Width 11.7 % (11.6-14.8); White Blood Cell Count 14.4 X10^3/uL (4.5-11.0)
[2022-10-02 18:40] LABS: Free T3, Triiodothyronine Free 7.11 pg/mL (2.77-5.27); Free T4, Direct Thyroxine 1.47 ng/dL (0.78-2.19)
[2022-10-02 18:58] LABS: Thyroid Stimulating Hormone < 0.015 uIU/mL (0.47-4.68)
[2022-10-02 19:15] LABS: HIV 1 & 2 Ab/Ag 4th Gen Combo NEGATIVE (NEGATIVE); Hep C Virus Ab w/Reflex Quant NEGATIVE s/c (NEGATIVE); Hepatitis B Surface Antigen NEGATIVE s/c (NEGATIVE); Rubella Antibody IgG 8.8 IU/mL (>15)
[2022-10-03 04:27] LABS: RPR Screen Non Reactive (Non Reactive)
[2022-10-03 09:09] LABS: Varicella IgG Antibody 1670 index (Immune >165)
== END ==
PROVIDERS: Family Provider Physician Assistant; PCP Physician Assistant; Referring Provider Obstetrics & Gynecology; Visit Provider Obstetrics & Gynecology
DX: Z34.01 Encounter for supervision of normal first pregnancy, first trimester (principal); E05.90 Thyrotoxicosis, unspecified without thyrotoxic crisis or storm
CPT/HCPCS: 36415; 80055; 84439; 84443; 84481; 86787; 86803; 86850; 86900; 86901; 87389

== ENCOUNTER 2022-10-17 19:10 | Emergency (ER) | payer OTHER, SELFPAY ==
[2022-02-02 16:13] VITALS: BMI 29.7
[2022-10-17] VITALS (14 sets, daily range): BP systolic 95–137; BP diastolic 56–71; PULSE 80–96; RESP 18; TEMP 36.9; O2SAT 96–99; BMI 29.7
--- NOTE | 2022-10-17 19:32 | ED.ABDPAIN ---
HPI - Abdominal Pain General Chief Complaint: Abdominal Pain Stated Complaint: 12 wk has not had bm in 7 days Time Seen by Provider: 10/17/22 19:25 Source: patient Mode of arrival: Ambulatory History of Present Illness HPI narrative: 37-year-old female nonsmoker with history of cauda equina and lumbar surgery last fall is a had about 12 weeks and presents with lower abdominal cramping and no bowel movements in the past 7 days. She states that she has been nauseated with her and unable to keep his much food and drink down as normal Related Data Home Medications Medication Instructions Recorded Confirmed polyethylene glycol 3350 17 17 g PO DAILY PRN constipation 09/18/22 09/23/22 gram/dose oral powder (Miralax) prenat.vits,mayur,skf-cknw-pyllt 1 tab PO DAILY 09/18/22 09/23/22 Previous Rx's Medication Instructions Recorded ondansetron 4 mg disintegrating 4 mg PO Q6H PRN nausea and 10/09/22 tablet vomiting #20 tabs Allergies Allergy/AdvReac Type Severity Reaction Status Date / Time No Known Drug Allergies Allergy Verified 09/23/22 11:05 Review of Systems Review of Systems Narrative: GENERAL: Denies chills, fatigue, malaise, fever, sweats. HEENT: Denies sinus pain, ear pain, sore throat, difficulty swallowing, dizziness. RESPIRATORY: Denies dyspnea, cough, wheezing, hemoptysis, sputum. CARDIOVASCULAR: Denies chest pain, palpitations, orthopnea, edema, GASTROINTESTINAL: See HPI : Denies dysuria, frequency, incontinence, hematuria, urinary retention. MUSCULOSKELETAL: denies weakness, joint pain, or bony pain SKIN: Denies rash, skin lesions, or other NEUROLOGIC: Denies weakness, headache, numbness, change in speech, confusion, seizures, incoordination. PSYCHIATRIC: No concerning psychosocial issues. 12 point review of systems is negative except for those stated above Patient History Medical History (Updated 10/18/22 @ 02:55 by Tom Echevarria DO) Acute left lumbar radiculopathy Acute urinary retention Cauda equina syndrome Cauda equina syndrome with neurogenic bladder Flaccid bladder Gait disturbance History of urinary retention Hx of thyroid disease Ovarian cyst Urinary retention Surgical History (Updated 09/18/22 @ 09:13 by Radha Jin RN) Hx of laminectomy (~2021) [place] teeth extracted (~2006) Family History (Updated 09/18/22 @ 09:19 by Radha Jin RN) Mother UTI (urinary tract infection) Rheumatoid arthritis Father Spinal disease Grandmother Colon cancer Grandfather Unable to control bladder Grandfather Heart attack Grandmother No problems noted. Family/Other Heart failure Family/Other Cancer Brother ADHD Social History marital status: number of children: 0 household members: spouse lives independently: Yes caregiver/support person: Yes housing: house pets and animals: Yes (2 cats) education level: college (bachelor's degree) occupational status: employed (works from home) current occupational exposures/hazards: No special rick needs: No travel history: recent ([employer], [place]) seatbelt use: always helmet use: Yes water heater temp set < 120 deg: Yes working smoke detector in home: Yes fire extinguisher in home: Yes carbon monox detector in home: Yes firearms in home: Yes firearms unloaded and locked: Yes do you feel safe at home: Yes Smoking Status: Never smoker second hand exposure: No alcohol intake: former (1-2/week when not ) substance use type: does not use during the past year weight has: remained stable well-balanced diet: daily or most days daily servings fruits/ve or more times/day caffeine: Yes (1 cup coffee in AM) Type(s) of exercise: walking, weight lifting and other (physical therapy, hiking) frequency: daily Smoking Status: Never smoker alcohol intake frequency: holidays/special occasions only Substance Use Type: does not use Exam Narrative Exam Narrative: GENERAL: [37] year old patient appears stated age. Well-developed patient, in mild distress. HEAD: Atraumatic. Normocephalic. EYES: Pupils equal round and reactive. Extraocular motions intact. No scleral icterus. No injection or drainage. ENT: Nose without bleeding, purulent drainage. Throat without erythema, tonsillar hypertrophy or exudate. Airway patent. NECK: Trachea midline. Non tender CARDIOVASCULAR: Regular rate and rhythm without murmurs, gallops, or rubs. RESPIRATORY: Clear to auscultation. Breath sounds equal bilaterally. No wheezes, rales, or rhonchi. GASTROINTESTINAL: Abdomen soft, non-tender, nondistended. RECTAL: firm stool in rectal vault, large amount manually removed by myself with patient permission and female nursing performance improvement manager at the bedside EXTREMITIES: No edema or joint tenderness. BACK: Nontender without deformity or crepitance. No flank tenderness. NEURO: AOx3. SKIN: No rash or erythema of visible areas Initial Vital Signs Initial Vital Signs: Vital Signs Temperature 98.4 F 10/17/22 19:18 Pulse Rate 91 H 10/17/22 19:18 Respiratory Rate 18 10/17/22 19:18 Blood Pressure 137/67 10/17/22 19:18 Pulse Oximetry 99 10/17/22 19:18 Oxygen Delivery Method Room Air 10/17/22 19:18 Course Orders Ordered: ED Orders 10/17/22 21:33 Urinalysis and Microscopic Stat 10/17/22 23:07 US OB <= 14 weeks fetus Stat 10/17/22 23:20 Basic Metabolic Panel Stat Complete Blood Count AUTO DIFF Stat Discontinued Medications Bisacodyl (Bisacodyl 10 Mg Supp) 10 mg NV NOW ONE Stop: 10/17/22 19:34 Last Admin: 10/17/22 20:47 Dose: Not Given Documented By: MADINA Sodium Chloride (Normal Saline 0.9%) 1,000 mls @ 1,000 mls/hr IV BOLUS ONE Stop: 10/18/22 00:06 Last Infusion: 10/18/22 00:45 Dose: 0 mls/hr Documented By: Admin: 10/17/22 23:37 Dose: 1,000 mls/hr Documented By: MADINA Consultations Consultation #1: discussed with Dr. Epperson (optical effects layout person OB). DC, close follow up, likely D&C on Wednesday or . Return precautions including bleeding through more than a pad per hour would prompt a return Vital Signs Vital signs: Vital Signs - 8 hr 10/17/22 22:30 10/17/22 22:31 10/17/22 22:31 Pulse Rate 94 H 94 H Respiratory Rate Blood Pressure 96/58 L Pulse Oximetry 98 98 Oxygen Delivery Method 10/17/22 22:39 10/17/22 22:39 10/17/22 23:00 Pulse Rate 96 H Respiratory Rate 18 Blood Pressure 103/65 102/57 L Pulse Oximetry 97 Oxygen Delivery Method 10/17/22 23:00 10/17/22 23:30 10/17/22 23:41 Pulse Rate 87 84 Respiratory Rate Blood Pressure 100/64 Pulse Oximetry 98 97 Oxygen Delivery Method 10/17/22 23:41 10/18/22 00:00 10/18/22 00:00 Pulse Rate 80 81 Respiratory Rate Blood Pressure 92/55 L Pulse Oximetry 97 98 Oxygen Delivery Method 10/18/22 00:30 10/18/22 00:30 10/18/22 00:39 Pulse Rate 86 Respiratory Rate Blood Pressure 96/55 L 101/60 Pulse Oximetry 96 Oxygen Delivery Method 10/18/22 00:39 10/18/22 01:54 10/18/22 01:55 Pulse Rate 86 Respiratory Rate Blood Pressure 98/55 L Pulse Oximetry 97 95 Oxygen Delivery Method Room Air 10/18/22 01:55 10/18/22 02:00 10/18/22 02:00 Pulse Rate 95 H 91 H Respiratory Rate Blood Pressure 99/53 L Pulse Oximetry 95 95 Oxygen Delivery Method 10/18/22 02:33 Pulse Rate 91 H Respiratory Rate 18 Blood Pressure Pulse Oximetry 98 Oxygen Delivery Method MDM - Abdominal Pain Lab Data 10/17/22 23:20 10/17/22 23:20 Labs: Lab Results 10/17/22 10/17/22 10/17/22 Range/Units 21:33 23:20 23:20 WBC 19.4 H (4.5-11.0) X10^3/uL RBC 4.01 (4.0-5.2) X10^6/uL Hgb 12.5 (12.0-16.0) g/dL Hct 35.0 L (36-46) % MCV 87.4 (80-100) fL MCH 31.2 (26-34) PG MCHC 35.7 (30-36) % RDW 11.8 (11.6-14.8) % Plt Count (150-400) X10^3/uL Neut % (Auto) Not Reportable Lymph % (Auto) Not Reportable Dent % (Auto) Not Reportable Eos % (Auto) Not Reportable Baso % (Auto) Not Reportable Lymph # (Auto) Not Reportable [place] # (Auto) Not Reportable Baso # (Auto) Not Reportable Total Counted 100 Seg Neutrophils % 87.0 H (38-70) % Band Neutrophils % 1.0 L (3-7) % Lymphocytes % (Manual) 9.0 L (25-45) % Monocytes % (Manual) 3.0 (2-11) % Neutrophils # (Manual) 26394 H (2476-1094) /uL Platelet Estimate Adequate on smear RBC Morphology Normal morphology Sodium 129 L (137-145) mmol/L Potassium 3.9 (3.4-5.1) mmol/L Chloride 103 (98-107) mmol/L Carbon Dioxide 19 L (22-32) mmol/L BUN 10 (7-17) mg/dL Creatinine 0.35 L (0.52-1.04) mg/dL Estimated GFR > 60 (>60) mL/min BUN/Creatinine Ratio 28.6 H (6-22) Glucose 99 (70-100) mg/dL Calcium 8.4 (8.4-10.2) mg/dL Urine Color Yellow Urine Appearance Clear Urine pH 6.0 (4.5-8.0) Ur Specific [place] >=1.030 H (1.000-1.035) Urine Protein Negative (Negative) Urine Glucose (UA) Negative (Negative) g/dL Urine Ketones 1+ H (NEGATIVE) Urine Occult Blood Negative (Negative) Urine Nitrate Negative (Negative) Urine Bilirubin Negative (NEGATIVE) Urine Urobilinogen 1.0 (0.2) E.U./dL Ur Leukocyte Esterase Negative (NEGATIVE) Urine RBC 0-1/hpf (0-5/HPF) Urine WBC 0-1/hpf (0-5/HPF) Ur Squamous Epith Cells 1-5 /hpf (0-5/HPF) Calcium Oxalate Crystal Occasional H Urine Bacteria Occasional (0-1) (None) Ur Culture Indicated? Cult not indicated Point of care testing: Urine Dip Bedside Urine Glucose Negative Bedside Urine Bilirubin - Negative Bedside Urine Ketone + 15 Urine Specific [place] 1.03 Bedside Urine Occult Blood - Negative Bedside Urine pH 6 Bedside Urine Protein - Negative Bedside Urine Urobilinogen - Negative Bedside Urine Nitrite - Negative Bedside Urine Leukocytes - Negative Esterase MDM Narrative Medical decision making narrative: CC: 37-year-old female crampy abdominal pain and decreased bowel movements Complicating co-morbidities: Prior cauda equina, Data collected from: Patient Medical records reviewed: Prior notes reviewed in our EMR Differential considered, but not limited to: Constipation versus bowel obstruction versus cauda equina versus complication of versus other Exam documented above, pertinent findings include: Heart rate regular lungs clear, abdomen soft with generalized lower tenderness, bowel sounds present, rectal exam with large amount of firm stool in rectal vault Lab Test results independently reviewed as above. Pertinent findings: No significant abnormal findings requiring intervention Independently reviewed EKG as above Imaging studies independently reviewed: Ob ultrasound demonstrates intrauterine demise Consultations: Discussed with Dr. Epperson, see details above Treatments: Patient given fluids, enema with minimal improvements Discussion: at 12 weeks presents with decreased bowel movements and crampy abdominal pain is found to be significantly constipated but also presents with intrauterine demise. She has no vaginal bleeding or discharge it shows no signs of sepsis. Patient manually disimpacted, feels significant improvement, we will be in close contact with OB for help moving forward with intrauterine demise. Disposition: see below, along with detailed discharge instructions that have been reviewed with patient as well as indications for ED re-evaluation and additional outpatient follow up Discharge Plan Departure Patient Disposition: Home Clinical Impression: IUFD (intrauterine ), Constipation Instructions: DI for Constipation Activity Restrictions/Additional Instructions: *You have been diagnosed with [intrauterine demise. As we discussed the ultrasound obtained tonight does not show any cardiac activity. I have spoken with Dr. Epperson and she will help you move forward with this. *What to do: *Please continue to take your regular medications as directed. *Please follow up with Dr. Epperson as soon as possible, call Wednesday morning for an appointment. Let them know you were seen in the Emergency Department and that we ask that you be seen in follow up. We will electronically transmit a record of today's note *Return to Emergency Department if you should have any new, worsening or concerning symptoms, such as [fever greater than 101 F, shaking chills, worsening pain, persistent vomiting or other bothersome symptoms] *You have been diagnosed with [ abdominal pain due to constipation ] *What to do: *Take over the counter medications as directed: 1. Metamucil - is a bulk forming laxative and adds fiber 2. Colace - softens your stool 3. Dulcolax suppository - stimulates your bowels *Follow up with your primary care provider in 2-3 days, call for appointment *Return to ER if you should have any new, worsening or concerning symptoms *Drink plenty of water and eat foods high in fiber *Stay as active as you can as this helps move your bowels as well Prescriptions: No Action ondansetron 4 mg tablet,disintegrating 4 mg PO Q6H PRN (Reason: nausea and vomiting) Qty: 20 0RF prenat.vits,mayur,tzw-pulz-ouhes Tablet 1 tab PO DAILY polyethylene glycol 3350 [Miralax] 17 gram/dose powder 17 g PO DAILY PRN (Reason: constipation) Referrals: Lakisha Epperson MD [Physician] - Jeanette Wilhelm PA-C [Primary Care Provider] - Stand Alone Forms: Patient Portal/API
--- NOTE | 2022-10-17 21:39 | PC.NURSE ---
Addendum entered by Sarah Tyler R.N. 10/18/22 00:46: Pt reports being lightheaded again. Provider to be made aware. Original Note: Pt had very small loose BM after enema administration. Pt reports being lightheaded. Vitals rechecked. Provider made aware.
[2022-10-17 21:53] LABS: Appearance Urine UA CLEAR; Bilirubin Urine UA NEGATIVE (NEGATIVE); Color Urine UA YELLOW; Glucose Urine UA NEGATIVE (Negative); Ketones Urine UA 1+ (NEGATIVE); Leukocyte Esterase Urine UA NEGATIVE (NEGATIVE); Nitrite Urine UA NEGATIVE (Negative); Occult Blood Urine UA NEGATIVE (Negative); Protein Urine UA NEGATIVE (Negative); Specific Gravity Urine UA >=1.030 (1.000-1.035)
[2022-10-17 21:59] LABS: Bacteria Urine Occasional (0-1); RBC Urine 0-1/HPF (0-5/HPF); Squamous Epithelial Cell Urine 1-5 /HPF (0-5/HPF); WBC Urine 0-1/HPF (0-5/HPF)
[2022-10-17 22:00] LABS: Calcium Oxalate Crystals Urine Occasional; Culture Indicated Urine Cult Not Indicated
--- NOTE | 2022-10-17 23:07 | DI.US.S_ITS ---
PROCEDURE: US OB <= 14 WEEKS FETUS INDICATIONS: CRAMPING OUTSIDE/PRIOR DATING DATA: Last menstrual period (LMP): 07/25/22 LMP-based estimated date of delivery (DAQUAN): 05/01/23. First dating scan (date and location): 09/23/22. Estimated date of delivery (DAQUAN) from first dating scan: 05/01/23. TECHNIQUE: Real-time scanning was performed of the fetus and maternal pelvic organs, with image documentation. Endovaginal scanning was also performed to better visualize the fetus and maternal ovaries. COMPARISON: [facility], , OB <= 14 WEEKS FETUS, 09/23/2022, 11:44. FINDINGS: Embryo: 5.8 cm crown-rump length. Heart rate: No heart rate observed. Maternal organs: Ovaries not well seen. IMPRESSION: demise, 12 week 2 day gestational age by crown rump length of 5.8 cm. We strive to produce accurate, complete, and clear reports of imaging services. To assist us in improving patient care, this report was composed using standard report templates and voice recognition software. Therefore, it may contain abnormal punctuation, insertions and/or omissions. Occasional wrong-word or sound-alike substitutions may occur. Though we review the report and make efforts to correct it, we do recommend that the report be read carefully in proper context to recognize any text inaccuracies. Dictated by: Eddie Mcduffie M.D. on 10/18/2022 at 0:23 Approved by: Eddie Mcduffie M.D. on 10/18/2022 at 0:27
[2022-10-17] MEDS: SODIUM CHLORIDE 0.9% 1,000 ML 1000 ML IV (23:37)
[2022-10-17 23:43] LABS: BUN Creatinine Ratio 28.6 (6-22); Blood Urea Nitrogen 10 mg/dL (7-17); Calcium 8.4 mg/dL (8.4-10.2); Carbon Dioxide 19 mmol/L (22-32); Chloride 103 mmol/L (98-107); Estimated Glomerular Filt Rate > 60 mL/min (>60); Glucose 99 mg/dL (70-100); HEMOLYSIS 36 (0-50); Potassium 3.9 mmol/L (3.4-5.1); Sodium 129 mmol/L (137-145)
[2022-10-17 23:50] LABS: Hemoglobin 12.5 g/dL (12.0-16.0); Mean Corpuscular HGB Conc 35.7 % (30-36); Mean Corpuscular Hemoglobin 31.2 PG (26-34); Mean Corpuscular Volume 87.4 fL (80-100); Red Blood Cell Count 4.01 X10^6/uL (4.0-5.2); Red Cell Distribution Width 11.8 % (11.6-14.8); White Blood Cell Count 19.4 X10^3/uL (4.5-11.0)
[2022-10-17 23:51] LABS: Add Manual Diff / Slide Review YES
[2022-10-17 23:56] LABS: Neutrophils Absolute Manual 17072 /uL (3000-5900); Total Cells Counted 100
[2022-10-17 23:58] LABS: Platelet Estimate Adequate on smear
[2022-10-17 23:59] LABS: RBC Morphology Normal Morphology
[2022-10-18] VITALS (7 sets, daily range): BP systolic 92–101; BP diastolic 53–60; PULSE 81–95; RESP 18; O2SAT 95–98
== END 2022-10-18 03:03 | disposition home or self-care (01) ==
PROVIDERS: Emergency Provider Emergency Medicine; Family Provider Physician Assistant; PCP Physician Assistant
DX: O02.1 Missed abortion (principal); K59.00 Constipation, unspecified; R10.9 Unspecified abdominal pain; Z3A.12 12 weeks gestation of pregnancy
CPT/HCPCS: 36415; 51798; 76801; 76817; 80048; 81001; 81003; 85007; 85025; 96360; 99284

== ENCOUNTER 2022-10-19 11:18 | Day surgery (SDC) | payer OTHER, SELFPAY ==
[2022-02-02 16:13] VITALS: BMI 29.7
[2022-10-19] VITALS (9 sets, daily range): BP systolic 95–112; BP diastolic 50–74; PULSE 66–87; RESP 11–17; TEMP 36.5–36.7; O2SAT 92–100; BMI 26.6
--- NOTE | 2022-10-19 | PATH_ITS ---
[facility] Accession Number: [id number] No. of containers..01 Tissue . 01 Material submitted: . product of conception - PRODUCTS OF CONCEPTION . 01 Diagnosis: Uterine Contents: tissue and immature chorionic villi with hydropic degeneration (products of conception). MRV 10/27/2022 1543 Local . 01 Electronically signed: . China Costa MD, Pathologist NPI- [id number] . 01 Gross description: . The specimen is received in formalin labeled with the patient's name, , and products of conception consist of multiple fragments of pink-day soft tissue and blood clots aggregating to 8.8 x 6.3 x 2.2 cm. Portions of tissue are seen with a foot length of 0.7 cm. Telephone Ad Taker sections of possible villous tissue are submitted in cassettes A1-A2. ([id number]) /MRV 10/23/2022 1824 Local . 01 Pathologist provided ICD-10: O03.9 . 01 CPT . 848632 Specimen Comment: A courtesy copy of this report has been sent to [phone] Performed at: 01 [facility] [address] [place] [address] [address], [place], [place] [id number] MD Hernan Cao MD Phone: [phone]
--- NOTE | 2022-10-19 12:07 | SUR.OPER ---
Lithotomy on padded OR bed, head on pillow, arms secured on padded arm boards at <90 degrees abduction. Legs secured in padded yellow fins stirrups.
--- NOTE | 2022-10-19 12:11 | SUR.OPER ---
Lithotomy on padded OR bed, head on pillow, arms secured on padded arm boards at <90 degrees abduction. Legs secured in padded yellow fins stirrups.
--- NOTE | 2022-10-19 12:30 | PM.GYNHP.1 ---
History of Present Illness History of Present Illness Reason for admission: missed (At 12 weeks) Narrative: Maddison Badillo is a 37 year old female 1 para 0 at 12+ 3 weeks' gestation with a missed Patient presented to the emergency department with severe constipation. They did a transvaginal ultrasound which showed no heart motion. [facility] Medical History (Updated 10/18/22 @ 02:55 by Tom Echevarria DO) Acute left lumbar radiculopathy Acute urinary retention Cauda equina syndrome Cauda equina syndrome with neurogenic bladder Flaccid bladder Gait disturbance History of urinary retention Hx of thyroid disease Ovarian cyst Urinary retention Surgical History (Updated 09/18/22 @ 09:13 by Radha Jin RN) Hx of laminectomy (~2021) [place] teeth extracted (~2006) Family History (Updated 09/18/22 @ 09:19 by Radha Jin RN) Mother UTI (urinary tract infection) Rheumatoid arthritis Father Spinal disease Grandmother Colon cancer Grandfather Unable to control bladder Grandfather Heart attack Grandmother No problems noted. Family/Other Heart failure Family/Other Cancer Brother ADHD Social History marital status: number of children: 0 household members: spouse lives independently: Yes caregiver/support person: Yes housing: house pets and animals: Yes (2 cats) education level: college (bachelor's degree) occupational status: employed (works from home) current occupational exposures/hazards: No special rick needs: No travel history: recent ([facility], [place]) seatbelt use: always helmet use: Yes water heater temp set < 120 deg: Yes working smoke detector in home: Yes fire extinguisher in home: Yes carbon monox detector in home: Yes firearms in home: Yes firearms unloaded and locked: Yes do you feel safe at home: Yes Smoking Status: Never smoker second hand exposure: No alcohol intake: former substance use type: does not use during the past year weight has: remained stable well-balanced diet: daily or most days daily servings fruits/ve or more times/day caffeine: Yes (1 cup coffee in AM) Type(s) of exercise: walking, weight lifting and other (physical therapy, hiking) frequency: daily Meds Home Medications and Allergies Home Medications Medication Instructions Recorded Confirmed Type polyethylene glycol 3350 17 17 g PO DAILY PRN constipation 09/18/22 10/19/22 History gram/dose oral powder (Miralax) prenat.vits,mayur,uof-prvv-mtvyq 1 tab PO DAILY 09/18/22 10/19/22 History ondansetron 4 mg disintegrating 4 mg PO Q6H PRN nausea and 10/09/22 10/19/22 Rx tablet vomiting #20 tabs Allergies Allergy/AdvReac Type Severity Reaction Status Date / Time No Known Drug Allergies Allergy Verified 10/19/22 11:31 Exam Vital Signs (past 8 hours): - 10/19/22 11:56 Temperature 98.0 F Pulse Rate 76 Respiratory Rate 17 Blood Pressure 103/72 Pulse Oximetry 92 Oxygen Delivery Method Room Air Oxygen Delivery Method Room Air Narrative Exam Narrative: HEENT: No thyromegaly, no anterior cervical or supraclavicular lymphadenopathy. Lungs:Clear to auscultation bilaterally, no wheezes. Cardiovascular: Regular rate and rhythm, no murmurs, rubs, or gallops. Abdomen: No scars. No hepatosplenomegaly. No masses palpable. External genitalia: Deferred Vagina: Deferred Cervix: Deferred Bimanual exam: Deferred Extremities: No edema Bedside ultrasound: Intrauterine gestational sac with a fetus consistent with 12 weeks. No heart motion visualized. Suggestion of increased nuchal fold. Assessment & Plan Assessment & Plan narrative: Assessment: 37-year-old 1 para 0 at 12+ 3 weeks' gestation with a missed Plan: Suction D&C The risks, benefits, and alternatives to the procedure were explained to the patient. The risks including bleeding, infection, and uterine perforation. She understands these risks and agrees to proceed. A full par Q was held and consent form was signed. Consent and paperwork filled out to send tissue for genetic testing. Time Spent With Patient Time with patient: 30 to 49 minutes with 50% spent counseling/coordinating care
--- NOTE | 2022-10-19 12:33 | PM.PREOP ---
Pre-operative Note COVID-19 Criteria for continued procedure: Non-surgical alternatives not available or appropriate per current SOC Interval Note History & Physical reviewed/Exam performed by Physician: Yes Changes to H&P: No H&P completed within 30 days and has changed as indicated here:: 10/19/22
[2022-10-19] MEDS: CEFAZOLIN 2 GM/100 ML PREMIX 100 ML IV (13:01)
--- NOTE | 2022-10-19 13:25 | P.OP_ITS ---
Operative Date/Time/Diagnoses Date of procedure: 10/19/22 Time of procedure: 13:25 Pre-op diagnosis: Missed at 12 weeks Post-op diagnosis: same Procedure & Clinicians Procedure: Procedures Operation Date: 10/19/22 12:15 Actual Procedure Side Surgeon dustin Epperson MD Indications: Missed at 12 weeks Surgeon: Lakisha Epperson Anesthesia Type: General (LMA) Operative Notes Findings: 12 week size anteverted uterus Large amount of products conception including fetus Closure Type: not applicable Specimen(s): products of conception Estimated blood loss (mL): 100 Blood products transfused: none Procedure in detail: After informed consent was obtained, the patient was taken to the operating room where she was placed in the dorsal supine position. After adequate LMA general anesthesia was achieved, she was placed in the dorsal lithotomy position, and prepped and draped in the usual sterile fashion. A bivalve speculum was placed into the vagina and the anterior lip of the cervix was grasped with a single- tooth tenaculum. The cervical os was easily dilated to the #10 Hegar dilator. The #10 suction curette passed easily into the endometrial cavity. Several passes with suction revealed a large amount of tissue and fluid. Some of it came to the cervical os. Using the polyp forceps a large amount of placental tissue and tissue was removed. Several more passes with suction revealed tissue and blood. The suction curette was removed from the uterus. Gentle sharp curettage was performed. Using the # 8 Hegar dilator several more passes with suction revealed blood only. The single-tooth tenaculum was removed from the anterior lip of the cervix. There was a small amount of bleeding noted from a tear in the anterior cervix. A [id number] suture with 2-0 chromic was placed for hemostasis. The bivalve speculum was removed from the vagina. Bimanual massage was performed and the uterus contracted well to a 10 week size anteverted uterus. Sponge, lap, and instrument counts were correct x2. The patient tolerated the procedure well, and was taken to PACU in stable condition. Complications: none Post-operative Condition: stable Disposition: PACU Plan for aftercare: Home after recovery
[2022-10-19] MEDS: fentaNYL 100 MCG/2 ML INJ IV ×3 (13:39→14:14)
[2022-10-19] MEDS: OXYCODONE/ACETAMINOPHEN 5/325 TABLET 1 TAB PO ×2 (13:48→15:05)
[2022-10-19] MEDS: KETOROLAC 30 MG/ML VIAL IV (13:56)
--- NOTE | 2022-10-19 15:17 | SUR.PHASEII ---
awaiting discharge orders per provider. post procedure pitocin infusion complete.
== END 2022-10-19 15:05 | disposition home or self-care (01) ==
PROVIDERS: Family Provider Physician Assistant; PCP Physician Assistant; Referring Provider Obstetrics & Gynecology; Visit Provider Obstetrics & Gynecology
PROC: (CPT 58120; principal; 2022-10-19 12:15)
DX: O02.1 Missed abortion (principal)
CPT/HCPCS: 59812; J0330; J0690; J1100; J1885; J2405; J2590; J2704; J3010

== ENCOUNTER → 2023-04-17 11:12 | Outpatient (CLI) | payer OTHER, SELFPAY ==
[2022-02-02 16:13] VITALS: BMI 29.7
[2023-04-17 12:50] LABS: HCG Quantitative /Beta subunit 544.4 mIU/mL
== END ==
PROVIDERS: Family Provider Physician Assistant; PCP Physician Assistant; Referring Provider Obstetrics & Gynecology; Visit Provider Obstetrics & Gynecology
DX: N91.2 Amenorrhea, unspecified (principal)
CPT/HCPCS: 36415; 84702

== ENCOUNTER → 2023-04-19 14:52 | Outpatient (CLI) | payer OTHER, SELFPAY ==
[2022-02-02 16:13] VITALS: BMI 29.7
[2023-04-19 16:28] LABS: HCG Quantitative /Beta subunit 1534.1 mIU/mL
== END ==
PROVIDERS: Family Provider Physician Assistant; PCP Physician Assistant; Referring Provider Obstetrics & Gynecology; Visit Provider Obstetrics & Gynecology
DX: N91.2 Amenorrhea, unspecified (principal)
CPT/HCPCS: 36415; 84702

== ENCOUNTER → 2023-05-01 10:49 | Outpatient (CLI) | payer OTHER, SELFPAY ==
[2023-04-20 10:01] VITALS: BMI 29.7
[2023-05-01 11:28] LABS: Add Manual Diff / Slide Review NO; Basophils Absolute Auto 0 /uL (0-100); Basophils Percent Auto 0.4 % (0-2); Eosinophils Absolute Auto 100 /uL (0-450); Eosinophils Percent Auto 0.9 % (2-4); Hematocrit 40.8 % (36-46); Hemoglobin 14.2 g/dL (12.0-16.0); Lymphocytes Absolute Auto 3000 /uL (1100-4500); Lymphocytes Percent Auto 25.2 % (25-40); Mean Corpuscular HGB Conc 34.8 % (30-36); Mean Corpuscular Hemoglobin 31.1 PG (26-34); Mean Corpuscular Volume 89.4 fL (80-100); Monocytes Absolute Auto 700 /uL (0-900); Monocytes Percent Auto 6.1 % (3-14); Neutrophils Absolute Auto 8000 /uL (1500-7000); Neutrophils Percent Auto 67.4 % (50-75); Platelet Count 374 X10^3/uL (150-400); Red Blood Cell Count 4.56 X10^6/uL (4.0-5.2); Red Cell Distribution Width 12.8 % (11.6-14.8); White Blood Cell Count 11.9 X10^3/uL (4.5-11.0)
[2023-05-02 08:57] LABS: HIV 1 & 2 Ab/Ag 4th Gen Combo NEGATIVE (NEGATIVE); Hep C Virus Ab w/Reflex Quant NEGATIVE s/c (NEGATIVE); Hepatitis B Surface Antigen NEGATIVE s/c (NEGATIVE); Rubella Antibody IgG 12.6 IU/mL (>15)
[2023-05-02 11:39] LABS: Varicella IgG Antibody 2067 index (Immune >165)
[2023-05-04 05:49] LABS: RPR Screen Non Reactive (Non Reactive)
== END ==
LOC: LAB 10:51
PROVIDERS: PCP Physician Assistant; Referring Provider Obstetrics & Gynecology; Visit Provider Obstetrics & Gynecology
DX: Z34.80 Encounter for supervision of other normal pregnancy, unspecified trimester (principal)
CPT/HCPCS: 36415; 80055; 86787; 86803; 86850; 86900; 86901; 87077; 87086; 87186; 87389

== ENCOUNTER → 2023-05-03 12:46 | Outpatient (CLI) | payer OTHER, SELFPAY ==
[2023-04-20 10:01] VITALS: BMI 29.7
[2023-05-03 13:56] LABS: Add Manual Diff / Slide Review NO; Basophils Absolute Auto 0 /uL (0-100); Basophils Percent Auto 0.3 % (0-2); Eosinophils Absolute Auto 100 /uL (0-450); Eosinophils Percent Auto 0.5 % (2-4); Hematocrit 38.5 % (36-46); Hemoglobin 13.6 g/dL (12.0-16.0); Lymphocytes Absolute Auto 2700 /uL (1100-4500); Lymphocytes Percent Auto 23.7 % (25-40); Mean Corpuscular HGB Conc 35.4 % (30-36); Mean Corpuscular Hemoglobin 31.3 PG (26-34); Mean Corpuscular Volume 88.6 fL (80-100); Monocytes Absolute Auto 800 /uL (0-900); Monocytes Percent Auto 6.7 % (3-14); Neutrophils Absolute Auto 7800 /uL (1500-7000); Neutrophils Percent Auto 68.8 % (50-75); Platelet Count 352 X10^3/uL (150-400); Red Blood Cell Count 4.35 X10^6/uL (4.0-5.2); Red Cell Distribution Width 12.9 % (11.6-14.8); White Blood Cell Count 11.3 X10^3/uL (4.5-11.0)
[2023-05-03 16:50] LABS: Hepatitis B Surface Antigen NEGATIVE s/c (NEGATIVE); Rubella Antibody IgG 11.9 IU/mL (>15)
[2023-05-04 05:49] LABS: RPR Screen Non Reactive (Non Reactive)
== END ==
PROVIDERS: PCP Physician Assistant; Referring Provider Obstetrics & Gynecology; Visit Provider Obstetrics & Gynecology
DX: Z34.80 Encounter for supervision of other normal pregnancy, unspecified trimester (principal)
CPT/HCPCS: 36415; 80055

== ENCOUNTER → 2023-05-21 14:22 | Outpatient (CLI) | payer OTHER, SELFPAY ==
[2023-04-20 10:01] VITALS: BMI 29.7
[2023-05-21 21:10] LABS: Urine N gonorrhoeae NOT DETECTED
[2023-05-21 21:11] LABS: Urine Chlamydia NOT DETECTED
== END ==
PROVIDERS: PCP Physician Assistant; Visit Provider Obstetrics & Gynecology
DX: Z34.81 Encounter for supervision of other normal pregnancy, first trimester (principal); Z11.3 Encounter for screening for infections with a predominantly sexual mode of transmission; Z3A.09 9 weeks gestation of pregnancy
CPT/HCPCS: 87491; 87591

== ENCOUNTER → 2023-05-27 14:51 | Outpatient (CLI) | payer OTHER, SELFPAY ==
[2023-04-20 10:01] VITALS: BMI 29.7
[2023-05-27 16:00] LABS: Natera Collection Specimen Collected
== END ==
PROVIDERS: PCP Physician Assistant; Referring Provider Obstetrics & Gynecology; Visit Provider Obstetrics & Gynecology
DX: O09.521 Supervision of elderly multigravida, first trimester (principal); Z3A.10 10 weeks gestation of pregnancy
CPT/HCPCS: 36415

== ENCOUNTER → 2023-07-21 16:32 | Outpatient (CLI) | payer OTHER, SELFPAY ==
[2023-04-20 10:01] VITALS: BMI 29.7
== END ==
PROVIDERS: PCP Physician Assistant; Visit Provider Obstetrics & Gynecology
DX: R80.9 Proteinuria, unspecified (principal); R31.9 Hematuria, unspecified; R82.4 Acetonuria
CPT/HCPCS: 87086

== ENCOUNTER → 2023-07-22 16:53 | Outpatient (CLI) | payer OTHER, SELFPAY ==
[2023-04-20 10:01] VITALS: BMI 29.7
== END ==
PROVIDERS: PCP Physician Assistant; Referring Provider Obstetrics & Gynecology; Visit Provider Obstetrics & Gynecology
DX: Z34.82 Encounter for supervision of other normal pregnancy, second trimester (principal); Z3A.17 17 weeks gestation of pregnancy
CPT/HCPCS: 36415; 82105

== ENCOUNTER → 2023-08-05 07:44 | Outpatient (CLI) | payer OTHER, SELFPAY ==
[2023-04-20 10:01] VITALS: BMI 29.7
--- NOTE | 2023-08-05 07:44 | DI.US.S_ITS ---
PROCEDURE: US OB >= 14 WEEKS FETUS INDICATIONS: 20 Week Anatomy scan OUTSIDE/PRIOR DATING DATA: Last menstrual period (LMP): 03/18/2023 LMP-based estimated date of delivery (DAQUAN): 12/23/2023 First dating scan (date and location): 05/21/2023 Estimated date of delivery (DAQUAN) from first dating scan: 12/21/2023 The calculations are made using the clinical DAQUAN of 12/23/2023 TECHNIQUE: Real-time scanning was performed of the fetus, with image documentation and biometric measurements. Endovaginal scanning: Not performed COMPARISON: [facility], , US OB >= 14 WEEKS FETUS, 05/21/2023, 14:59. FINDINGS: General: A single living intrauterine gestation is present. Presentation: Breech Placenta: Placental position is anterior, without previa. Few placental lakes are present. Amniotic fluid index: 12.8 cm, normal range is 5-24 cm. Single deepest vertical pocket is 4.0 cm. heart rate: 147 beats per minute. Maternal cervical canal: 4.2 cm long. Normal lower limit is 2.5 cm. biometrics: Biparietal diameter: 4.9 cm, 20 weeks 6 days Head circumference: 18.2 cm, 20 weeks 4 days Abdominal circumference: 16.6 cm, 21 weeks 4 days Femur length: 3.4 cm, 20 weeks 5 days Clinically estimated gestational age: 20 weeks 0 days Composite gestational age from present scan: 21 weeks 0 days Estimated weight and percentile: 400 g, 95th percentile Anatomic survey: Neuro: Ventricles are non-dilated at less than 10 mm. Cisterna magna is normal at 3-11 mm. Cerebellum is normal in size and morphology. Nuchal skin fold: Normal at less than 6 mm between 14-21 weeks gestational age. Face: Nose and lips, facial profile are normal. Spine: No evidence for spina bifida. Heart: 4-chambered heart is present, with normal ventricular outflow tracts. Diaphragm: Diaphragm is intact. Stomach: Left-sided stomach is present. Kidneys: No hydronephrosis. Normal is less than 5 mm in 2nd trimester, less than 7 mm in 3rd trimester. Cord: 3-vessel cord has orthotopic insertion. Bladder: Normal in size. Extremities: All 4 extremities identified. IMPRESSION: 1. Single live intrauterine . 2. Estimated weight is at the 95th percentile for clinical gestational age. Recommend correlation for developing macrosomia. 3. anatomic survey is otherwise within normal limits. Approved by: Montana Hernandez M.D. on 08/05/2023 at 13:06
== END ==
LOC: US 07:44
PROVIDERS: PCP Physician Assistant; Referring Provider Obstetrics & Gynecology; Visit Provider Obstetrics & Gynecology
DX: Z34.82 Encounter for supervision of other normal pregnancy, second trimester (principal); Z3A.21 21 weeks gestation of pregnancy
CPT/HCPCS: 76811

== ENCOUNTER → 2023-09-13 15:52 | Outpatient (CLI) | payer OTHER, SELFPAY ==
[2023-04-20 10:01] VITALS: BMI 29.7
[2023-09-13 17:51] LABS: Hematocrit 37.4 % (36-46); Hemoglobin 13.3 g/dL (12.0-16.0)
[2023-09-13 18:06] LABS: GTT (PREG) 1 Hour PP 50gm Dose 104 mg/dL (76-139)
[2023-09-13 18:38] LABS: Free T3, Triiodothyronine Free 4.39 pg/mL (2.77-5.27)
[2023-09-13 18:52] LABS: Thyroid Stimulating Hormone 0.039 uIU/mL (0.47-4.68)
--- NOTE | 2023-10-23 16:10 | P.CONS_ITS ---
History of Present Illness Consult details Date Patient Seen: 10/23/23 Time Patient Seen: 16:10 Chief complaint: , history of cauda equina syndrome Reason for consult: as above Requesting provider: Lakisha Epperson Narrative: 38 y/o , Grave's disease, managed closely by endocrinology, h/o spinal surgery for acute cauda equina syndrome from disc bulge and severe spinal stenosis at L5-S1 (lami and discectomy 01/2022), with residual L sided saddle anesthesia. No residual bowel or bladder dysfunction, no lower extremity weakness. DAQUAN 12/23/2023 Meds Home Medications and Allergies Home Medications Medication Instructions Recorded Confirmed Type polyethylene glycol 3350 17 17 g PO DAILY PRN constipation 09/18/22 10/13/23 History gram/dose oral powder (Miralax) prenat.vits,mayur,ctt-[id number]-[id number] 1 tab PO DAILY 09/18/22 10/13/23 History ondansetron 4 mg disintegrating 4 mg PO Q6H PRN nausea and 10/09/22 10/13/23 Rx tablet vomiting #20 tabs propylthiouracil 50 mg tablet 25 mg PO BID 04/21/23 10/13/23 History amoxicillin 500 mg capsule 500 mg PO TID #21 caps 05/02/23 10/13/23 Rx progesterone micronized 200 mg 200 mg PO DAILY #90 caps 07/01/23 10/13/23 Rx capsule RSVPreF3 antigen-AS01E 0.5 ml IM ONCE #1 ea 10/13/23 10/13/23 Rx adjuvant(PF) 120 mcg/0.5 mL IM suspension, kit breast pump #1 ea 10/13/23 10/13/23 Rx nystatin 100,000 unit/gram topical 1 applic topical BID #30 grams 10/18/23 Rx powder pantoprazole 40 mg tablet,delayed 40 mg PO DAILY #30 tabs 10/20/23 Rx release (Protonix) Allergies Allergy/AdvReac Type Severity Reaction Status Date / Time No Known Drug Allergies Allergy Verified 10/13/23 15:13 Objective Labs 09/13/23 17:08 [facility] Medical History (Updated 09/14/23 @ 02:42 by Lakisha Epperson MD) Missed (~10/2022) History of urinary retention Ovarian cyst Hx of thyroid disease Acute urinary retention Cauda equina syndrome Acute left lumbar radiculopathy Gait disturbance Surgical History (Updated 09/18/22 @ 09:13 by Radha Jin RN) [place] teeth extracted (~2006) Hx of laminectomy (~2021) Family History (Updated 04/21/23 @ 15:38 by Radha Jin RN) Mother UTI (urinary tract infection) Rheumatoid arthritis Father Spinal disease Grandmother Colon cancer Grandfather Unable to control bladder Liver failure Grandfather Heart attack Grandmother No problems noted. Family/Other Heart failure Family/Other Cancer Brother ADHD Social History marital status: number of children: 0 household members: spouse lives independently: Yes caregiver/support person: Yes housing: house pets and animals: Yes (2 cats, managing litter box) education level: college occupational status: employed current occupational exposures/hazards: No special rick needs: No travel history: recent ([place], domestic; going to ) Safety seatbelt use: always helmet use: Yes water heater temp set < 120 deg: Yes working smoke detector in home: Yes fire extinguisher in home: Yes carbon monox detector in home: Yes firearms in home: Yes firearms unloaded and locked: Yes do you feel safe at home: Yes Tobacco & Substance Use Smoking Status: Never smoker second hand exposure: No alcohol intake: former substance use type: does not use Diet and Exercise during the past year weight has: remained stable well-balanced diet: daily or most days daily servings fruits/ve or more times/day caffeine: Yes (1 cup coffee in AM) Type(s) of exercise: walking, weight lifting, other and yoga frequency: 1-2 times per week Assessment & Plan Assessment & Plan narrative: I discussed my literature search with patient and the paucity of data regarding recurrent CHARLIE associated with neuraxial anesthesia. Recurring cases are typically associated with mechanical insult, such as recurring disc bulge and spinal stenosis. I could not find any reports discussing neuraxial anesthesia after CHARLIE, and so could not report to the patient whether or not there is increased risk of recurrence if neuraxial techniques were to be used. Maddison's preference is to avoid spinal/epidural if possible, but expressed an openness if necessary. We also discussed the possibility of a general anesthetic for C- section, should that be needed. We did not establish a concrete plan for her labor, and I emphasized that further discussion should take place with her anesthesia provider at the time of delivery. Time-Based Coding :: [TOTAL MINUTES] spent with patient and on the chart (including review of chart, obtaining history, exam, reviewing outside data, placing orders, documenting exam and treatment plan, and counseling patient) on [DATE].
== END ==
LOC: LAB 15:53
PROVIDERS: PCP Physician Assistant; Referring Provider Obstetrics & Gynecology; Visit Provider Obstetrics & Gynecology
DX: E05.90 Thyrotoxicosis, unspecified without thyrotoxic crisis or storm (principal); Z34.80 Encounter for supervision of other normal pregnancy, unspecified trimester; Z3A.26 26 weeks gestation of pregnancy; Z34.82 Encounter for supervision of other normal pregnancy, second trimester
CPT/HCPCS: 36415; 82950; 84439; 84443; 84481; 85014; 85018

== ENCOUNTER → 2023-12-01 14:27 | Outpatient (CLI) | payer OTHER, SELFPAY ==
[2023-04-20 10:01] VITALS: BMI 29.7
[2023-12-02 14:20] LABS: Strep Grp B PCR NEG for Grp B Strep
== END ==
PROVIDERS: Family Provider Physician Assistant; PCP Physician Assistant; Referring Provider Obstetrics & Gynecology; Visit Provider Obstetrics & Gynecology
DX: Z34.83 Encounter for supervision of other normal pregnancy, third trimester (principal); Z3A.36 36 weeks gestation of pregnancy
CPT/HCPCS: 87653

== ENCOUNTER 2023-12-08 10:19 | Observation (INO) | payer OTHER, SELFPAY ==
[2023-04-20 10:01] VITALS: BMI 29.7
[2023-12-08 11:04] LABS: Add Manual Diff / Slide Review NO; Basophils Absolute Auto 0 /uL (0-100); Basophils Percent Auto 0.3 % (0-2); Eosinophils Absolute Auto 100 /uL (0-450); Hematocrit 38.6 % (36-46); Hemoglobin 13.6 g/dL (12.0-16.0); Lymphocytes Absolute Auto 2400 /uL (1100-4500); Lymphocytes Percent Auto 18.8 % (25-40); Mean Corpuscular HGB Conc 35.3 % (30-36); Mean Corpuscular Hemoglobin 31.1 PG (26-34); Mean Corpuscular Volume 88.2 fL (80-100); Monocytes Absolute Auto 700 /uL (0-900); Monocytes Percent Auto 5.8 % (3-14); Neutrophils Absolute Auto 9600 /uL (1500-7000); Neutrophils Percent Auto 74.1 % (50-75); Platelet Count 358 X10^3/uL (150-400); Red Blood Cell Count 4.38 X10^6/uL (4.0-5.2); Red Cell Distribution Width 13.2 % (11.6-14.8)
[2023-12-08 11:18] LABS: Alanine Aminotransferase 23 IU/L (<35); Albumin 3.4 g/dL (3.5-5.0); Alkaline Phosphatase 113 U/L (38-126); Aspartate Aminotransferase 25 IU/L (14-36); BUN Creatinine Ratio 25.9 (6-22); Bilirubin Total 0.7 mg/dL (0.2-1.3); Blood Urea Nitrogen 14 mg/dL (7-17); Calcium 8.9 mg/dL (8.4-10.2); Carbon Dioxide 20 mmol/L (22-32); Chloride 105 mmol/L (98-107); Estimated Glomerular Filt Rate > 60 mL/min (>60); Globulin 3.5 g/dL (1.7-4.1); Glucose 103 mg/dL (70-100); HEMOLYSIS < 15 (0-50); Potassium 3.8 mmol/L (3.4-5.1); Sodium 131 mmol/L (137-145); Total Protein 6.9 g/dL (6.3-8.2); Uric Acid 5.1 mg/dL (2.5-6.2)
[2023-12-08 12:07] LABS: Creatinine Urine Random 34.58 mg/dL; Protein (Total) Urine Random 11 mg/dL (0-12); Protein Creatinine Ratio Urine 0.31 GRAM/24H
[2023-12-08 13:23] LABS: Free T4, Direct Thyroxine 0.51 ng/dL (0.78-2.19)
== END 2023-12-08 12:38 | disposition home or self-care (01) ==
PROVIDERS: Admitting Provider Obstetrics & Gynecology; Family Provider Physician Assistant; PCP Physician Assistant; Referring Provider Obstetrics & Gynecology; Visit Provider Obstetrics & Gynecology
DX: O26.893 Other specified pregnancy related conditions, third trimester (principal); R03.0 Elevated blood-pressure reading, without diagnosis of hypertension; O99.283 Endocrine, nutritional and metabolic diseases complicating pregnancy, third trimester; E07.9 Disorder of thyroid, unspecified; Z3A.37 37 weeks gestation of pregnancy
CPT/HCPCS: 59025; 80053; 84439; 84443; 84550; 85025; G0378; G0379

== ENCOUNTER 2023-12-15 19:18 | Inpatient (IN) | payer OTHER, SELFPAY ==
[2023-04-20 10:01] VITALS: BMI 29.7
--- NOTE | 2023-12-15 19:33 | PM.OBHP.IH.1 ---
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 Estimated Delivery Date Method Current WG Current Estimate 12/23/23 LMP (Certain) 38w 6d Other Estimates 12/21/23 Ultrasound #1 39w 1d Estimated Gestational Age (weeks): 38+6 : 2 Para: 0 care: good care, initiated at week # (9), number of visits (11) and pounds weight gain (62) Dating criteria OB: LMP confirmed by 1st trimester US Ultrasounds: normal 1st trimester US and normal mid trimester US Obstetrical complications: other (LGA) Medical complications OB: other (Grave's disease, Cauda equina) Indications Indication for induction OB: other (AMA) Preadmission Labs Last OB Lab Results: Blood Type A Positive 05/01/23 11:00 Antibody Screen Negative 05/01/23 11:00 Hct 38.6 % (36-46) 12/08/23 10:45 Hgb 13.6 g/dL (12.0-16.0) 12/08/23 10:45 Hep Bs Antigen Negative s/c (NEGATIVE) 05/03/23 13:23 Hepatitis C Antibody Negative s/c (NEGATIVE) 05/01/23 11:00 Rubella Antibody 11.9 IU/mL (>15) L 05/03/23 13:23 VZV IgG Antibody 2067 index (Immune >165) 05/01/23 11:00 Glucose 1 Hr 50 gm 104 mg/dL (76-139) 09/13/23 17:08 Group B Strep (PCR) Neg for grp b strep 12/01/23 14:25 -: Chlamydia screen: negative, Gonorrhea screen: negative and Urine: negative -: PAP smear: Normal Genetic Screens: Cell-free DNA: Normal (low risk male) and Alpha-fetoprotein: Normal External Labs -: Urine: negative Prior (ies) Past Pregnancies Del. Date GA/Weeks Labor Lgth Wt Sex Route Outcome Anesthesia Place Delv Breastfeed Preg Comp Name 10/17/22 12 spontaneous Delivery Date: 10/17/22 Last Updated by: Radha Jin RN D&C, no complications Evaluation Evaluation Baseline heart rate: 140 Variability: Moderate (11-25) monitor accelerations: Present Monitor Decelerations: Absent Contraction Frequency (minutes): 6 Uterine Contraction Intensity: Mild Dilation (cm): 1 Effacement (%): 80 Dilation: 1-2 cm Effacement: >/=80% station: -1 Position of cervix: mid Consistency: medium Estevez score: 8 [facility] Medical History (Updated 11/08/23 @ 04:53 by Lakisha Epperson MD) Missed (~10/2022) History of urinary retention Ovarian cyst Hx of thyroid disease Acute urinary retention Cauda equina syndrome Acute left lumbar radiculopathy Gait disturbance Surgical History (Updated 09/18/22 @ 09:13 by Radha Jin, RN) [place] teeth extracted (~2006) Hx of laminectomy (~2021) Family History (Updated 04/21/23 @ 15:38 by Radha Jin RN) Mother UTI (urinary tract infection) Rheumatoid arthritis Father Spinal disease Grandmother Colon cancer Grandfather Unable to control bladder Liver failure Grandfather Heart attack Grandmother No problems noted. Family/Other Heart failure Family/Other Cancer Brother ADHD Social History marital status: number of children: 0 household members: spouse lives independently: Yes caregiver/support person: Yes housing: house pets and animals: Yes (2 cats, managing litter box) education level: college occupational status: employed current occupational exposures/hazards: No special rick needs: No travel history: recent ([place], domestic; going to ) seatbelt use: always helmet use: Yes water heater temp set < 120 deg: Yes working smoke detector in home: Yes fire extinguisher in home: Yes carbon monox detector in home: Yes firearms in home: Yes firearms unloaded and locked: Yes do you feel safe at home: Yes Smoking Status: Never smoker second hand exposure: No alcohol intake: former substance use type: does not use during the past year weight has: remained stable well-balanced diet: daily or most days daily servings fruits/ve or more times/day caffeine: Yes (1 cup coffee in AM) Type(s) of exercise: walking, weight lifting, other and yoga frequency: 1-2 times per week Meds Home Medications and Allergies Home Medications Medication Instructions Recorded Confirmed Type polyethylene glycol 3350 17 17 g PO DAILY PRN constipation 09/18/22 12/15/23 History gram/dose oral powder (Miralax) prenat.vits,mayur,qle-ctoi-pvlqh 1 tab PO DAILY 09/18/22 12/15/23 History ondansetron 4 mg disintegrating 4 mg PO Q6H PRN nausea and 10/09/22 12/15/23 Rx tablet vomiting #20 tabs propylthiouracil 50 mg tablet 25 mg PO BID 04/21/23 12/15/23 History amoxicillin 500 mg capsule 500 mg PO TID #21 caps 05/02/23 12/15/23 Rx progesterone micronized 200 mg 200 mg PO DAILY #90 caps 07/01/23 12/15/23 Rx capsule RSVPreF3 antigen-AS01E 0.5 ml IM ONCE #1 ea 10/13/23 12/15/23 Rx adjuvant(PF) 120 mcg/0.5 mL IM suspension, kit breast pump #1 ea 10/13/23 12/15/23 Rx nystatin 100,000 unit/gram topical 1 applic topical BID #30 grams 10/18/23 12/15/23 Rx powder pantoprazole 40 mg tablet,delayed 40 mg PO DAILY #30 tabs 10/20/23 12/15/23 Rx release (Protonix) valacyclovir 500 mg tablet 500 mg PO DAILY #30 tabs 11/17/23 12/15/23 Rx (Valtrex) Allergies Allergy/AdvReac Type Severity Reaction Status Date / Time No Known Drug Allergies Allergy Verified 12/15/23 11:10 OB Exam Narrative Exam Narrative: Gen: NAD FH: 40 cm EFW: 9# Ext: 1 + edema Assessment and Plan Assessment and Plan Assessment and Plan narrative: Assessment: 38-year-old 2 para 0 at 39 weeks' gestation for induction of labor due to advanced maternal age Status post surgery for cauda equina syndrome Plan: Attempted balloon catheter placement Misoprostol 25mcg q 4 hours Will reassess cervix in am Time-Based Coding :: [TOTAL MINUTES] spent with patient and on the chart (including review of chart, obtaining history, exam, reviewing outside data, placing orders, documenting exam and treatment plan, and counseling patient) on [DATE].
--- NOTE | 2023-12-15 20:53 | PM.PN.1 ---
Subjective Subjective Date Patient Seen: 12/15/23 Time Patient Seen: 20:30 Interval history: 38yo female with hx of cauda equina syndrome is full-term and being induced for labor. Dr. Anderson met with pt in 10/2023 and did a literature search for guidance on how to handle her situation, and he and I discussed it with him and with Dr. Gunter, the pt's spine surgeon, at the time. There were no helpful case reports or studies to be found. Pt says she blew out her L5-S1 disc in 01/2022 and it herniated first towards her left side, causing left-sided symptoms, then spread to the right and over seven days progressed to the point where she had bowel and bladder incontinence. She had to self-cath for about six months postop but no longer needs to do that. I examined pt's back. Her scar is >4 below where I would plan to place an epidural and should not interfere with placement. We discussed epidurals and spinals and options available for labor and delivery as well as if needed. I explained that neuraxial anesthesia--spinals and epidurals--work by numbing the nerves in the targeted area, similar to numbness she experienced with cauda equina syndrome. Normally that is temporary and goes away shortly after discontinuation of the medication. However, I can't promise that her numbness and weakness will go away. Pt is young to have suffered such a rare condition, and I can't predict if it could happen again. Also, there is always a rare chance even at baseline in a patient without neurologic compromise of permanent neurologic damage, one in the hundred-thousands of patients. The patient wants to try to deliver without an epidural. She would prefer to avoid one, and I told her I would also prefer to avoid doing one, because however rare neurologic complications from an epidural may be, I can't promise she won't have some sort of neurologic condition or an associated flare-up of her cauda equina symptoms. However, I think an epidural could be safely attempted should patient exhaust other avenues for pain relief during labor. I agree with Dr. Anderson that an epidural is probably safer than a spinal, so that we stay farther away from her spinal cord. In the event a is needed, we could attempt an epidural for that as well. Pt understandably does not have a clear idea of what she wants to do at this point. I reassured her that it is possible to deliver without an epidural and she may not need one. We won't push her into having an epidural and will only place one if pt tells L&D staff she wants one. I answered questions from patient and her family as best I could and offered reassurances. We will be available on an as-needed basis to assist in her care in whatever way we can. [facility] Medical History (Updated 11/08/23 @ 04:53 by Lakisha Epperson MD) Missed (~10/2022) History of urinary retention Ovarian cyst Hx of thyroid disease Acute urinary retention Cauda equina syndrome Acute left lumbar radiculopathy Gait disturbance Surgical History (Updated 09/18/22 @ 09:13 by Radha Jin RN) [place] teeth extracted (~2006) Hx of laminectomy (~2021) Family History (Updated 04/21/23 @ 15:38 by Radha Jin RN) Mother UTI (urinary tract infection) Rheumatoid arthritis Father Spinal disease Grandmother Colon cancer Grandfather Unable to control bladder Liver failure Grandfather Heart attack Grandmother No problems noted. Family/Other Heart failure Family/Other Cancer Brother ADHD Social History marital status: number of children: 0 household members: spouse lives independently: Yes caregiver/support person: Yes housing: house pets and animals: Yes (2 cats, managing litter box) education level: college occupational status: employed current occupational exposures/hazards: No special rick needs: No travel history: recent ([place], domestic; going to ) seatbelt use: always helmet use: Yes water heater temp set < 120 deg: Yes working smoke detector in home: Yes fire extinguisher in home: Yes carbon monox detector in home: Yes firearms in home: Yes firearms unloaded and locked: Yes do you feel safe at home: Yes Smoking Status: Never smoker second hand exposure: No alcohol intake: former substance use type: does not use during the past year weight has: remained stable well-balanced diet: daily or most days daily servings fruits/ve or more times/day caffeine: Yes (1 cup coffee in AM) Type(s) of exercise: walking, weight lifting, other and yoga frequency: 1-2 times per week Assessment & Plan Time-Based Coding :: [TOTAL MINUTES] spent with patient and on the chart (including review of chart, obtaining history, exam, reviewing outside data, placing orders, documenting exam and treatment plan, and counseling patient) on [DATE].
[2023-12-15] MEDS: miSOPROStoL 25 MCG TABLET 50 MCG PO (21:29)
[2023-12-15 21:37] LABS: Add Manual Diff / Slide Review NO; Basophils Absolute Auto 0 /uL (0-100); Basophils Percent Auto 0.2 % (0-2); Eosinophils Absolute Auto 100 /uL (0-450); Eosinophils Percent Auto 0.7 % (2-4); Hematocrit 37.8 % (36-46); Hemoglobin 13.6 g/dL (12.0-16.0); Lymphocytes Absolute Auto 3700 /uL (1100-4500); Lymphocytes Percent Auto 23.4 % (25-40); Mean Corpuscular HGB Conc 35.9 % (30-36); Mean Corpuscular Hemoglobin 31.5 PG (26-34); Mean Corpuscular Volume 87.9 fL (80-100); Monocytes Absolute Auto 800 /uL (0-900); Monocytes Percent Auto 5.3 % (3-14); Neutrophils Absolute Auto 11000 /uL (1500-7000); Neutrophils Percent Auto 70.4 % (50-75); Platelet Count 384 X10^3/uL (150-400); Red Cell Distribution Width 13.7 % (11.6-14.8); White Blood Cell Count 15.7 X10^3/uL (4.5-11.0)
[2023-12-15] MEDS: LACTATED RINGERS 1,000 ML 100 ML IV (22:06)
[2023-12-16] MEDS: ZOLPIDEM 5 MG TABLET PO ×2 (00:58→05:06)
[2023-12-16] MEDS: miSOPROStoL 25 MCG TABLET 50 MCG PO ×2 (01:47→06:15)
--- NOTE | 2023-12-16 08:41 | PM.OBPNLAB ---
Date/Time Date Patient Seen: 12/16/23 Time Patient Seen: 08:41 Pain Control Pain control: tolerating well Pelvic Exam Dilation (cm): 2 Effacement (%): 80 station: -1 Amniotic membrane status: Intact Comments: Status post 3 doses of oral misoprostol Contractions Contractions on admission: irregular Monitor mode: External Contraction pattern: Absent Contraction intensity: Mild Status status: Category l Heart Rate Baseline: 135 Monitor Accelerations: Present Monitor Decelerations: Absent Monitor Variability: Moderate Assessment and Plan Assessment: induction ongoing Comments: Patient to shower and eat breakfast Would like to try a couple of rounds of pumping to get labor started before initiating Pitocin
[2023-12-16] MEDS: ONDANSETRON 4 MG/2 ML INJ IV (09:30)
[2023-12-16] MEDS: LANOLIN OINT 7 GM 1 APPLIC TOP (10:39)
[2023-12-16] MEDS: OXYTOCIN PREMIX 30 UNIT/500 ML PLAST..BAG IV (11:39)
--- NOTE | 2023-12-16 12:59 | PM.OBPNLAB ---
Date/Time Date Patient Seen: 12/16/23 Time Patient Seen: 12:59 Pain Control Pain control: tolerating well Comments: Sitting up on ball, playing [employer] Pelvic Exam Effacement (%): 80 station: -1 Amniotic membrane status: Intact Comments: Deferred vaginal exam Contractions Monitor mode: External Pitocin rate (mU/min): 5 Contraction frequency (min): 3 Contraction duration (min): 1 Contraction pattern: Regular Contraction intensity: Mild Status status: Category l Heart Rate Baseline: 140 Monitor Accelerations: Present Monitor Decelerations: Absent Monitor Variability: Moderate Assessment and Plan Assessment: induction ongoing Plan: continuous present management Comments: We will reassess cervix at 6:00 p.m..
--- NOTE | 2023-12-16 17:48 | PM.OBPNLAB ---
Date/Time Date Patient Seen: 12/16/23 Time Patient Seen: 17:48 Pain Control Pain control: tolerating well Pelvic Exam Dilation (cm): 2 Effacement (%): 80 station: -1 Amniotic membrane status: Intact Contractions Monitor mode: External Pitocin rate (mU/min): 15 Contraction frequency (min): 2 Contraction duration (min): 1 Contraction pattern: Regular Contraction intensity: Mild Status status: Category l Heart Rate Baseline: 140 Monitor Accelerations: Present Monitor Decelerations: Absent Monitor Variability: Moderate Assessment and Plan Assessment: induction ongoing Comments: Plan: Stopped Pitocin Cervical balloon overnight Restart Pitocin at 6:00 a.m. AROM tomorrow morning Expected management to spontaneous vaginal delivery tomorrow Ambien as needed for sleep tonight Patient in agreement with the plan
--- NOTE | 2023-12-16 18:22 | PM.PROC.1 ---
Procedures Date/Time Date of procedure: 12/16/23 Time of procedure: 16:20 General Procedure description: CNM consulted by for Gonzales balloon placement. Verified written consent for induction of labor. Procedure explained. Gonzales balloon placed manually with CE of 2.5cm/75%/high, soft, mid position Gonzales catheter balloon inserted into os and inflated with 60mL normal saline. Tubing clamped. Patient tolerated the procedure well. Anticipatory guidance given for cramping, vaginal bleeding and passage of cervical ripening balloon.
[2023-12-16] MEDS: ACETAMINOPHEN 325 MG TABLET 650 MG PO (19:50)
[2023-12-16] MEDS: ZOLPIDEM 5 MG TABLET 10 MG PO (21:00)
[2023-12-17] MEDS: OXYTOCIN PREMIX 30 UNIT/500 ML PLAST..BAG IV (06:05)
[2023-12-17] MEDS: LACTATED RINGERS 1,000 ML 100 ML IV ×2 (09:06→16:12)
--- NOTE | 2023-12-17 10:17 | PM.OBPNLAB ---
Date/Time Date Patient Seen: 12/17/23 Time Patient Seen: 10:18 Pain Control Pain control: tolerating well Pelvic Exam Dilation (cm): 6 Effacement (%): 85 station: 0 Amniotic membrane status: Intact Contractions Contractions on admission: irregular Monitor mode: External Pitocin rate (mU/min): 12 Contraction frequency (min): 2 Contraction pattern: Regular Contraction intensity: Mild Status status: Category l Heart Rate Baseline: 140 Monitor Accelerations: Present Monitor Decelerations: Absent Monitor Variability: Moderate Assessment and Plan Assessment: active labor and induction ongoing Comments: AROM with copious clear amniotic fluid Expected management to spontaneous vaginal delivery
--- NOTE | 2023-12-17 13:20 | PM.OBPNLAB ---
Date/Time Date Patient Seen: 12/17/23 Time Patient Seen: 12:45 Pain Control Pain control: tolerating well and other (using nitrous oxide) Pelvic Exam Dilation (cm): 7 Effacement (%): 100 station: 0 Amniotic membrane status: Ruptured Contractions Contractions on admission: irregular Monitor mode: External Pitocin rate (mU/min): 12 Contraction frequency (min): 2 Contraction duration (min): 1 Contraction pattern: Regular Contraction intensity: Strong/Firm Status status: Category l Heart Rate Baseline: 140 Monitor Accelerations: Present Monitor Decelerations: Absent Monitor Variability: Moderate Assessment and Plan Assessment: active labor Comments: Decrease Pitocin to 8miU/min Expectant management to
[2023-12-17] MEDS: ACETAMINOPHEN IV 1,000 MG/100 ML VIAL 400 MG IV (14:37)
[2023-12-17] MEDS: CALCIUM CARBONATE 500 MG TAB 1000 MG PO (16:12)
--- NOTE | 2023-12-17 16:26 | PM.AN.REGBLK ---
Regional Block Pre-procedure Procedure: Continuous Lumbar Epidural for L&D PMH/ROS narrative: active labor PSH/Anesthesia history narrative: see previous notes from anesthesia providers Roberto and Justin. pt presents with hx of cauda equina syndrome. surgery 02/03. self cath x 6 months after surgery. pt has numbness and lack of sensation in lower left saddle since injury. ASA Class: III Labs: Hct 37.8 % (36-46) 12/15/23 21:10 Plt Count 384 X10^3/uL (150-400) 12/15/23 21:10 Medications: Current Medications Generic Name Dose Route Start Last Admin Trade Name Freq PRN Reason Stop Dose Admin Acetaminophen 650 mg 12/16/23 19:20 12/16/23 19:50 Acetaminophen 325 Mg Tablet PO 650 mg Q6H PRN Administration Fever/Mild Pain (1-3) Calcium Carbonate 1,000 mg 12/15/23 20:01 12/17/23 16:12 Calcium Carbonate 500 Mg Tab PO 1,000 mg Q2HR PRN Administration Dyspepsia Carboprost Tromethamine 250 mcg 12/15/23 20:01 Carboprost 250 Mcg/Ml Ampul IM Q90M PRN Bleeding Fentanyl 50 mcg 12/15/23 20:01 Fentanyl 100 Mcg/2 Ml Inj IV Q1H PRN Pain, Moderate (4-6) Tranexamic Acid 1,000 mg/ 100 mls @ 600 mls/hr 12/15/23 20:01 Sodium Chloride IV NOW PRN Bleeding Oxytocin/Lactated Ringer's 30 unit in 500 mls @ 200 mls/hr 12/15/23 20:01 Oxytocin Premix IV CONT PRN Bleeding Protocol Oxytocin/Lactated Ringer's 30 unit in 500 mls @ 2 mls/hr 12/16/23 11:10 12/17/23 06:05 Oxytocin Premix IV 1 milliunit/min TITRATE RITA 1 mls/hr Administration Protocol 2 MILLIUNIT/MIN Lidocaine HCl 20 ml 12/15/23 20:01 Lidocaine 1% 20 Ml INJ INTRA-OP PRN Post Delivery Methylergonovine Maleate 0.2 mg 12/15/23 20:01 Methylergonovine 0.2 Mg/Ml Vial IM NOW PRN Bleeding Methylergonovine Maleate 0.2 mg 12/15/23 20:01 Methylergonovine 0.2 Mg Tablet PO Q6HR PRN Heavy Bleeding Mineral Oil 30 ml 12/15/23 20:01 Mineral Oil 30 Ml Udc TOP PRN PRN Version Misoprostol 50 mcg 12/15/23 20:01 12/16/23 06:15 Misoprostol 25 Mcg Tablet PO 50 mcg Q4H PRN Administration cervical ripening Misoprostol 400 mcg 12/15/23 20:01 Misoprostol 200 Mcg Tablet SL NOW PRN Bleeding Misoprostol 800 mcg 12/15/23 20:01 Misoprostol 200 Mcg Tablet IN NOW PRN Bleeding Naloxone HCl 0.2 mg 12/15/23 20:01 Naloxone 0.4 Mg/Ml Vial IV Q2MIN PRN Opiate Reversal Ondansetron HCl 4 mg 12/15/23 20:01 12/16/23 09:30 Ondansetron 4 Mg/2 Ml Inj IV 4 mg Q4HR PRN Administration Nausea And Vomiting Oxytocin 10 unit 12/15/23 20:01 Oxytocin 10 Unit/Ml Vial IM NOW PRN Bleeding Zolpidem Tartrate 5 mg 12/16/23 00:43 12/16/23 05:06 Zolpidem 5 Mg Tablet PO 5 mg BEDTIME PRN Administration Sleep Zolpidem Tartrate 10 mg 12/16/23 19:15 12/16/23 21:00 Zolpidem 5 Mg Tablet PO 10 mg BEDTIME PRN Administration Sleep Allergies: Allergies Allergy/AdvReac Type Severity Reaction Status Date / Time No Known Drug Allergies Allergy Verified 12/15/23 11:10 Procedure Insertion date: 12/17/23 Insertion time: 15:52 Prep/Local: betadine x3 (chloraprep ) and 1% lidocaine Interspace: l3-l4 Patient position: sitting Needle: 17 gauge Tuohy Loss of resistance with: saline VINNY at (cm): 6 Catheter placed at SKIN (cm): 13 Insertion: No CSF, No Blood, No Paresthesia with insertion, No Paresthesia with injection and No Test dose reaction Initial Medications TEST DOSE time: 15:52 TEST DOSE: 1.5% lidocaine with epinephrine 1:200k (mL): 2 BOLUS DOSE time: 15:52 BOLUS DOSE (mL): 3 BOLUS DOSE med: 0.125% bupivacaine with fentanyl 10 mcg/mL Infusion INFUSION: 0.0625% bupivacaine and with fentanyl 2 mcg/mL Initial rate (mL/hr): 8 Post-procedure Anesthesia date START: 12/17/23 Anesthesia time START: 15:45
--- NOTE | 2023-12-17 18:52 | PM.OBPNLAB ---
Date/Time Date Patient Seen: 12/17/23 Time Patient Seen: 18:40 Pain Control Pain control: epidural Comments: Pt much more comfortable. Hips and low back still a little sore. Feeling rectal pressure. Pelvic Exam Dilation (cm): 10 Effacement (%): 100 station: +1 Amniotic membrane status: Ruptured Contractions Contractions on admission: irregular Monitor mode: External Pitocin rate (mU/min): 12 Contraction frequency (min): 3 Contraction duration (min): 1 Contraction pattern: Regular Contraction intensity: Strong/Firm Status status: Category l Heart Rate Baseline: 140 Monitor Accelerations: Present Monitor Decelerations: Early Monitor Variability: Moderate Assessment and Plan Assessment: active labor Comments: Labor down for 30 minutes and then begin pushing Expectant management to
--- NOTE | 2023-12-17 20:48 | PM.OBPRVD ---
Events: Labor Induction Labor & Delivery Delivery date: 12/17/23 Cervical ripening method: per misoprostal protocol Induction method: per pitocin protocol Delivery augmentation: rupture of membranes Delivery monitor: external FHT and external uterine Route of delivery: Episiotomy description: None L&D Laceration Description: Periurethral - 2nd Degree and Vaginal - 2nd Degree Delivery repair: vicryl and chromic Quantitative Blood Loss: 200 Anesthesia Type: Epidural Complications: None Narrative: Pushing 1937 Delivery 1945 Plac 2003 9#5.4 oz Patient complete and pushed for 9 minutes. At 7:46 p.m., a live male delivered spontaneously in the BIJAL presentation, over an intact perineum. Nuchal cord x1 reduced on the perineum. There was a slight turtle sign. With downward traction the anterior shoulder delivered. The remainder of the body delivered without difficulty and was placed on mom's abdomen. Pitocin was given in the IV fluids. The cord was double clamped and cut after 1 minute. Cord bloods were obtained. The placenta delivered intact with a three-vessel cord at 8:04 p.m. The fundus was massaged to firm. The perineum and vagina were inspected. There is a second-degree vaginal/perineal laceration which was repaired in the usual fashion. Hemostasis was achieved. Apgars 6 at 1 minute and 8 at 5 minutes. . Epidural analgesia. Weight 9 lb 5.4 oz. Mom and infant stable to recovery. [place] Baby 1: gender: Male Presentation: vertex Position: Left Occiput Anterior Placenta delivery description: Spontaneous Cord Vessel Description: 3 Vessels, Nuchal Cord (x1), Reduced and Clamped/Cut (after 1 min) score (1 min): 6 score (5 min): 8 weight: 9 lb 5.4 oz Plan for aftercare: Routine care
[2023-12-17] MEDS: IBUPROFEN 600 MG TABLET PO (22:26)
[2023-12-18] MEDS: ACETAMINOPHEN 325 MG TABLET 650 MG PO ×4 (01:36→20:02)
[2023-12-18] MEDS: IBUPROFEN 600 MG TABLET PO ×4 (04:18→22:59)
[2023-12-18] MEDS: DOCUSATE 100 MG CAPSULE PO ×2 (08:08→21:58)
--- NOTE | 2023-12-18 10:04 | PM.OBPN.1 ---
Subjective - OB Subjective Patient comments: no complaints, pain well controlled and other (Voided without the catheter) baby status: doing well feeding status: breast and bottle feeding Date Patient Seen: 12/18/23 Time Patient Seen: 10:05 Interval history: day # 1 status post spontaneous vaginal delivery. Patient was able to void right away after the catheter was removed. is going okay. coming in later today. Bleeding is tapering. No residual side effects from the epidural. Exam Narrative Exam Narrative: Generally: Patient is sitting up in bed, no acute distress Fundus: Firm at U Extremities: 1+ edema, negative Homans Objective Labs 12/15/23 21:10 Assessment & Plan Plan day: 1 plan OB: routine care Comments: consult Anticipate discharge tomorrow Time-Based Coding :: [TOTAL MINUTES] spent with patient and on the chart (including review of chart, obtaining history, exam, reviewing outside data, placing orders, documenting exam and treatment plan, and counseling patient) on [DATE].
[2023-12-18 14:01] LABS: Hematocrit 32.8 % (36-46); Hemoglobin 11.5 g/dL (12.0-16.0)
--- NOTE | 2023-12-18 15:07 | PM.PNPO.1 ---
Subjective Subjective Interval history: pt states return to baseline (unilateral numbness L side, saddle area) able to urinate able to ambulate Objective Labs 12/18/23 13:48 Labs: Laboratory Results - last 24 hr 12/18/23 13:48 Hgb 11.5 L Hct 32.8 L PFSH Medical History (Updated 12/16/23 @ 00:09 by Giorgi Evans, RN) Missed (~10/2022) Ovarian cyst History of urinary retention Hx of thyroid disease Acute urinary retention Cauda equina syndrome Acute left lumbar radiculopathy Gait disturbance Surgical History [place] teeth extracted (~2006) Hx of laminectomy (~2021) Family History (Updated 04/21/23 @ 15:38 by Radha Jin RN) Mother UTI (urinary tract infection) Rheumatoid arthritis Father Spinal disease Grandmother Colon cancer Grandfather Unable to control bladder Liver failure Grandfather Heart attack Grandmother No problems noted. Family/Other Heart failure Family/Other Cancer Brother ADHD Social History marital status: number of children: 0 household members: spouse lives independently: Yes caregiver/support person: Yes housing: house pets and animals: Yes (2 cats, managing litter box) education level: college occupational status: employed current occupational exposures/hazards: No special rick needs: No travel history: recent ([place], domestic; going to ) seatbelt use: always helmet use: Yes water heater temp set < 120 deg: Yes working smoke detector in home: Yes fire extinguisher in home: Yes carbon monox detector in home: Yes firearms in home: Yes firearms unloaded and locked: Yes do you feel safe at home: Yes Smoking Status: Never smoker second hand exposure: No alcohol intake: former substance use type: does not use during the past year weight has: remained stable well-balanced diet: daily or most days daily servings fruits/ve or more times/day caffeine: Yes (1 cup coffee in AM) Type(s) of exercise: walking, weight lifting, other and yoga frequency: 1-2 times per week
[2023-12-18] MEDS: OXYCODONE IR 5 MG TABLET PO (20:01)
[2023-12-18] MEDS: polyethylene glycoL 3350 17 GM POWD.PACK PO (21:57)
[2023-12-19] MEDS: ACETAMINOPHEN 325 MG TABLET 650 MG PO ×2 (02:01→08:30)
[2023-12-19] MEDS: IBUPROFEN 600 MG TABLET PO (05:45)
[2023-12-19] MEDS: DOCUSATE 100 MG CAPSULE PO (08:30)
[2023-12-19] MEDS: MEASLES,MUMPS,RUBELLA VACC/PF 0.5 ML VIAL SUBCUT (08:31)
[2023-12-19] MEDS: LANOLIN OINT 7 GM 1 APPLIC TOP (10:21)
--- NOTE | 2023-12-22 06:54 | P.DS_ITS ---
Discharge Providers Provider Date of admission: 12/15/23 19:18 Discharge Date: 12/19/23 Primary care physician: Jeanette Wilhelm PA-C Consults: 12/15/23 20:01 Consult to Anesthesiology Urgent Comment: Consulting Provider: Anesthesiologist Reason for consultation: Epidural Has provider been notified: Yes 12/18/23 20:46 Consult to Computer Operations Analyst Routine Comment: Discharge provider: Lakisha Epperson MD Summary Hospital Course Date Patient Seen: 12/19/23 Time Patient Seen: 08:30 Diagnoses: 39 wks gestation Cervical ripening wih Misoprostol Pitocin induction of labor Balloon dilation of cervix Artificial rupture of membranes Spontaneous vaginal delivery First degree vaginal/perineal laceration Hospital Course: Patient is a 38-year-old 2 para 1 who presents to the on December 15, 2023 for cervical ripening prior to induction of labor. She received 3 doses of misoprostol overnight As well as a Gonzales balloon placement. The Gonzales balloon fell out shortly after placement. On the morning of December 16, 2023 she was dilated 2 cm. She was started on Pitocin. At 6:00 p.m. that night she had made very little cervical change and a decision was made to turn the Pitocin off. A second Gonzales balloon was placed into the cervix the Gonzales fell out overnight and on the more of 1999 A for is dilated to 5 mm. Pitocin was she underwent artificial rupture of membranes. Received an epidural management. She progressed to complete dilation and spontaneous vaginal without occasion. She had a first vaginal/perineal laceration which was Her was equal. She was discharged home on 2019. was going. Her bleeding was bring was ambulating since. And she was voiding spontaneously Peripartum Data Delivery Method: Natural Vaginal Laceration Description: Perineal - 1st Degree and Vaginal - 1st Degree Episiotomy description: None Procedures: misoprostol cervical ripening Gonzales balloon cervical dilation Pitocin induction of labor Artificial rupture of membranes Epidural analgesia Spontaneous vaginal delivery First-degree vaginal/ perineal laceration repair complications: none 1: Gender: Male Disposition of : home Status at Discharge Cognitive/behavioral status at discharge: oriented Functional status at discharge: independent ambulation Overall status at discharge: patient is progressing back to baseline Time Spent with Patient Time attestation: Total time spent providing and/or coordinating discharge services: Time spent: Less than 30 minutes Objective Labs 10/05/24 13:48 Exam Narrative Exam Narrative: Generally: Patient is sitting up in bed, no acute distress Fundus: Firm at U -1 Extremities: 1 edema, negative Homans Discharge Plan Discharge Plan Patient Disposition: Home Provider Discharge Comment: Call with fever, chills, or bleeding vaginally more than a pad in an hour Tylenol 650 mg every 6 hours as needed Ibuprofen 600 mg every 6 hours as needed Discharge orders & Medications Prescriptions: Continued prenat.vits,mayur,[id number] Tablet 1 tab PO DAILY propylthiouracil 50 mg tablet 75 mg PO BID Discontinued valacyclovir [Valtrex] 500 mg tablet 500 mg PO DAILY Qty: 30 0RF No Action (DME) breast pump Device See Rx Instructions .MEDSUPPLY Qty: 1 0RF Rx Instructions: Double electric Follow up/Referrals: Lakisha Epperson MD [Physician] - 6 Weeks (Dr. Epperson followup in 6 weeks Sunday January 28, 2024 @ 3pm.) Diet/Activity/Treatments Diet: Regular Activity: Nothing in the vagina for 6 weeks Skin/Wound/Dressing Care Report to your healthcare provider any signs of infection, such as:: chills, fever, increased pain and unusual drainage Visit Report/Discharge Packet Instructions: Depression, Hemorrhage, DI for Labor and Delivery, Vaginal Stand Alone Forms: Discharge: Care, Patient Portal/API, Stroke Signs & Symptoms Discharge Data Primary Care Provider: Jeanette Wilhelm
== END 2023-12-19 10:35 | disposition home or self-care (01) | DRG 806 ==
PROVIDERS: Admitting Provider Obstetrics & Gynecology; Family Provider Physician Assistant; PCP Physician Assistant; Referring Provider Obstetrics & Gynecology; Visit Provider Obstetrics & Gynecology
DX: O99.892 Other specified diseases and conditions complicating childbirth (principal); G83.4 Cauda equina syndrome; Z37.0 Single live birth; O99.284 Endocrine, nutritional and metabolic diseases complicating childbirth; E05.00 Thyrotoxicosis with diffuse goiter without thyrotoxic crisis or storm; O70.1 Second degree perineal laceration during delivery; O36.63X0 Maternal care for excessive fetal growth, third trimester, not applicable or unspecified; Z3A.38 38 weeks gestation of pregnancy
CPT/HCPCS: 36415; 59050; 59200; 59400; 85014; 85018; 85025; 86850; 86900; 86901; G0378; G0379; J0134; J2405; J2590

== ENCOUNTER → 2024-01-28 15:33 | Outpatient (CLI) | payer OTHER, SELFPAY ==
[2023-04-20 10:01] VITALS: BMI 29.7
== END ==
PROVIDERS: Family Provider Physician Assistant; PCP Physician Assistant; Visit Provider Obstetrics & Gynecology
DX: R30.0 Dysuria (principal); R31.9 Hematuria, unspecified
CPT/HCPCS: 87086

== ENCOUNTER → 2025-01-12 07:41 | Outpatient (CLI) | payer OTHER, SELFPAY ==
[2023-04-20 10:01] VITALS: BMI 29.7
--- NOTE | 2025-01-12 07:42 | DI.MRI.S_ITS ---
PROCEDURE: MR PELVIS WO CON INDICATIONS: pudendal neuralgia, h/o cauda equinae s/p laminectomy TECHNIQUE: Axial 2-D FLASH in- and [id number], axial breath-hold T2 FSE, axial STIR FSE. Optional contrast may be given, followed by axial 2-D FLASH with fat saturation acquired over the lesion of concern. COMPARISON: None. FINDINGS: Image quality: Diagnostic Region of interest: Bilateral pudendal nerves and perineum Bones: Nearby osseous structures demonstrate normal overall marrow signal. Soft tissues: No focal thickening or discretely increased signal of the bilateral pudendal nerves mild the proximal bilateral sciatic nerves within the sciatic notch, or in the visualized S1 through S4 nerves. Visceral structures: Modest and urinary bladder without focal mural thickening. Jet artifact from the bilateral ureters. Unremarkable uterus. Follicles in both ovaries. IMPRESSION: No focal increased signal or focal thickening of the bilateral feet under nerves to suggest neuritis. Dictated by: Raheem Lyn M.D. on 01/15/2025 at 9:09 Approved by: Raheem Lyn M.D. on 01/15/2025 at 9:19
== END ==
LOC: MRI 07:41
PROVIDERS: Family Provider Physician Assistant; PCP Physician Assistant; Referring Provider Obstetrics & Gynecology; Visit Provider Obstetrics & Gynecology
DX: G58.8 Other specified mononeuropathies (principal)
CPT/HCPCS: 72195